=== PATIENT | female | born 1960 | race Caucasian/White ===

== ENCOUNTER → 2018-06-08 16:23 | Outpatient (CLI) | payer BC, SELFPAY ==
--- NOTE | 2018-06-08 16:29 | MM_ITS ---
MM Dig screening mamm BI w/CAD ORDERING PHYSICIAN : William Rosales MD PATIENT AGE: 57 years GENDER: Female COMPARISON: February 2016, March 2015, February 20142014 INDICATION: ITS.REASON: Routine Screening Mammogram. No hormones. No new complaints. Family history. Maternal great aunt with breast cancer TECHNIQUE: Standard CC and MLO images were obtained. R2 CAD reviewed. Additional axillary cc view both breast FINDINGS: Mildly dense breast tissue. . Moderate stable asymmetry similar to multiple previous studies. No new dominant mass nor suspicious calcifications RIGHT BREAST: Stable [place] of fibroglandular density at the superior right breast is unchanged since prior studies. LEFT BREAST: Stable fibroglandular density pattern upper-outer quadrant ----IMPRESSION: --- Stable bilateral mammogram. Follow-up in one year. BI-RADS Category: 2 Benign Finding(s) RECOMMENDED FOLLOW-UP: 1YR 1 YEAR FOLLOW-UP (A letter has been sent to the patient regarding results of the study.) .
== END ==
PROVIDERS: PCP Family Medicine; Visit Provider Nurse Practitioner Obstetrics & Gynecology
DX: Z12.31 Encounter for screening mammogram for malignant neoplasm of breast (principal)
CPT/HCPCS: 77067

== ENCOUNTER → 2019-10-04 14:09 | Outpatient (CLI) | payer BC, SELFPAY ==
--- NOTE | 2019-10-04 14:13 | CA_ITS ---
APPROVED REPORT Bilateral Lower Extremity Venous Study for DVT. Data Operations Director: HENRRY Indications Lower Extremity Pain: Vein Imaging CFV (L): compressive, spontaneous, phasic, augmentation SFJ (L): compressive, spontaneous, phasic, augmentation FEM (L): compressive, spontaneous, phasic, augmentation POP (L): compressive, spontaneous, phasic, augmentation PTV (L): Compressible GSV (L): Compressible Peroneals (L):Compressible Findings No evidence of DVT or superficial thrombophlebitis in the veins scanned of the left lower extremity. Conclusion No evidence of DVT or superficial thrombophlebitis in the veins scanned of the left lower extremity. Electronically signed by : Kody Nur MD 10/04/2019 17:39:59
[2019-10-04 15:36] LABS: Basophils % 0.8 % (0.1-2.0); Eosinophils # 0.1 K/mm3 (0.0-0.4); Eosinophils % 2.6 % (0.1-12.0); Hematocrit 37.6 % (37.0-47.0); Hemoglobin 12.8 g/dL (12.2-16.2); Mean Corpuscular HGB Conc 34.1 g/dL (31.8-35.4); Mean Corpuscular Hemoglobin 32.2 pg (27.0-31.2); Mean Corpuscular Volume 94.5 fl (81-99); Mean Platelet Volume 7.4 fl (7.4-10.4); Monocytes # 0.2 K/mm3 (0.1-1.0); Monocytes % 4.5 % (1.7-9.3); Neutrophils % 74.1 % (37.0-80.0); Platelet Count 303 K/mm3 (142-424); Red Blood Count 3.98 M/mm3 (4.20-5.40); Red Cell Distribution Width 12.9 % (11.5-17.5); White Blood Count 5.3 K/mm3 (4.8-10.8)
[2019-10-04 15:48] LABS: INR 0.96 (0.9-1.1)
[2019-10-04 17:26] LABS: C-Reactive Protein 1.2 mg/L (0-4)
[2019-10-04 17:51] LABS: Thyroid Stimulating Hormone 1.09 uIU/mL (0.465-4.68)
[2019-10-06 16:13] LABS: Vitamin B12 223 pg/mL (232-1245)
== END ==
PROVIDERS: PCP Nurse Practitioner Family; Visit Provider Nurse Practitioner Family
DX: M79.662 Pain in left lower leg (principal); R20.8 Other disturbances of skin sensation; M79.89 Other specified soft tissue disorders
CPT/HCPCS: 36415; 82607; 84443; 85025; 85610; 86140; 93971

== ENCOUNTER → 2020-01-26 13:28 | Outpatient (CLI) | payer BC, SELFPAY ==
--- NOTE | 2020-01-26 13:28 | MM_ITS ---
PROCEDURE: MM DIG SCREENING MAMM BI W/CAD Digital Breast Tomosynthesis Included CLINICAL INDICATION: screening xmg There is a history of breast cancer in the patient's maternal great aunt and paternal aunt. COMPARISON: [facility] DIG MAMM-SCREEN KAYCEE from 02/08/2016 [facility] DIG MAMM-SCREEN KAYCEE W/CAD from 02/17/2017 [facility] MM Dig screening mamm BI w/CAD from 06/08/2018 TECHNIQUE: Standard CC and MLO images and 3D Tomosynthesis was obtained. R2 CAD reviewed. FINDINGS: Moderate scattered fibroglandular densities are seen in the central portions of both breasts. Few benign-appearing microcalcifications in each breast. There is no suspicious lesion and no suspicious microcalcifications. IMPRESSION: Fibrofatty parenchyma with no suspicious lesions seen BI-RAD Category: 2 Benign Finding(s) FOLLOW-UP: 1YR 1 Year Follow-up (A letter has been sent to the patient regarding results of the study.) Dictated by: Dr. Javad Cuevas MD 01/28/2020 11:[address] Javad Cuevas MD in [place] 01/28/2020 11:51
== END ==
PROVIDERS: PCP Nurse Practitioner Family; Visit Provider Nurse Practitioner Obstetrics & Gynecology
DX: Z12.31 Encounter for screening mammogram for malignant neoplasm of breast (principal)
CPT/HCPCS: 77063; 77067

== ENCOUNTER → 2020-08-17 09:04 | Outpatient (CLI) | payer BC, SELFPAY ==
[2020-08-18 07:51] LABS: Covid-19 Nasal PCR Sendout P&C NEGATIVE
== END ==
PROVIDERS: PCP Family Medicine; Visit Provider Nurse Practitioner Family
DX: Z11.52 Encounter for screening for COVID-19 (principal)
CPT/HCPCS: U0004

== ENCOUNTER → 2020-08-28 15:22 | Outpatient (CLI) | payer BC, SELFPAY ==
[2020-08-30 11:41] LABS: Covid-19 Nasal PCR Sendout P&C Negative
== END ==
PROVIDERS: PCP Nurse Practitioner Family; Visit Provider Nurse Practitioner Family
DX: Z20.822 Contact with and (suspected) exposure to COVID-19 (principal)
CPT/HCPCS: U0004

== ENCOUNTER → 2020-12-25 15:26 | Outpatient (CLI) | payer BC, SELFPAY | PROVIDERS: PCP Family Medicine; Visit Provider Nurse Practitioner Family | DX: Z20.822 Contact with and (suspected) exposure to COVID-19 (principal) | CPT/HCPCS: U0003 ==

== ENCOUNTER → 2021-01-31 12:48 | Outpatient (CLI) | payer BC, SELFPAY ==
--- NOTE | 2021-01-31 12:48 | MM_ITS ---
PROCEDURE INFORMATION: Exam: MG Screening 3D Mammography Exam date and time: 01/31/2021 12:48 PM Age: 60 years old Clinical indication: Encounter for screening mammogram for malignant neoplasm of breast Positive family history of breast cancer: Aunts TECHNIQUE: Imaging protocol: Screening tomosynthesis and 2D mammography including computer-aided detection (CAD) when performed. COMPARISON: 1. MG MM DIG SCREENING MAMM BI W/CAD 01/26/2020 1:47 PM 2. MG [facility] MM Dig screening mamm BI w/CAD 06/08/2018 4:39 PM FINDINGS: MAMMOGRAPHY: Breast composition: The breast tissue is heterogeneously dense, which may obscure small masses. Mass: None. Architectural distortion: None. Calcifications: No suspicious calcifications. Asymmetric density: None. Skin thickening: None. Axillary adenopathy: None. IMPRESSION: No mammographic evidence of malignancy. Annual screening is recommended unless otherwise clinically indicated. ASSESSMENT: BI-RADS Category 1: Negative
== END ==
PROVIDERS: PCP Family Medicine; Visit Provider Nurse Practitioner Obstetrics & Gynecology
DX: Z12.31 Encounter for screening mammogram for malignant neoplasm of breast (principal)
CPT/HCPCS: 77063; 77067

== ENCOUNTER 2021-07-04 16:30 | Emergency (ER) | payer BC, SELFPAY ==
[2021-07-04 16:40] VITALS: BP 157/75; PULSE 85; RESP 18; TEMP 37.3; O2SAT 98; BMI 36.5
[2021-07-04 17:13] LABS: UTC Strep Screen (Rapid) Negative (Negative)
--- NOTE | 2021-07-04 17:19 | HMH.EDUTC ---
[facility] [place]ression: Bronchitis Sinusitis Qualifiers: Sinusitis location: unspecified location Chronicity: unspecified Qualified Code(s): J32.9 - Chronic sinusitis, unspecified Disposition: Home, Self-Care Condition on Discharge: Good Instructions: Sinusitis, Acute Bronchitis, DI for Sinusitis Additional Instructions: *Monitor Temp, Over the counter Motrin or Tylenol as directed/as needed Tylenol every 4 hours and Motrin every 6 hours (as long as your family doctor has told you that you can take it) for fever or pain. and straight to ER if unable to lower temp less than 101.0 after medication given *Warm salt water gargles may help to soothe the throat *Throat Lozenges *Warm fluids like tea with honey may help to soothe the throat *Sleep elevated *Humidifier/Vaporizer *Flonase 2 sprays in each nostril daily but be aware that it may take 2-3 days before you notice improvement Your throat swab was sent for culture. Those results are typically sent to your primary care. Be sure to follow up in 2-3 days with your family doctor/primary care physician if no improvement so they can review those result and treat if necessary. If you don?t have a primary care doctor, I recommend you get one but in the mean time, you will have to return to a walk in clinic Follow up IMMEDIATELY for new or worsening symptoms or no Noticeable improvement over the next 48-72 hours. 911 for difficulty breathing or swallowing You were tested for today for COVID19 your test result should be back in the next 24-48 hours, you may Check your results on the [facility] My health portal or in person at the [employer] information from [phone] if you have issues logging vice president of operations [phone] You was given a handout with instructions for Self Quarantine and Self isolation for while you wait on test results and what to do if they are positive If you are positive the Health Dept will be contacting you also Make sure to take your Vitamins Vit. C Vit D and Zinc if you can take them Prescriptions: Benzonatate [Benzonatate 100mg cap] 100 mg PO Q8HP PRN #30 cap PRN Reason: Cough Transmission Status: Received by [facility] Amoxicillin/Potassium Clav [Augmentin 875-125 Tablet] 1 tab PO Q12H 10 Days #20 tab Transmission Status: Received by [facility] Referrals: Umesh Prado MD [Primary Care Provider] - As needed Forms: Work/School Release Time of Disposition: 17:38 Medical Decision Making - Geremias Inquiry Pt receiving controlled substance: No Geremias was queried for this patient: No Vital Signs: 07/04/21 16:40 07/04/21 17:48 Temperature 99.1 F 99.1 F Temperature Source Oral Pulse Rate 85 Pulse Rate [Left Brachial] 85 Respiratory Rate 18 18 Blood Pressure 157/75 H Blood Pressure [Left Arm] 157/75 H Blood Pressure Mean [Left Arm] 102 Blood Pressure Source [Left Arm] Automatic Cuff Blood Pressure Position [Left Arm] Sitting 02 Sat by Pulse Oximetry 98 Oxygen Delivery Method Room Air - Lab Data Lab results reviewed: Yes: I reviewed the patient's lab results. Lab Results 07/04/21 17:12: Strep Scn Rapid Clinic Negative Orders (Tests/Meds): ORDERS Category Date Time Status Covid-19 Nasal PCR ([facility]) Routine Lab 07/04/21 17:30 Received Strep Screen Confirmation Stat Micro 07/04/21 17:12 Received [facility] UTC HPI - General Stated complaint: sore throat,cough,SOB,RILEY,Congestion runny nose Time Seen by Provider: 07/04/21 17:19 Mode of Arrival: Ambulatory Source of Information: Patient Limitations: No Limitations Description of Symptoms (Recalled from Triage Doc. by RN): PATIENT C/O HEADACHE, SORE THROAT, SINUS DRAINAGE, COUGH WITH GREEN MUCOUS, RUNNY NOSE, AND CONGESTION THAT STARTED FRIDAY NIGHT HEENT Symptoms (Recalled from RN notes): Yes Resp Symptoms (Recalled from RN notes): Yes Skin Symptoms (Recalled from RN notes): No MS Symptoms (Recalled from RN notes): No Functional Status (Recalled from RN note
[2021-07-04 17:48] VITALS: BP 157/75; PULSE 85; RESP 18; TEMP 37.3; O2SAT 98
[2021-07-04 17:56] LABS: UTC Influenza A Antigen Negative (Negative)
[2021-07-04 17:57] LABS: UTC Influenza B Antigen Negative (Negative)
== END 2021-07-04 17:53 | disposition home or self-care (01) ==
PROVIDERS: Emergency Provider Nurse Practitioner; PCP Family Medicine
DX: J20.9 Acute bronchitis, unspecified (principal); J32.9 Chronic sinusitis, unspecified; F33.1 Major depressive disorder, recurrent, moderate; K21.9 Gastro-esophageal reflux disease without esophagitis; M79.7 Fibromyalgia; I10 Essential (primary) hypertension; E78.5 Hyperlipidemia, unspecified; Z20.822 Contact with and (suspected) exposure to COVID-19; Z79.899 Other long term (current) drug therapy
CPT/HCPCS: 87804; 87880; 99203; C9803; G0463; U0003; U0005

== ENCOUNTER 2021-07-19 16:34 | Emergency (ER) | payer BC, SELFPAY ==
[2021-07-19 17:27] VITALS: BP 130/80; PULSE 74; RESP 16; TEMP 37; O2SAT 96; BMI 36.8
--- NOTE | 2021-07-19 17:56 | HMH.EDUTC ---
[facility] [place] Disposition Clinical Impression: Sinusitis Qualifiers: Sinusitis location: unspecified location Chronicity: unspecified Qualified Code(s): J32.9 - Chronic sinusitis, unspecified Disposition: Home, Self-Care Condition on Discharge: Good Instructions: Sinusitis, DI for Sinusitis Additional Instructions: *Monitor Temp, Over the counter Motrin or Tylenol as directed/as needed Tylenol every 4 hours and Motrin every 6 hours (as long as your family doctor has told you that you can take it) for fever or pain. and straight to ER if unable to lower temp less than 101.0 after medication given *Warm salt water gargles may help to soothe the throat *Throat Lozenges *Warm fluids like tea with honey may help to soothe the throat *Sleep elevated *Humidifier/Vaporizer Start Azithromycin Follow up IMMEDIATELY for new or worsening symptoms or no Noticeable improvement over the next 48-72 hours. 911 for difficulty breathing or swallowing Prescriptions: Azithromycin [Z-Praveen 250mg Tab] 250 mg PO DIRECTED #6 tab Transmission Status: Received by [facility] Referrals: Umesh Prado MD [Primary Care Provider] - Medical Decision Making - Geremias Inquiry Pt receiving controlled substance: No Geremias was queried for this patient: No Vital Signs: 07/19/21 17:27 Temperature 98.6 F Temperature Source Oral Pulse Rate [Right Radial] 74 Respiratory Rate 16 Blood Pressure [Right Arm] 130/80 Blood Pressure Mean [Right Arm] 96 Blood Pressure Source [Right Arm] Automatic Cuff Blood Pressure Position [Right Arm] Sitting 02 Sat by Pulse Oximetry 96 Oxygen Delivery Method Room Air Orders (Tests/Meds): ED MEDICATIONS Discontinued Medications Generic Name Dose Route Start Last Admin Trade Name Freq PRN Reason Stop Dose Admin Methylprednisolone Sodium Succinate 125 mg 07/19/21 18:09 07/19/21 18:21 Methylprednisolone Sod Succ 125mg Vial IM 07/19/21 18:10 125 mg ONCE ONE Administration Medical Decision Narrative: Patient state that she has taken azithromycin and solu medrol in the past without complications or reactions [facility] [place] HPI - General Stated complaint: SORE THROAT,COUGH Time Seen by Provider: 07/19/21 17:57 Mode of Arrival: Ambulatory Source of Information: Patient Limitations: No Limitations Description of Symptoms (Recalled from Triage Doc. by RN): Pt was put on augmentin on 07/04/2021 and does not feel any better from previous visit. She was diagnosed with bronchitis and a sinus infection. HEENT Symptoms (Recalled from RN notes): No Resp Symptoms (Recalled from RN notes): No Skin Symptoms (Recalled from RN notes): No MS Symptoms (Recalled from RN notes): No Functional Status (Recalled from RN notes): n/a - History of Present Illness Provider Complaint: Patient states that she was recently seen and treated for sinusitis States that she was feeling better then after she finished the medication and then the symptoms returned so she came back in to get something else to help - Related Data Home Medications Medication Instructions Recorded Confirmed Amitriptyline HCl [Elavil 50mg 50 mg PO DAILY 11/18/17 02/19/21 tablet] Aspirin [Aspir 81] 81 mg PO DAILY 11/18/17 02/19/21 Cetirizine HCl [Zyrtec] 10 mg PO DAILY 11/18/17 02/19/21 Esomeprazole Magnesium [Nexium] 20 mg PO DAILY 11/18/17 02/19/21 Gabapentin [Gabapentin 300mg Cap] 300 mg PO BID 11/18/17 02/19/21 Simvastatin [Zocor] 40 mg PO DAILY 11/18/17 02/19/21 Tizanidine HCl [Zanaflex 4mg 4 mg PO DAILY 11/18/17 02/19/21 tablet] Triamterene/Hydrochlorothiazid 25 mg PO DAILY 11/18/17 02/19/21 [Maxzide-25 tablet] atenoloL [Atenolol 50mg Tab] 50 mg PO DAILY 11/18/17 02/19/21 hydrOXYzine pamoate [Vistaril 25mg 25 mg PO DIRECTED 11/18/17 02/19/21 capsule] albuterol sulfate 90 mcg/actuation INHALATION 09/28/19 02/19/21 aerosol inhaler fluticasone propionate 50 INTRANASAL 09/28/19 02/19/21 mcg/actuation nasal spray,suspen
[2021-07-19 19:02] VITALS: BP 130/80; PULSE 74; RESP 16; TEMP 37; O2SAT 96
== END 2021-07-19 19:02 | disposition home or self-care (01) ==
PROVIDERS: Emergency Provider Nurse Practitioner; PCP Family Medicine
DX: J01.90 Acute sinusitis, unspecified (principal); J45.909 Unspecified asthma, uncomplicated; Z91.040 Latex allergy status; F33.1 Major depressive disorder, recurrent, moderate; I10 Essential (primary) hypertension; E78.5 Hyperlipidemia, unspecified; K21.9 Gastro-esophageal reflux disease without esophagitis; Z79.899 Other long term (current) drug therapy
CPT/HCPCS: 99202; G0463

== ENCOUNTER 2021-08-12 14:15 | Emergency (ER) | payer BC, SELFPAY ==
[2021-08-12 16:30] VITALS: BP 126/86; PULSE 76; RESP 21; TEMP 37.8; O2SAT 99; BMI 36.3
[2021-08-12 16:56] LABS: UTC Influenza A Antigen Negative (Negative)
[2021-08-12 16:57] LABS: UTC Influenza B Antigen Negative (Negative)
--- NOTE | 2021-08-12 17:05 | HMH.EDUTC ---
[facility] [place] Clinical Impression: Sinusitis Qualifiers: Sinusitis location: maxillary Chronicity: acute Recurrence: non-recurrent Qualified Code(s): J01.00 - Acute maxillary sinusitis, unspecified Disposition: Home, Self-Care Condition on Discharge: Good Instructions: DI for Sinusitis Additional Instructions: Start antibiotic patient to take as ordered for a full length of time even if you feel better. Sinus infections do not get better overnight. It may take 2-3 days to notice much improvement so be sure to use conservative measures as discussed for symptoms. Flonase 1 spray each nostril daily to help with nasal congestion, sinus and ear pressure/information Increase fluids Humidifier/vaporizer as needed Tylenol and ibuprofen as needed for fever or pain. If symptoms do not improve or get worse return or be seen in the ER Follow-up with primary care this week Prescriptions: cephALEXin [Cephalexin 500mg Tab] 500 mg PO BID 7 Days #14 tab Prescription Printed Fluticasone Propionate [Flonase 50mcg nasal spray 16gm] 1 spr NS DAILY 14 Days #9.9 ml Prescription Printed Referrals: Umesh Prado MD [Primary Care Provider] - Time of Disposition: 17:18 Medical Decision Making - Geremias Inquiry Pt receiving controlled substance: No Vital Signs: 08/12/21 16:30 Temperature 100.0 F H Temperature Source Oral Pulse Rate [Right Brachial] 76 Respiratory Rate 21 Blood Pressure [Right Arm] 126/86 Blood Pressure Mean [Right Arm] 99 Blood Pressure Source [Right Arm] Automatic Cuff Blood Pressure Position [Right Arm] Sitting 02 Sat by Pulse Oximetry 99 Oxygen Delivery Method Room Air - Lab Data Lab Results 08/12/21 16:42: Influenza Type A Ag Negative, Influenza Type B Ag Negative Orders (Tests/Meds): ORDERS Category Date Time Status Covid-19 Nasal PCR ([facility]) Routine Lab 08/12/21 16:33 Received [facility] [place]PI - General Chief complaint: [facility] Stated complaint: sore throat, cough, body aches, congestion, h/a Time Seen by Provider: 08/12/21 17:06 Mode of Arrival: Ambulatory Source of Information: Patient Limitations: No Limitations Description of Symptoms (Recalled from Triage Doc. by RN): PATIENT C/O FEVER, COUGH, HEADACHE, BODY ACHES, RUNNY NOSE, CONGESTION, AND WATERY EYES SINCE LAST NIGHT HEENT Symptoms (Recalled from RN notes): Yes Resp Symptoms (Recalled from RN notes): Yes Skin Symptoms (Recalled from RN notes): No MS Symptoms (Recalled from RN notes): No Functional Status (Recalled from RN notes): WNL - History of Present Illness Provider Complaint: 61 yr old female presnets for coughing up yellow/green sputum, yellow nasal congestion,body aches,and fever - Related Data Home Medications Medication Instructions Recorded Confirmed Amitriptyline HCl [Elavil 50mg 50 mg PO DAILY 11/18/17 02/19/21 tablet] Aspirin [Aspir 81] 81 mg PO DAILY 11/18/17 02/19/21 Cetirizine HCl [Zyrtec] 10 mg PO DAILY 11/18/17 02/19/21 Esomeprazole Magnesium [Nexium] 20 mg PO DAILY 11/18/17 02/19/21 Gabapentin [Gabapentin 300mg Cap] 300 mg PO BID 11/18/17 02/19/21 Simvastatin [Zocor] 40 mg PO DAILY 11/18/17 02/19/21 Tizanidine HCl [Zanaflex 4mg 4 mg PO DAILY 11/18/17 02/19/21 tablet] Triamterene/Hydrochlorothiazid 25 mg PO DAILY 11/18/17 02/19/21 [Maxzide-25 tablet] atenoloL [Atenolol 50mg Tab] 50 mg PO DAILY 11/18/17 02/19/21 hydrOXYzine pamoate [Vistaril 25mg 25 mg PO DIRECTED 11/18/17 02/19/21 capsule] albuterol sulfate 90 mcg/actuation INHALATION 09/28/19 02/19/21 aerosol inhaler fluticasone propionate 50 INTRANASAL 09/28/19 02/19/21 mcg/actuation nasal spray,suspension omalizumab 150 mg subcutaneous mg SQ 09/28/19 02/19/21 solution prednisone 5 mg tablet 5 mg PO Q OTHER DAY tab 09/28/19 02/19/21 alprazolam 0.25 mg tablet 0.25 mg PO DAILY 01/30/21 02/19/21 folic acid 1 mg tablet 1 mg PO tab 01/30/21 02/19/21 methotrexate sodium 2.5 mg tablet 2.5 mg PO tab 01/30
[2021-08-12 17:12] VITALS: BP 126/86; PULSE 76; RESP 21; TEMP 37.8; O2SAT 99
== END 2021-08-12 17:21 | disposition home or self-care (01) ==
PROVIDERS: Emergency Provider Nurse Practitioner Family; PCP Family Medicine
DX: U07.1 COVID-19 (principal); J01.00 Acute maxillary sinusitis, unspecified; F33.1 Major depressive disorder, recurrent, moderate; K21.9 Gastro-esophageal reflux disease without esophagitis; I10 Essential (primary) hypertension; E78.5 Hyperlipidemia, unspecified; M79.7 Fibromyalgia; Z91.040 Latex allergy status; Z79.899 Other long term (current) drug therapy
CPT/HCPCS: 87804; 99202; C9803; G0463; U0003; U0005

== ENCOUNTER 2021-10-02 16:35 | Emergency (ER) | payer BC, SELFPAY ==
[2021-10-02 17:02] VITALS: BP 176/78; PULSE 68; RESP 19; TEMP 37; O2SAT 98; BMI 36.7
--- NOTE | 2021-10-02 17:23 | HMH.EDUTC ---
[facility] [place] Disposition Clinical Impression: Sinusitis Qualifiers: Sinusitis location: unspecified location Chronicity: unspecified Qualified Code(s): J32.9 - Chronic sinusitis, unspecified Disposition: Home, Self-Care Condition on Discharge: Good Instructions: Sinusitis, DI for Sinusitis Additional Instructions: *Monitor Temp, Over the counter Motrin or Tylenol as directed/as needed Tylenol every 4 hours and Motrin every 6 hours (as long as your family doctor has told you that you can take it) for fever or pain. and straight to ER if unable to lower temp less than 101.0 after medication given *Warm salt water gargles may help to soothe the throat *Throat Lozenges *Warm fluids like tea with honey may help to soothe the throat *Sleep elevated *Humidifier/Vaporizer Take medication as prescribed Follow up IMMEDIATELY for new or worsening symptoms or no Noticeable improvement over the next 48-72 hours. 911 for difficulty breathing or swallowing Prescriptions: Doxycycline Monohydrate [Doxycycline Boyle 100mg Tab] 100 mg PO Q12 10 Days #20 tab Transmission Status: Pending to [facility] Referrals: Umesh Prado MD [Primary Care Provider] - As needed Time of Disposition: 17:38 Medical Decision Making - Geremias Inquiry Pt receiving controlled substance: No Geremias was queried for this patient: No Vital Signs: 10/02/21 17:02 Temperature 98.6 F Temperature Source Oral Pulse Rate [Right Brachial] 68 Respiratory Rate 19 Blood Pressure [Right Arm] 176/78 H Blood Pressure Mean [Right Arm] 110 Blood Pressure Source [Right Arm] Automatic Cuff Blood Pressure Position [Right Arm] Sitting 02 Sat by Pulse Oximetry 98 Medical Decision Narrative: Patient states that she has taken doxy and Solu Medrol in the past without complications or reactions [facility] [place] HPI - General Stated complaint: possible sinus infection Time Seen by Provider: 10/02/21 17:31 Description of Symptoms (Recalled from Triage Doc. by RN): Pt c/o sinus pressure, HEENT Symptoms (Recalled from RN notes): Yes Resp Symptoms (Recalled from RN notes): No Skin Symptoms (Recalled from RN notes): No MS Symptoms (Recalled from RN notes): No Functional Status (Recalled from RN notes): wnl - History of Present Illness Provider Complaint: Patient states that she has been having sinus pain and pressure along with headache and feeling pressure in her ears States that this is how she feels when she gets a bad sinus infection States that she has been trying to fight it off for the last couple of weeks but today it was worse so she came in - Related Data Home Medications Medication Instructions Recorded Confirmed Amitriptyline HCl [Elavil 50mg 50 mg PO DAILY 11/18/17 08/29/21 tablet] Aspirin [Aspir 81] 81 mg PO DAILY 11/18/17 08/29/21 Cetirizine HCl [Zyrtec] 10 mg PO DAILY 11/18/17 08/29/21 Esomeprazole Magnesium [Nexium] 20 mg PO DAILY 11/18/17 08/29/21 Gabapentin [Gabapentin 300mg Cap] 300 mg PO BID 11/18/17 08/29/21 Simvastatin [Zocor] 40 mg PO DAILY 11/18/17 08/29/21 Tizanidine HCl [Zanaflex 4mg 4 mg PO DAILY 11/18/17 08/29/21 tablet] Triamterene/Hydrochlorothiazid 25 mg PO DAILY 11/18/17 08/29/21 [Maxzide-25 tablet] atenoloL [Atenolol 50mg Tab] 50 mg PO DAILY 11/18/17 08/29/21 hydrOXYzine pamoate [Vistaril 25mg 25 mg PO DIRECTED 11/18/17 08/29/21 capsule] albuterol sulfate 90 mcg/actuation INHALATION 09/28/19 08/29/21 aerosol inhaler omalizumab 150 mg subcutaneous mg SQ 09/28/19 08/29/21 solution alprazolam 0.25 mg tablet 0.25 mg PO DAILY 01/30/21 08/29/21 folic acid 1 mg tablet 1 mg PO tab 01/30/21 08/29/21 methotrexate sodium 2.5 mg tablet 2.5 mg PO tab 01/30/21 08/29/21 paroxetine HCl 40 mg tablet 40 mg PO tab 01/30/21 08/29/21 Previous Rx's Medication Instructions Recorded estradiol 1 mg tablet 1 mg PO DAILY #90 tab 01/10/21 medroxyprogesterone 2.5 mg tablet 2.5 mg PO DAILY #90 tab 01/10/21 terconazole 0.8 % vaginal cre
[2021-10-02 18:00] VITALS: BP 164/70; PULSE 70; RESP 16; TEMP 36.6; O2SAT 98
== END 2021-10-02 18:02 | disposition home or self-care (01) ==
PROVIDERS: Emergency Provider Nurse Practitioner; PCP Family Medicine
DX: J32.9 Chronic sinusitis, unspecified (principal); K21.9 Gastro-esophageal reflux disease without esophagitis
CPT/HCPCS: 96372; 99212; G0463

== ENCOUNTER 2021-11-10 15:47 | Emergency (ER) | payer BC, SELFPAY ==
--- NOTE | 2021-11-10 16:21 | XR_ITS ---
PROCEDURE INFORMATION: Exam: XR Chest Exam date and time: 11/10/2021 4:19 PM Age: 61 years old Clinical indication: Cough; Additional info: Chest congestion and cough TECHNIQUE: Imaging protocol: XR of the chest. Views: 2 views. COMPARISON: CR CXR2V XR chest 2V 11/22/2017 8:38 PM FINDINGS: Lungs: Unremarkable. No consolidation. Pleural spaces: Unremarkable. No pleural effusion. No pneumothorax. Heart/Mediastinum: Unremarkable. No cardiomegaly. Bones/joints: Unremarkable. IMPRESSION: No acute findings.
[2021-11-10 16:32] VITALS: BP 172/74; PULSE 81; RESP 18; TEMP 36.9; O2SAT 96; BMI 50.8
--- NOTE | 2021-11-10 17:22 | HMH.EDUTC ---
[facility] Disposition Clinical Impression: Acute bronchitis Qualifiers: Bronchitis organism: unspecified organism Qualified Code(s): J20.9 - Acute bronchitis, unspecified Sinusitis Qualifiers: Sinusitis location: unspecified location Chronicity: acute Recurrence: non-recurrent Qualified Code(s): J01.90 - Acute sinusitis, unspecified Disposition: Home, Self-Care Condition on Discharge: Good Instructions: Acute Bronchitis, DI for Sinusitis, DI for Acute Bronchitis Additional Instructions: Drink plenty of fluids. Take tylenol or ibuprofen for pain or fever. Take the medications as directed. Follow up with your regular doctor. GO TO THE ER FOR ANY WORSENING SYMPTOMS Don't start the oral steroids until tomorrow, since you had the shot here today. Prescriptions: Benzonatate [Benzonatate 100mg cap] 100 mg PO TIDP PRN #30 cap PRN Reason: Cough Transmission Status: Received by [facility] methylPREDNISolone [Medrol] 4 mg PO DIRECTED 6 Days #21 packet Transmission Status: Received by [facility] guaiFENesin [Mucinex 600mg tablet] 1 - 2 tab PO BIDP PRN #30 tab PRN Reason: Congestion Transmission Status: Received by [facility] Azithromycin [Z-Praveen 250mg Tab*] 250 mg PO UD DOSE PK #6 tab Transmission Status: Received by [facility] Referrals: Sofia Suarez APRN [Primary Care Provider] - Time of Disposition: 17:58 Medical Decision Making - Medical Records Medical records reviewed: No: I reviewed the patient's medical records. - Geremias Inquiry Pt receiving controlled substance: No Vital Signs: 11/10/21 16:32 11/10/21 18:10 Temperature 98.5 F 98.5 F Temperature Source Oral Pulse Rate 81 Pulse Rate [Left] 81 Respiratory Rate 18 18 Blood Pressure 172/74 H Blood Pressure [Right Arm] 172/74 H Blood Pressure Mean [Right Arm] 106 02 Sat by Pulse Oximetry 96 Orders (Tests/Meds): ED MEDICATIONS Discontinued Medications Generic Name Dose Route Start Last Admin Trade Name Freq PRN Reason Stop Dose Admin Ceftriaxone Sodium 1 gm 11/10/21 17:33 11/10/21 17:50 Ceftriaxone 1gm Vial IM 11/10/21 17:34 1 gm ONCE ONE Administration Lidocaine HCl 0 ml 11/10/21 17:33 11/10/21 17:49 Lidocaine 1% 5ml Pf Vial IM 11/10/21 17:34 2 ml ONCE ONE Administration Methylprednisolone Sodium Succinate 125 mg 11/10/21 17:33 11/10/21 17:50 Methylprednisolone Sod Succ 125mg Vial IM 11/10/21 17:34 125 mg ONCE ONE Administration [facility] HPI - General Stated complaint: soa, flu last week Time Seen by Provider: 11/10/21 17:22 Mode of Arrival: Ambulatory Source of Information: Patient Limitations: No Limitations Description of Symptoms (Recalled from Triage Doc. by RN): pt tested positive for the flu last weekend. pt c/o SOA, cheset congestion and a cough that has continued to worsen. HEENT Symptoms (Recalled from RN notes): No Resp Symptoms (Recalled from RN notes): Yes Skin Symptoms (Recalled from RN notes): No MS Symptoms (Recalled from RN notes): No Functional Status (Recalled from RN notes): wnl - History of Present Illness Provider Complaint: She states that she had influenza last week. She got better from that, but now she is having a productive cough and chest congestion. - Related Data Home Medications Medication Instructions Recorded Confirmed Amitriptyline HCl [Elavil 50mg 50 mg PO DAILY 11/18/17 08/29/21 tablet] Aspirin [Aspir 81] 81 mg PO DAILY 11/18/17 08/29/21 Cetirizine HCl [Zyrtec] 10 mg PO DAILY 11/18/17 08/29/21 Esomeprazole Magnesium [Nexium] 20 mg PO DAILY 11/18/17 08/29/21 Gabapentin [Gabapentin 300mg Cap] 300 mg PO BID 11/18/17 08/29/21 Simvastatin [Zocor] 40 mg PO DAILY 11/18/17 08/29/21 Tizanidine HCl [Zanaflex 4mg 4 mg PO DAILY 11/18/17 08/29/21 tablet] Triamterene/Hydrochlorothiazid 25 mg PO DAILY 11/18/17 08/29/21 [Maxzide-25 tablet] atenoloL [Atenolol 50mg Tab] 50 mg PO DAILY 11/18/17 08/29/21
[2021-11-10 18:10] VITALS: BP 172/74; PULSE 81; RESP 18; TEMP 36.9
== END 2021-11-10 18:11 | disposition home or self-care (01) ==
PROVIDERS: Emergency Provider Nurse Practitioner Family; PCP Nurse Practitioner Family
DX: J20.9 Acute bronchitis, unspecified (principal); J01.90 Acute sinusitis, unspecified; I10 Essential (primary) hypertension; K21.9 Gastro-esophageal reflux disease without esophagitis; E78.5 Hyperlipidemia, unspecified; M35.00 Sjogren syndrome, unspecified; F32.A Depression, unspecified; Z91.040 Latex allergy status; Z79.51 Long term (current) use of inhaled steroids; Z79.52 Long term (current) use of systemic steroids; Z79.890 Hormone replacement therapy; Z79.899 Other long term (current) drug therapy; Z82.49 Family history of ischemic heart disease and other diseases of the circulatory system; Z83.438 Family history of other disorder of lipoprotein metabolism and other lipidemia; Z80.9 Family history of malignant neoplasm, unspecified; Z83.3 Family history of diabetes mellitus
CPT/HCPCS: 71046; 96372; 99213; G0463; J0696

== ENCOUNTER → 2022-02-19 09:52 | Outpatient (CLI) | payer BC, SELFPAY ==
--- NOTE | 2022-02-19 09:52 | MM_ITS ---
PROCEDURE INFORMATION: Exam: MG Bilateral Screening 3D Mammography Exam date and time: 02/19/2022 9:49 AM Age: 61 years old Clinical indication: Screening examination TECHNIQUE: Imaging protocol: Bilateral Screening tomosynthesis and 2D mammography including computer-aided detection (CAD) when performed. COMPARISON: 1. MG MM DIG SCREENING MAMM BI W/CAD 01/31/2021 12:58 PM 2. MG MM DIG SCREENING MAMM BI W/CAD 01/26/2020 1:47 PM FINDINGS: MAMMOGRAPHY: Breast composition: The breasts are heterogeneously dense, which may obscure small masses. Mass: None. Architectural distortion: None. Calcifications: No suspicious calcifications. Asymmetric density: None. Skin thickening: None. Axillary adenopathy: None. IMPRESSION: No mammographic evidence of malignancy. Annual screening is recommended unless otherwise clinically indicated. ASSESSMENT: BI-RADS Category 1: Negative
== END ==
PROVIDERS: PCP Nurse Practitioner Family; Visit Provider Nurse Practitioner Obstetrics & Gynecology
DX: Z12.31 Encounter for screening mammogram for malignant neoplasm of breast (principal)
CPT/HCPCS: 77063; 77067

== ENCOUNTER → 2023-02-13 12:25 | Outpatient (CLI) | payer BC, SELFPAY ==
--- NOTE | 2023-02-13 12:35 | ECG_ITS ---
APPROVED REPORT Exam: Resting ECG HR:76 bpm ECG Measurements Heart Rate 76 AXES UT 132 P 9 QRSd 105 QRS 10 QT 409 T 52 QTc 439 Conclusion SINUS RHYTHM LOW QRS VOLTAGE IN PRECORDIAL LEADS [QRS DEFLECTION < 1.0 mV IN CHEST LEADS] Late R wave progression BORDERLINE ECG UNCONFIRMED REPORT Electronically signed by : Umesh Walter MD 02/13/2023 21:33:52
--- NOTE | 2023-02-13 12:50 | XR_ITS ---
FINAL REPORT CLINICAL HISTORY: SOB X 5 DAYS, PRODUCTIVE COUGH COMPARISON: 11/10/2021 FINDINGS: Two views of the chest were obtained. The heart size and pulmonary vascularity are within normal limits. The mediastinum is normal. No acute pulmonary abnormality is identified. There is no pneumothorax. The bony thorax is intact. IMPRESSION: No active cardiopulmonary disease. Reviewed, Interpreted and Dictated by Anastacio Almazan III, MD Transcribed by Minal Alfonso Authenticated and . [facility]
[2023-02-13 12:51] LABS: Basophils # 0.1 K/mm3 (0-0.2); Basophils % 0.8 % (0.1-2.0); Eosinophils # 0.1 K/mm3 (0.0-0.4); Eosinophils % 1.1 % (0.1-12.0); Hematocrit 33.1 % (37.0-47.0); Lymphocytes # 3.7 K/mm3 (0.7-4.5); Lymphocytes % 57.8 % (10-50); Mean Corpuscular HGB Conc 33.1 g/dL (31.8-35.4); Mean Corpuscular Hemoglobin 29.8 pg (27.0-31.2); Mean Corpuscular Volume 90.1 fl (81-99); Mean Platelet Volume 10.3 fl (7.4-10.4); Monocytes # 0.3 K/mm3 (0.1-1.0); Monocytes % 4.4 % (1.7-9.3); Neutrophils # 2.3 K/mm3 (1.8-7.8); Neutrophils % 35.9 % (37.0-80.0); Platelet Count 192 K/mm3 (142-424); Red Blood Count 3.68 M/mm3 (4.20-5.40); Red Cell Distribution Width 14.3 % (11.5-17.5); White Blood Count 6.3 K/mm3 (4.8-10.8)
[2023-02-13 13:01] LABS: MANUAL DIFFERENTIAL MANUAL DIFFERENTIAL (MANUAL DIFF)
[2023-02-13 13:38] LABS: Chloride 94 mmol/L (98-107); Potassium 3.6 mmoL/L (3.5-5.1); Sodium 129 mmol/L (136-145)
[2023-02-13 13:48] LABS: Alanine Aminotransferase 44 U/L (12-78); Albumin Level 3.3 g/dl (3.5-5.0); Albumin/Globulin Ratio 1.3 (1.1-1.8); Alkaline Phosphatase 139 U/L (38-126); Anion Gap 9.6 mEq/L (5-15); Aspartate Amino Transferase 57 U/L (14-36); Bilirubin,Total 0.4 mg/dl (0.2-1.3); Blood Urea Nitrogen 9 mg/dl (7-17); Calcium 8.2 mg/dl (8.4-10.2); Carbon Dioxide 29 mmol/L (22.0-30.0); Chol/HDL Ratio 3.5 (1-3.5); Cholesterol 109 mg/dl (140-200); Estimated Glomerular Filt Rate 73 ml/min (>60); GFR (African American) 88 ML/MIN (>60); Globulin 2.5 g/dL (1.3-3.2); Glucose 120 mg/dl (74-100); HDL Cholesterol 31 mg/dl (40-60); Total Protein,Serum 5.8 g/dl (6.3-8.2); Triglycerides 290 mg/dl (30-150); VLDL Cholesterol 58 mg/dL (0-40)
[2023-02-13 13:53] LABS: Direct LDL Cholesterol 44.22 mg/dL (100-129)
[2023-02-13 13:54] LABS: Troponin I 0.02 ng/ml (0.00-0.034)
[2023-02-13 14:12] LABS: Thyroid Stimulating Hormone 2.28 uIU/mL (0.465-4.68)
[2023-02-13 14:19] LABS: Ferritin 173 ng/ml (11.1-264)
[2023-02-13 14:39] LABS: Vitamin B12 234 pg/mL (239-931)
[2023-02-13 14:50] LABS: Eosinophils % 1 % (0-3); Lymphocytes % 18 % (10-50); Monocytes % 6 % (2-9); Neutrophils % 75 % (42-76); Platelet Estimate Normal; RBC Morphology Normal; Total Cells Counted 100
[2023-02-14 16:08] LABS: EBV Ab VCA, IgM 57.6 U/mL (0.0-35.9); EBV Nuclear Antigen Ab, IgG >600.0 U/mL (0.0-17.9)
== END ==
LOC: LAB 12:26
PROVIDERS: PCP Nurse Practitioner Family; Visit Provider Nurse Practitioner Family
DX: R06.02 Shortness of breath (principal); D72.819 Decreased white blood cell count, unspecified; R53.1 Weakness
CPT/HCPCS: 36415; 71046; 80053; 80061; 82607; 82728; 84443; 84484; 85007; 85025; 86664; 86665; 93005

== ENCOUNTER → 2023-02-24 13:04 | Outpatient (CLI) | payer BC, SELFPAY ==
--- NOTE | 2023-02-24 13:04 | MM_ITS ---
PROCEDURE INFORMATION: Exam: MG Bilateral Screening 3D Mammography Exam date and time: 02/24/2023 12:53 PM Age: 62 years old Clinical indication: Screening. No family history of breast cancer. TECHNIQUE: Imaging protocol: Bilateral Screening tomosynthesis and 2D mammography including computer-aided detection (CAD) when performed. COMPARISON: 1. MG MM DIG SCREENING MAMM BI W/CAD 02/19/2022 9:49 AM 2. MG MM DIG SCREENING MAMM BI W/CAD 01/31/2021 12:58 PM 3. MG MM DIG SCREENING MAMM BI W/CAD 01/26/2020 1:47 PM 4. MG SCBI MM Dig screening mamm BI w/CAD 06/08/2018 4:39 PM FINDINGS: MAMMOGRAPHY: Breast composition: The breasts are heterogeneously dense, which may obscure small masses. Mass: Questionable 0.4 cm mass/asymmetry in the outer left breast posterior 3rd, CC view only, frame 24. Architectural distortion: None. Calcifications: No suspicious calcifications. Asymmetric density: None. Skin thickening: None. Axillary adenopathy: None. IMPRESSION: Patient will be recalled for left diagnostic spot compression in CC, full field lateral, and left sonography for further evaluation questionable left breast asymmetry. ASSESSMENT: BI-RADS Category 0: Incomplete- Need Additional Imaging Evaluation and/or Prior Mammograms for Comparison
== END ==
PROVIDERS: PCP Nurse Practitioner Family; Visit Provider Nurse Practitioner Obstetrics & Gynecology
DX: Z12.31 Encounter for screening mammogram for malignant neoplasm of breast (principal)
CPT/HCPCS: 77063; 77067

== ENCOUNTER → 2023-03-07 15:10 | Outpatient (CLI) | payer BC, SELFPAY ==
--- NOTE | 2023-03-07 15:12 | CA_ITS ---
APPROVED REPORT EXAM: Comprehensive 2D, Doppler, and color-flow Echocardiogram Flask Carrier: Tosin Hawkins, RCS, RVS Ht: 5 ft 4 in Wt: 206lbs BSA: 1.98 BP: 123/55 mmHg Indications: Cp, ABN EKG, htn, Sjogrens syndrome 2D Dimensions Aortic Root 2.93 cm F: 2.7 - 3.3 LA Volume 76.80 mL Left Atrium 3.76 cm F: 2.7 - 3.8 LA Volume Index 38.79 mL/m2 (M/F) 16-34 LVOT 2.06 cm (M/F) 1.5-2.5 M-Mode Dimensions RVDd 2.55 cm (0.9-2.6) LA Diam 4.57 cm (1.9-4.0) LVDd 4.90 cm (3.5-5.7) Ao Diam 3.20 cm (2.0-3.7) LVDs 3.46 cm (3.5-5.7) IVSd 0.87 cm (0.6-1.1) PWd 0.87 cm (0.6-1.1) EF (Teich) 56.10% EPSs 0.27 cm FS 29.40% EDV (Teich) 112.80 mL TAPSE 2.66 (<1.7) ESV (Teich) 49.50 mL LV Diastology E Decel Time 197.00 (160-240 msec) E/A Ratio 0.99 MED E' 8.30 (< 7 cm/sec) MED A' 10.60 cm/s E'/MED E' Ratio 8.17 (>14) LAT E' 11.50 (<10 cm/sec) LAT A' 13.50 cm/s E/LAT E' Ratio 5.90 (>14) Aortic Valve LVOT Max 99.00 (70-110 cm/s) LVOT VTI 23.59 cm AoV Peak Bernardino. 154.00 (50-130 cm/s) AO Peak GR. 9.50 mmHg AO Mean GR. 4.70 (<5 mmHg) AO VTI 34.87 (18-25 cm) LISANDRO (VTI) 2.25 (2.5-4.5 cm2) Mitral Valve MV A Velocity 68.00 (40-130 cm/s) E/A Ratio 0.99 MV Decel. Time 197.00 (160-240 ms) Pulmonary Valve PV Peak Velocity 164.00 (50-150 cm/s) Left Ventricle The left ventricle is normal size. The left ventricular systolic function is normal. The left ventricular ejection fraction is within the normal range. There is normal left ventricular wall thickness. The left ventricular diastolic function is normal. LVEF is 60%. Right Ventricle The right ventricle is normal size. The right ventricular systolic function is normal. Atria Left atrium is mildly dilated. The right atrium size is normal. There is no Doppler evidence of interatrial shunt. Aortic Valve The aortic valve opens well. There is no aortic valvular stenosis. No aortic regurgitation is present. Mitral Valve The mitral valve is normal in structure. No evidence of mitral valve stenosis. Trace mitral regurgitation. Tricuspid Valve The tricuspid valve leaflets are thin and pliable. Trace tricuspid regurgitation. RVSP is normal. Pulmonic Valve The pulmonary valve is normal in structure. Trace pulmonic regurgitation. Great Vessels The aortic root is normal in size. The ascending aorta is not well visualized. IVC is normal in size and collapses >50% with inspiration. Pericardium There is no pericardial effusion. Other Information Study Quality: Adequate Conclusion Normal biventricular systolic function. No significant valvular disease. Normal RVSP. Electronically signed by : Mirta Thompson, 03/09/2023 14:48:03
== END ==
LOC: RT 15:10
PROVIDERS: PCP Nurse Practitioner Family; Visit Provider Physician Assistant
DX: R07.9 Chest pain, unspecified (principal); R94.31 Abnormal electrocardiogram [ECG] [EKG]; Z82.49 Family history of ischemic heart disease and other diseases of the circulatory system
CPT/HCPCS: 93306

== ENCOUNTER → 2023-03-17 14:40 | Outpatient (CLI) | payer BC, SELFPAY ==
--- NOTE | 2023-03-17 14:41 | US_ITS ---
PROCEDURE INFORMATION: Exam: US Left Breast, Complete MG Left Diagnostic Breast Tomosynthesis Exam date and time: 03/17/2023 3:26 PM Age: 62 years old Clinical indication: Patient recalled on the basis of a screening mammogram for further evaluation; Left breast; mass TECHNIQUE: Imaging protocol: Complete ultrasound of all four quadrants of the left breast and the retroareolar regions, including ultrasound of the axilla when performed. Left Diagnostic tomosynthesis and 2D mammography including computer-aided detection (CAD) when performed. Unilateral or bilateral exam. COMPARISON: MG MM DIG MAMM DX UNILAT LT CAD 03/17/2023 2:33 PM FINDINGS: MAMMOGRAPHY: Digital diagnostic spot compression views of the left breast and 90 degree lateral view of the left breast demonstrate normal overlapping fibroglandular structures without persistent mass or asymmetry identified. ULTRASOUND: Sonographic images of the left breast including the retroareolar region, all 4 quadrants and the axilla do not demonstrate any solid masses. Cluster of cysts with a combined dimension of 0.8 cm is noted in the 1 o'clock axis 6 cm from the nipple. Additional cluster of cysts in the left 6 o'clock axis 1 cm from the nipple with a combined dimension of 0.8 cm. No architectural distortion or acoustical shadowing. No skin thickening or axillary adenopathy. IMPRESSION: No mammographic or sonographic evidence of malignancy. Annual bilateral mammographic screening is recommended unless otherwise clinically indicated. ASSESSMENT: BI-RADS Category 2: Benign
== END ==
PROVIDERS: PCP Nurse Practitioner Family; Visit Provider Nurse Practitioner Obstetrics & Gynecology
DX: R92.8 Other abnormal and inconclusive findings on diagnostic imaging of breast (principal)
CPT/HCPCS: 76641; 77061; 77065; G0279

== ENCOUNTER → 2023-04-29 23:19 | Outpatient (CLI) | payer BC, SELFPAY ==
[2023-04-29 17:14] LABS: Basophils # 0.1 K/mm3 (0-0.2); Basophils % 0.8 % (0.1-2.0); Eosinophils # 0.3 K/mm3 (0.0-0.4); Eosinophils % 5.2 % (0.1-12.0); Hematocrit 38.7 % (37.0-47.0); Hemoglobin 12.8 g/dL (12.2-16.2); Lymphocytes # 2.6 K/mm3 (0.7-4.5); Mean Corpuscular HGB Conc 33.1 g/dL (31.8-35.4); Mean Corpuscular Hemoglobin 30.5 pg (27.0-31.2); Mean Corpuscular Volume 91.9 fl (81-99); Mean Platelet Volume 7.1 fl (7.4-10.4); Monocytes # 0.5 K/mm3 (0.1-1.0); Monocytes % 8.3 % (1.7-9.3); Neutrophils # 2.3 K/mm3 (1.8-7.8); Neutrophils % 39.7 % (37.0-80.0); Platelet Count 409 K/mm3 (142-424); Red Blood Count 4.21 M/mm3 (4.20-5.40); Red Cell Distribution Width 13.5 % (11.5-17.5); White Blood Count 5.7 K/mm3 (4.8-10.8)
[2023-04-29 18:36] LABS: Alanine Aminotransferase 40 U/L (12-78); Albumin Level 4.5 g/dl (3.5-5.0); Albumin/Globulin Ratio 1.5 (1.1-1.8); Alkaline Phosphatase 136 U/L (38-126); Anion Gap 12.7 mEq/L (5-15); Aspartate Amino Transferase 44 U/L (14-36); Bilirubin,Total 0.4 mg/dl (0.2-1.3); Blood Urea Nitrogen 9 mg/dl (7-17); Calcium 9.3 mg/dl (8.4-10.2); Carbon Dioxide 25 mmol/L (22.0-30.0); Chloride 95 mmol/L (98-107); Estimated Glomerular Filt Rate 85 ml/min (>60); GFR (African American) 103 ML/MIN (>60); Globulin 3.1 g/dL (1.3-3.2); Glucose 71 mg/dl (74-100); Potassium 3.7 mmoL/L (3.5-5.1); Sodium 129 mmol/L (136-145); Total Protein,Serum 7.6 g/dl (6.3-8.2)
[2023-04-29 19:23] LABS: Vitamin B12 688 pg/mL (239-931)
[2023-04-29 20:45] LABS: Ferritin 30.6 ng/ml (11.1-264)
[2023-05-02 17:40] LABS: Intrinsic Factor Abs, Serum 1.1 AU/mL (0.0-1.1)
== END ==
PROVIDERS: PCP Nurse Practitioner Family; Visit Provider Nurse Practitioner Family
DX: D50.9 Iron deficiency anemia, unspecified (principal); E53.8 Deficiency of other specified B group vitamins; I10 Essential (primary) hypertension
CPT/HCPCS: 80053; 82607; 82728; 85025; 86340

== ENCOUNTER → 2023-07-21 14:57 | Outpatient (CLI) | payer BC, SELFPAY ==
--- NOTE | 2023-07-21 15:00 | XR_ITS ---
FINAL REPORT CLINICAL HISTORY: left shoulder injury , fall on jul 11, decreased ROM COMPARISON: None FINDINGS: LEFT SHOULDER 3 views of the left shoulder were obtained. There is no acute fracture or dislocation. Visualized joint spaces are normally aligned. Soft tissues are unremarkable. IMPRESSION: No acute bony abnormality. Reviewed, Interpreted and Dictated by Angus Daniel MD Transcribed by Minal Alfonso Authenticated and . [facility]
== END ==
LOC: RAD 14:58
PROVIDERS: PCP Nurse Practitioner Family; Visit Provider Nurse Practitioner Family
DX: M25.512 Pain in left shoulder (principal); M25.612 Stiffness of left shoulder, not elsewhere classified; S49.92XA Unspecified injury of left shoulder and upper arm, initial encounter
CPT/HCPCS: 73030

== ENCOUNTER → 2023-07-24 11:20 | Outpatient (CLI) | payer BC, SELFPAY ==
--- NOTE | 2023-07-24 11:21 | MR_ITS ---
FINAL REPORT CLINICAL HISTORY: left shoulder injury, decreased ROM. fall onto shoulder x's 2 weeks ago. COMPARISON: None FINDINGS: Multi planar MR imaging of the left shoulder was performed. There is complete disruption and proximal retraction of the supraspinatus tendon with retraction measuring 4 cm. There is superior subluxation of the humeral head relative to the bony glenoid. There is no abnormal fluid in the subacromial/subdeltoid bursa. The anterior and posterior glenoid claudine appear intact. There is medial subluxation of the biceps tendon. There is heterogeneous abnormal signal within the substance of the biceps tendon consistent with intrasubstance degeneration. There are moderate hypertrophic changes at the acromioclavicular joint. There is a moderate joint effusion. IMPRESSION: Complete disruption and proximal retraction supraspinatus tendon. Medial subluxation of the biceps tendon with intrasubstance degeneration. Reviewed, Interpreted and Dictated by Angus Daniel MD Transcribed by Minal Alfonso Authenticated and [facility]
== END ==
LOC: RAD 11:21
PROVIDERS: PCP Nurse Practitioner Family; Visit Provider Nurse Practitioner Family
DX: M25.512 Pain in left shoulder (principal); M25.612 Stiffness of left shoulder, not elsewhere classified; S49.92XA Unspecified injury of left shoulder and upper arm, initial encounter
CPT/HCPCS: 73221

== ENCOUNTER 2023-08-09 16:28 | Observation (INO) | payer BC, SELFPAY ==
[2023-08-09] VITALS (18 sets, daily range): BP systolic 130–168; BP diastolic 64–134; PULSE 71–87; RESP 18–21; TEMP 36.8–37.2; O2SAT 91–100; BMI 33.4; BMI 34.0; BMI 34.3
--- NOTE | 2023-08-09 17:58 | ED_ITS ---
Discharge Plan Disposition Patient Disposition: Still a Patient Prescriptions Prescriptions: No Action paroxetine HCl 40 mg tablet 40 mg PO DAILY Xolair 150 mg/mL syringe 150 mg SQ Q4W simvastatin 20 mg tablet 20 mg PO DAILY prednisone 5 mg tablet 2.5 mg PO DAILY methocarbamol 500 mg tablet 500 mg PO HS meclizine 12.5 mg tablet 12.5 mg PO TID PRN (Reason: .) epinephrine 0.3 mg/0.3 mL auto-injector 0.3 mg IM Q5-15M PRN (Reason: .) Rx Instructions: do not exceed 3 doses per episode hydroxychloroquine [Plaquenil] 200 mg tablet 200 mg PO BID lisinopril 20 mg tablet 20 mg PO BID fluticasone propionate 50 mcg/actuation spray,suspension 1 spray NS DAILY PRN (Reason: .) alprazolam 0.25 mg tablet 0.25 mg PO BID PRN (Reason: anxiety) Qty: 60 0RF albuterol sulfate 90 mcg/actuation HFA aerosol inhaler 2 puff inhalation Q4-6H PRN (Reason: shortness of breath or wheezing) 30 Days Qty: 8.5 1RF ibuprofen 800 mg tablet 800 mg PO Q8H Qty: 90 2RF tramadol 50 mg tablet 50 mg PO Q6H PRN (Reason: pain) Qty: 30 0RF estradiol 1 mg tablet 1 mg PO DAILY medroxyprogesterone 2.5 mg tablet 2.5 mg PO DAILY azithromycin [Zithromax Z-Praveen] 250 mg tablet See Rx Instructions PO .COMPLEX Qty: 6 0RF Rx Instructions: For 250 mg dose pack: take 500 mg today (day 1), then 250 mg for 4 days (days 2-5) PO fluconazole 150 mg tablet 150 mg PO DAILY PRN (Reason: .) carvedilol 12.5 mg tablet 12.5 mg PO BID Qty: 60 5RF promethazine-DM 6.25-15 mg/5 mL syrup 5 ml PO Q4-6H PRN (Reason: cough) Qty: 118 0RF aspirin 81 MG tablet,delayed release (DR/EC) 81 mg PO DAILY amitriptyline 50 MG tablet 50 mg PO DAILY esomeprazole magnesium 20 MG capsule,delayed release(DR/EC) 20 mg PO DAILY cetirizine 10 MG capsule 10 mg PO DAILY gabapentin 300 mg capsule 300 mg PO HS Patient Comments: hydroxyzine pamoate 25 mg capsule 25 mg PO DAILY triamterene-hydrochlorothiazid 37.5-25 mg tablet 1 tab PO DAILY Referrals Follow up/Referrals: Sofia Suarez APRN [Primary Care Provider] - See instructions Discharge ED Provider: Al Luis [facility] [place] HPI General Chief complaint: Chest Pain Stated complaint: cough, soa Mode of Arrival: Ambulatory Source of Information: Patient Limitations: No Limitations Time Seen by Provider: 08/09/23 17:59 Description of Symptoms (Recalled from Triage Doc. by RN): PATIENT C/O SOA AND COUGH X 1 WEEK HEENT Symptoms (Recalled from RN notes): No Resp Symptoms (Recalled from RN notes): Yes Skin Symptoms (Recalled from RN notes): No MS Symptoms (Recalled from RN notes): No Functional Status (Recalled from RN notes): WNL History of Present Illness Provider Complaint: Patient states that she has been having cough and SOA for about a week States that she seen her PCP and put on a Zpack States that she was doing ok until yesterday and her coughing and breathing got worse and she was coughing up some dark colored mucous States several times last night she had to go outside to breath the cold air to catch her breath States that she has been using her inhaler but hasnt helped much States that she came back in to get checked and after being placed in room she started feeling heavy in her chest like a weight was sitting on her and she had some bloody streaks in her mucous she was coughing up Related Data Home Medications Medication Instructions Recorded Confirmed amitriptyline 50 mg tablet 50 mg PO DAILY NECK INJURY 11/18/17 08/09/23 aspirin 81 mg tablet,delayed 81 mg PO DAILY Blood thinner 11/18/17 08/09/23 release cetirizine 10 mg capsule 10 mg PO DAILY ALLERGIES 11/18/17 08/09/23 esomeprazole magnesium 20 mg 20 mg PO DAILY GERD 11/18/17 08/09/23 capsule,delayed release gabapentin 300 mg capsule 300 mg PO HS Pain 02/19/22 08/09/23 epinephrine 0.3 mg/0.3 mL 0.3 mg IM Q5-15M PRN . 02/21/23 08/09/23 injection, auto-injector hydroxychloroquine 200 mg tablet 200 mg PO BID 02/21/23 08/09/23 (Plaquenil) hydroxyzine pamoate 25 mg capsule 25 mg PO DAILY ITCHING 02/21/23 08/09/23 lisinopril 20 mg tablet 20 mg PO BID 02/21/23 08/09/23 meclizine 12.5 mg tablet 12.5 mg PO TID PRN . 02/21/23 08/09/23 methocarbamol 500 mg tablet 500 mg PO HS 02/21/23 08/09/23 paroxetine HCl 40 mg tablet 40 mg PO DAILY 02/21/23 08/09/23 prednisone 5 mg tablet 2.5 mg PO DAILY 02/21/23 08/09/23 omalizumab 150 mg/mL subcutaneous 150 mg SQ Q4W 02/24/23 08/09/23 syringe (Xolair) simvastatin 20 mg tablet 20 mg PO DAILY 02/24/23 08/09/23 fluticasone propionate 50 1 spray intranasal DAILY PRN . 05/13/23 08/09/23 mcg/actuation nasal spray,suspension fluconazole 150 mg tablet 150 mg PO DAILY PRN . 06/30/23 08/09/23 triamterene 37.5 1 tab PO DAILY Fluid 06/30/23 08/09/23 mg-hydrochlorothiazide 25 mg tablet estradiol 1 mg tablet 1 mg PO DAILY 08/05/23 08/09/23 medroxyprogesterone 2.5 mg tablet 2.5 mg PO DAILY 08/05/23 08/09/23 Previous Rx's Medication Instructions Recorded carvedilol 12.5 mg tablet 12.5 mg PO BID #60 tabs 04/28/23 albuterol sulfate 90 mcg/actuation 2 puff inhalation Q4-6H PRN 05/13/23 aerosol inhaler shortness of breath or wheezing 30 days #8.5 grams alprazolam 0.25 mg tablet 0.25 mg PO BID PRN anxiety #60 tabs 05/13/23 ibuprofen 800 mg tablet 800 mg PO Q8H #90 tabs 07/21/23 tramadol 50 mg tablet 50 mg PO Q6H PRN pain #30 tabs 07/21/23 azithromycin 250 mg tablet See Rx Instructions PO .COMPLEX #6 08/05/23 (Zithromax Z-Praveen) tabs promethazine-DM 6.25 mg-15 mg/5 mL 5 ml PO Q4-6H PRN cough #118 mL 08/08/23 oral syrup Allergies Allergy/AdvReac Type Severity Reaction Status Date / Time latex Allergy rash/hives Verified 08/09/23 18:58 Worker's Comp Is this a Worker's Comp case?: No PFSH PFS Disclaimer: The information contained in this section may have been updated after the patient was seen, as this information can be updated by other users. Medical History Abnormal electrocardiogram [ECG] [EKG] Allergies delivery delivered Chest pain Family history of ischemic heart disease Fibromyalgia GERD (gastroesophageal reflux disease) Hormone replacement therapy (HRT) Left shoulder pain Sjogrens syndrome Surgical History History of delivery S/P ORIF (open reduction internal fixation) fracture Family History Mother Heart attack Social History Smoking Status: Never smoker alcohol intake: never substance use type: denies use current occupational status: retired Travel in the last 8 weeks: None household members: family housing: house ROS Obtained: Yes All systems reviewed & no additional complaints except as d ocumented and Yes Systems reviewed as appropriate & no additional complaints except as documented Constitutional Constitutional: Reports system reviewed and no additional complaints, except as documented and Reports as per HPI ENT Ears, Nose, Mouth, and Throat: Reports system reviewed and no additional complaints, except as documented and Reports as per HPI Cardiovascular Cardiovascular: Reports system reviewed and no additional complaints, except as documented and Reports as per HPI Respiratory Respiratory: Reports system reviewed and no additional complaints, except as documented, Reports as per HPI, Reports shortness of breath, Reports cough, Reports pain on inspiration, Reports pain with cough and Reports wheezing Comments: reports after arrival and in exam chair begin feeling like a weight was sitting on her chest and mucous had some streaks of blood in it Allergic/Immunologic Allergic/Immunologic: Reports wheezing Physical Exam General General appearance: alert and in no apparent distress Respiratory Respiratory exam: Present wheezes Cardiovascular Cardiovascular exam: Present regular rate, normal rhythm and normal heart sounds Neurological Exam Neurological exam: Present alert and oriented X3 Medical Decision Making Geremias Inquiry Pt receiving controlled substance: No Geremias was queried for this patient: No Vital Signs: 08/09/23 17:40 Temperature 99.0 F Temperature Source Oral Pulse Rate [Left Brachial] 79 Respiratory Rate 21 Blood Pressure [Left Arm] 138/76 Blood Pressure Mean [Left Arm] 96 Blood Pressure Source [Left Arm] Automatic Cuff Blood Pressure Position [Left Arm] Sitting 02 Sat by Pulse Oximetry 94 L Oxygen Delivery Method Room Air Lab Data 08/09/23 18:20 08/09/23 18:20 Medical Decision Narrative: Patient states that she has been on Zpack from her PCP for Bronchitis and she has been getting worse since yesterday during exam patient placed hands on her chest and states feels like a weight is sitting on chest and it just started after arrival and being placed in room patient states that she has been coughing up thick brownish colored mucous and had some blood in it after arrival discussed with patient and due to heaviness in chest and failed outpatient treatment recommended transfer to the ED for further work up and evaluation and she agreed Called ED and patient was moved to room 5
--- NOTE | 2023-08-09 18:10 | PC.NURSE ---
PATIENT SENT TO ER PER Carmelo PITT APRN FOR FURTHER EVALUATION. REPORT GIVEN TO DR. JANG BY Carmelo PITT APRN. PATIENT TRANSPORTED TO ER VIA WHEELCHAIR WITH [facility] STAFF ASSIST
--- NOTE | 2023-08-09 18:15 | ECG_ITS ---
APPROVED REPORT Exam: Resting ECG HR:74 bpm ECG Measurements Heart Rate 74 AXES FL 152 P 60 QRSd 102 QRS 18 QT 404 T 67 QTc 432 Conclusion SINUS RHYTHM INDETERMINATE AXIS LOW QRS VOLTAGE IN PRECORDIAL LEADS [QRS DEFLECTION < 1.0 mV IN CHEST LEADS] BORDERLINE ECG UNCONFIRMED REPORT Electronically signed by : Umesh Walter MD 08/10/2023 09:02:57
[2023-08-09] MEDS: IPRATROPIUM/ALBUTEROL 3 ML NEB IH ×3 (18:30→21:07)
--- NOTE | 2023-08-09 18:40 | XR_ITS ---
PROCEDURE INFORMATION: Exam: XR Chest Exam date and time: 08/09/2023 6:50 PM Age: 63 years old Clinical indication: Shortness of breath; Additional info: Productive cough, cp SOB TECHNIQUE: Imaging protocol: Radiologic exam of the chest. Views: 1 view. Total images: 1 COMPARISON: CR XR CHEST 2V 02/13/2023 12:51 PM FINDINGS: Lungs: Calcified right upper lobe granuloma. No acute infiltrate, airspace consolidation or vascular congestion. No interstitial edema. Pleural spaces: Unremarkable. No pleural effusion. No pneumothorax. Heart/Mediastinum: Unremarkable. No cardiomegaly. No mediastinal widening or hilar enlargement. Bones/joints: Unremarkable. Soft tissues: Breast attenuation artifact. IMPRESSION: No radiographically acute cardiopulmonary process.
--- NOTE | 2023-08-09 18:50 | PC.NURSE ---
pt aware of need for urine sample.
--- NOTE | 2023-08-09 18:50 | PC.NURSE ---
portable xray at bedside
[2023-08-09 18:51] LABS: Basophils # 0.1 K/mm3 (0-0.2); Basophils % 0.9 % (0.1-2.0); Eosinophils # 0.8 K/mm3 (0.0-0.4); Hemoglobin 13.2 g/dL (12.2-16.2); Lymphocytes # 2.1 K/mm3 (0.7-4.5); Lymphocytes % 35.8 % (10-50); Mean Corpuscular HGB Conc 35.6 g/dL (31.8-35.4); Mean Corpuscular Hemoglobin 32.6 pg (27.0-31.2); Mean Corpuscular Volume 91.7 fl (81-99); Mean Platelet Volume 8.7 fl (7.4-10.4); Monocytes # 0.5 K/mm3 (0.1-1.0); Monocytes % 8.3 % (1.7-9.3); Neutrophils # 2.4 K/mm3 (1.8-7.8); Neutrophils % 41.1 % (37.0-80.0); Platelet Count 284 K/mm3 (142-424); Red Blood Count 4.03 M/mm3 (4.20-5.40); Red Cell Distribution Width 13.3 % (11.5-17.5); White Blood Count 5.8 K/mm3 (4.8-10.8)
[2023-08-09 18:53] LABS: Chloride 92 mmol/L (98-107)
[2023-08-09 18:54] LABS: Coronavirus 19, PCR Not Detected (NotDetected); Influenza A, PCR Not Detected (NotDetected); Influenza B, PCR Not Detected (NotDetected)
[2023-08-09 18:54] LABS: Potassium 4.5 mmoL/L (3.5-5.1); Sodium 125 mmol/L (136-145)
[2023-08-09 18:56] LABS: Alanine Aminotransferase 44 U/L (12-78); Aspartate Amino Transferase 83 U/L (14-36); Blood Urea Nitrogen 7 mg/dl (7-17); Creatinine Clearance Estimated 82 mL/min (50-200); Estimated Glomerular Filt Rate 85 ml/min (>60); GFR (African American) 102 ML/MIN (>60)
[2023-08-09 18:57] LABS: Albumin Level 4.3 g/dl (3.5-5.0); Albumin/Globulin Ratio 1.5 (1.1-1.8); Alkaline Phosphatase 109 U/L (38-126); Anion Gap 12.5 mEq/L (5-15); Bilirubin,Total 1.1 mg/dl (0.2-1.3); Calcium 8.6 mg/dl (8.4-10.2); Carbon Dioxide 25 mmol/L (22.0-30.0); Globulin 2.9 g/dL (1.3-3.2); Glucose 93 mg/dl (74-100); Total Protein,Serum 7.2 g/dl (6.3-8.2)
[2023-08-09 19:09] LABS: Troponin I 0.02 ng/ml (0.00-0.034)
[2023-08-09 19:16] LABS: Microscopic, Urine URINE MICROSCOPIC (MICROSCOPIC)
[2023-08-09 19:37] LABS: Appearance,Urine CLEAR (Clear); Bilirubin,Urine Negative (Negative); Blood, Urine Negative (Negative); Color,Urine YELLOW (Yellow); Glucose,Urine (UA) Negative (Negative); Ketones,Urine Negative (Negative); Leukocyte Esterase,Urine Negative (Negative); Nitrate,Urine Negative (Negative); Protein,Urine Negative (Negative); Urobilinogen,Urine 0.2 EU/dl (0.2)
--- NOTE | 2023-08-09 19:46 | HMH.EDGENADL ---
Discharge Plan Disposition Patient Disposition: Still a Patient Clinical Impressions Clinical Impression: Acute dyspnea PNA (pneumonia) Qualifiers: Pneumonia type: due to unspecified organism Laterality: bilateral Lung location: unspecified part of lung Qualified Code(s): J18.9 - Pneumonia, unspecified organism Discharge ED Provider: Al Luis General Adult HPI General Chief complaint: Chest Pain Stated complaint: cough, soa Time Seen by Provider: 08/09/23 17:59 Mode of Arrival: Ambulatory Source of Information: Patient Limitations: No Limitations Description of Symptoms (Recalled from ER Triage Doc. by RN): pt states she has had a productive cough since last friday, saw her pcp on friday where she was dx with bronchitis, reports shortness of breath and substernal chest pain that started today, reports green sputum History of Present Illness HPI narrative: 63-year-old female with history of Sjogren syndrome on chronic steroids and hydroxychloroquine, hypertension presents with worsening cough shortness of breath and chest pain. She was recently seen by PCP and diagnosed with bronchitis and prescribed a Z-Praveen and cough medications. She reports symptoms have been worsening, cough is productive of green sputum, sometimes flecked with blood. She reports that she is wheezy which is not normal for her. Related Data Home Medications Medication Instructions Recorded Confirmed amitriptyline 50 mg tablet 50 mg PO DAILY NECK INJURY 11/18/17 08/09/23 aspirin 81 mg tablet,delayed 81 mg PO DAILY Blood thinner 11/18/17 08/09/23 release cetirizine 10 mg capsule 10 mg PO DAILY ALLERGIES 11/18/17 08/09/23 esomeprazole magnesium 20 mg 20 mg PO DAILY GERD 11/18/17 08/09/23 capsule,delayed release gabapentin 300 mg capsule 300 mg PO HS Pain 02/19/22 08/09/23 epinephrine 0.3 mg/0.3 mL 0.3 mg IM Q5-15M PRN . 02/21/23 08/09/23 injection, auto-injector hydroxychloroquine 200 mg tablet 200 mg PO BID 02/21/23 08/09/23 (Plaquenil) hydroxyzine pamoate 25 mg capsule 25 mg PO DAILY ITCHING 02/21/23 08/09/23 lisinopril 20 mg tablet 20 mg PO BID 02/21/23 08/09/23 meclizine 12.5 mg tablet 12.5 mg PO TID PRN . 02/21/23 08/09/23 methocarbamol 500 mg tablet 500 mg PO HS 02/21/23 08/09/23 paroxetine HCl 40 mg tablet 40 mg PO DAILY 02/21/23 08/09/23 prednisone 5 mg tablet 2.5 mg PO DAILY 02/21/23 08/09/23 omalizumab 150 mg/mL subcutaneous 150 mg SQ Q4W 02/24/23 08/09/23 syringe (Xolair) simvastatin 20 mg tablet 20 mg PO DAILY 02/24/23 08/09/23 fluticasone propionate 50 1 spray intranasal DAILY PRN . 05/13/23 08/09/23 mcg/actuation nasal spray,suspension fluconazole 150 mg tablet 150 mg PO DAILY PRN . 06/30/23 08/09/23 triamterene 37.5 1 tab PO DAILY Fluid 06/30/23 08/09/23 mg-hydrochlorothiazide 25 mg tablet estradiol 1 mg tablet 1 mg PO DAILY 08/05/23 08/09/23 medroxyprogesterone 2.5 mg tablet 2.5 mg PO DAILY 08/05/23 08/09/23 Previous Rx's Medication Instructions Recorded carvedilol 12.5 mg tablet 12.5 mg PO BID #60 tabs 04/28/23 albuterol sulfate 90 mcg/actuation 2 puff inhalation Q4-6H PRN 05/13/23 aerosol inhaler shortness of breath or wheezing 30 days #8.5 grams alprazolam 0.25 mg tablet 0.25 mg PO BID PRN anxiety #60 tabs 05/13/23 ibuprofen 800 mg tablet 800 mg PO Q8H #90 tabs 07/21/23 tramadol 50 mg tablet 50 mg PO Q6H PRN pain #30 tabs 07/21/23 azithromycin 250 mg tablet See Rx Instructions PO .COMPLEX #6 08/05/23 (Zithromax Z-Praveen) tabs promethazine-DM 6.25 mg-15 mg/5 mL 5 ml PO Q4-6H PRN cough #118 mL 08/08/23 oral syrup Allergies Allergy/AdvReac Type Severity Reaction Status Date / Time latex Allergy rash/hives [facility]23 [facility] The information contained in this section may have been updated after the patient was seen, as this information can be updated by other users. Medical History (Updated 08/10/23 @ 01:30 by Al Luis MD) Abnormal electrocardiogram [ECG] [EKG] Allergies delivery delivered Chest pain Family history of ischemic heart disease Fibromyalgia GERD (gastroesophageal reflux disease) Hormone replacement therapy (HRT) Left shoulder pain Sjogrens syndrome Surgical History History of delivery S/P ORIF (open reduction internal fixation) fracture Family History Mother Heart attack Social History (Updated 08/10/23 @ 00:12 by Gina Burch RN) Smoking Status: Never smoker alcohol intake: never substance use type: denies use current occupational status: retired Travel in the last 8 weeks: None household members: family housing: house ROS Obtained: Yes All systems reviewed & no additional complaints except as documented Physical Exam General General appearance: alert and in no apparent distress Head Head exam: atraumatic and normocephalic Eye Eye exam: Present normal appearance, PERRL and EOMI ENT ENT exam: Present normal oropharynx and normal external ear exam Neck Neck exam: Present normal inspection and full ROM Chest Chest inspection: Present normal inspection and symmetric chest wall rise; Absent tenderness Respiratory Respiratory exam: Present wheezes, accessory muscle use (Mild) and prolonged expiratory phase Cardiovascular Cardiovascular exam: Present regular rate and normal rhythm Abdominal Exam Abdominal exam: Present soft; Absent distention, tenderness or guarding Extremities Exam Extremities exam: Present normal inspection; Absent edema or joint swelling Back Exam Back exam: Present normal inspection; Absent tenderness Neurological Exam Neurological exam: Present alert and oriented X3; Absent motor sensory deficit Psychiatric Psychiatric exam: Present normal affect and normal mood Skin Skin exam: Present warm, dry and normal color Lymphatic Lymphatic Findings: no adenopathy Medical Decision Making Medical Records Medical records reviewed: Yes I reviewed the patient's medical records. Geremias Inquiry Pt receiving controlled substance: No Geremias was queried for this patient: No Vital Signs: 08/09/23 17:40 08/09/23 18:36 08/09/23 18:23 Temperature 99.0 F 98.4 F Temperature Source Oral Oral Pulse Rate 79 Pulse Rate [Left Brachial] 79 87 Respiratory Rate 21 20 Blood Pressure 167/83 H Blood Pressure [Left Arm] 138/76 167/83 H Blood Pressure Mean [Left Arm] 96 111 Blood Pressure Source Blood Pressure Source [Left Arm] Automatic Cuff Automatic Cuff Blood Pressure Position Blood Pressure Position [Left Arm] Sitting Sitting 02 Sat by Pulse Oximetry 94 L 96 93 L Oxygen Delivery Method Room Air Room Air Oxygen Flow Rate (LPM) 08/09/23 19:01 08/09/23 19:29 08/09/23 20:01 Temperature 98.3 F Temperature Source Oral Pulse Rate 72 71 73 Pulse Rate [Left Brachial] Respiratory Rate 18 18 Blood Pressure 154/67 H 135/88 130/68 Blood Pressure [Left Arm] Blood Pressure Mean [Left Arm] Blood Pressure Source Blood Pressure Source [Left Arm] Blood Pressure Position Blood Pressure Position [Left Arm] 02 Sat by Pulse Oximetry 95 95 94 L Oxygen Delivery Method Room Air Oxygen Flow Rate (LPM) 08/09/23 20:30 08/09/23 21:11 08/09/23 18:30 Temperature Temperature Source Pulse Rate 72 73 77 Pulse Rate [Left Brachial] Respiratory Rate 20 Blood Pressure 154/71 H Blood Pressure [Left Arm] Blood Pressure Mean [Left Arm] Blood Pressure Source Blood Pressure Source [Left Arm] Blood Pressure Position Blood Pressure Position [Left Arm] 02 Sat by Pulse Oximetry 95 Oxygen Delivery Method Room Air Oxygen Flow Rate (LPM) 08/09/23 18:50 08/09/23 21:00 08/09/23 21:30 Temperature Temperature Source Pulse Rate 77 74 77 Pulse Rate [Left Brachial] Respiratory Rate Blood Pressure 168/134 H 153/134 H Blood Pressure [Left Arm] Blood Pressure Mean [Left Arm] Blood Pressure Source Blood Pressure Source [Left Arm] Blood Pressure Position Blood Pressure Position [Left Arm] 02 Sat by Pulse Oximetry 99 95 Oxygen Delivery Method Room Air Room Air Oxygen Flow Rate (LPM) 08/09/23 22:00 08/09/23 22:31 08/09/23 22:45 Temperature Temperature Source Pulse Rate 75 78 72 Pulse Rate [Left Brachial] Respiratory Rate Blood Pressure 135/64 138/80 Blood Pressure [Left Arm] Blood Pressure Mean [Left Arm] Blood Pressure Source Blood Pressure Source [Left Arm] Blood Pressure Position Blood Pressure Position [Left Arm] 02 Sat by Pulse Oximetry 97 95 91 L Oxygen Delivery Method Room Air Oxygen Flow Rate (LPM) 08/09/23 23:04 08/09/23 23:00 Temperature 98.5 F Temperature Source Oral Pulse Rate 74 Pulse Rate [Left Brachial] Respiratory Rate 20 Blood Pressure 161/72 H Blood Pressure [Left Arm] Blood Pressure Mean [Left Arm] Blood Pressure Source Automatic Cuff Blood Pressure Source [Left Arm] Blood Pressure Position Sitting Blood Pressure Position [Left Arm] 02 Sat by Pulse Oximetry Oxygen Delivery Method Room Air Nasal Cannula Oxygen Flow Rate (LPM) 2 Lab Data Lab results reviewed: Yes I reviewed the patient's lab results. Lab Results 08/09/23 18:20: WBC 5.8, RBC 4.03 L, Hgb 13.2, Hct 37.0, MCV 91.7, MCH 32.6 H, MCHC 35.6 H, RDW 13.3, Plt Count 284, MPV 8.7, Neut % (Auto) 41.1, Lymph % (Auto) 35.8, Wright % (Auto) 8.3, Eos % (Auto) 14.0 H, Baso % (Auto) 0.9, Neut # (Auto) 2.4, Lymph # (Auto) 2.1, Wright # (Auto) 0.5, Eos # (Auto) 0.8 H, Baso # (Auto) 0.1, Sodium 125 L, Potassium 4.5, Chloride 92 L, Carbon Dioxide 25, Anion Gap 12.5, BUN 7, Creatinine 0.70, Estimated Creat Clear 82, Estimated GFR 85, Est GFR ( Amer) 102, Glucose 93, Calcium 8.6, Total Bilirubin 1.1, AST 83 H, ALT 44, Alkaline Phosphatase 109, Troponin I 0.02, Total Protein 7.2, Albumin 4.3, Globulin 2.9, Albumin/Globulin Ratio 1.5 08/09/23 18:47: SARS-CoV-2 (PCR) Not detected, Influenza A Untype (PCR) Not detected, Influenza Type B (PCR) Not detected 08/09/23 19:13: Urine Color Yellow, Urine Appearance Clear, Urine pH 7.0, Ur Specific [place] 1.020, Urine Protein Negative, Urine Glucose (UA) Negative, Urine Ketones Negative, Urine Blood Negative, Urine Nitrate Negative, Urine Bilirubin Negative, Urine Urobilinogen 0.2, Ur Leukocyte Esterase Negative, Urine RBC None, Urine WBC Occasional, Ur Squamous Epith Cells 3-5, Urine Bacteria Trace 08/09/23 21:42: Troponin I < 0.01 08/09/23 18:20 08/09/23 18:20 Orders (Tests/Meds): ED MEDICATIONS Generic Name Dose Route Start Last Admin Trade Name Freq PRN Reason Stop Dose Admin Acetaminophen 650 mg 08/09/23 22:37 Acetaminophen 325mg Tab PO 09/08/23 22:36 Q4HP PRN Fever or Mild Pain (1-3) Al Hydrox/Mg Hydrox/Simethicone 30 ml 08/09/23 22:37 Aluminum/Magnesium/Simethicone 30ml Udc PO 09/08/23 22:36 QIDP PRN Dyspepsia Enoxaparin Sodium 40 mg 08/10/23 09:00 Enoxaparin 40mg/0.4ml Syringe SQ 09/09/23 08:59 DAILY XIOMY Sodium Chloride 1,000 mls @ 50 mls/hr 08/09/23 22:45 08/09/23 23:39 Sod Chlor 0.9% 1000ml Bag IV 09/08/23 22:44 50 mls/hr .Q20H XIOMY Administration Levofloxacin/Dextrose 750 mg in 150 mls @ 100 mls/hr 08/09/23 22:45 08/09/23 23:39 Levofloxacin 750mg/150ml Premix IV 08/19/23 22:44 100 mls/hr Q24H XIOMY Administration Morphine Sulfate 2 mg 08/09/23 22:37 Morphine 2mg/Ml Syringe IV 09/08/23 22:36 Q2HP PRN Severe Pain (7-10) Nicotine 21 mg 08/09/23 22:37 Nicotine 21mg/24hr Patch TD 09/08/23 22:36 DAILYP PRN Nicotine Cravings Ondansetron HCl 4 mg 08/09/23 22:37 Ondansetron 4mg/2ml Vial IV 09/08/23 22:36 Q8HP PRN Nausea Pantoprazole Sodium 40 mg 08/10/23 09:00 Pantoprazole 40mg Tablet PO 09/09/23 08:59 DAILY XIOMY Sodium Chloride 3 ml 08/09/23 22:37 Sodium Chloride 3% 15ml Neb IH 09/08/23 22:36 ONCE PRN INDUCE SPUTUM COLLECTION Discontinued Medications Generic Name Dose Route Start Last Admin Trade Name Dl PRN Reason Stop Dose Admin Acetaminophen 1,000 mg 08/09/23 22:18 08/09/23 22:49 Acetaminophen 500mg Tab PO 08/09/23 22:19 1,000 mg ONCE ONE Administration Albuterol/Ipratropium 3 ml 08/09/23 18:40 08/09/23 18:44 Ipratropium/Albuterol 3 Ml [facility] 08/09/23 18:41 3 ml ONCE ONE Administration Albuterol/Ipratropium 3 ml 08/09/23 18:30 08/09/23 18:30 Ipratropium/Albuterol 3 Ml Critical access hospital 08/09/23 18:31 3 ml ONCE ONE Administration Albuterol/Ipratropium 3 ml 08/09/23 20:52 08/09/23 21:07 Ipratropium/Albuterol 3 Ml Critical [facility] hospital 08/09/23 20:53 3 ml ONCE ONE Administration Ceftriaxone Sodium 1 gm/ 50 mls @ 100 mls/hr 08/09/23 22:18 08/09/23 22:46 Sodium Chloride IV 08/09/23 22:47 100 mls/hr ONCE ONE Administration Azithromycin 500 mg/ Sodium 250 mls @ 250 mls/hr 08/09/23 22:22 08/09/23 23:02 Chloride IV 08/09/23 22:23 250 mls/hr ONCE ONE Administration Methylprednisolone Sodium Succinate 125 mg 08/09/23 22:18 08/09/23 22:45 Methylprednisolone Sod Succ 125mg Vial IV 08/09/23 22:19 125 mg ONCE ONE Administration ORDERS Category Date Time Status Cardiology Consult [Consult to Cardiology] [CONS] Cons 08/09/23 22:41 Active Routine CXR --portable [XR chest portable] Stat Exams 08/09/23 18:40 Completed CBC w/Auto Diff [Complete Blood Count Auto Diff] Stat Lab 08/09/23 18:20 Completed CMP [Comprehensive Metabolic Panel] Stat Lab 08/09/23 18:20 Completed Complete Blood Count Auto Diff AMLAB Lab 08/10/23 06:00 Ordered Comprehensive Metabolic Panel AMLAB Lab 08/10/23 06:00 Ordered Magnesium AMLAB Lab 08/10/23 06:00 Ordered Rapid PCR Covid and Flu A/B Stat Lab 08/09/23 18:47 Completed Troponin I Q3H Lab 08/09/23 18:20 Completed Troponin I Q3H Lab 08/09/23 21:42 Completed UA [Urinalysis and Microscopic] Stat Lab 08/09/23 19:13 Completed Blood Culture Stat Micro 08/09/23 18:47 Received Sputum Culture & Gram Stain Stat Micro 08/09/23 22:37 Ordered VBG [Venous Blood Gas] Stat RT 08/09/23 18:45 Ordered HEART Score History (anamnesis): Slightly suspicious ECG: Normal Age: 45-65 years Risk factors: 1-2 risk factors Troponin: </= normal limit HEART Score: 2 Medical Decision Narrative: 63-year-old female, history of Sjogren's syndrome with chronic hydroxychloroquine and steroid use presents with worsening productive cough and shortness of breath despite treatment with azithromycin from PCP for bronchitis, as well as acute chest pain. History was obtained via conversation with patient, chart review. On arrival, patient is afebrile, hemodynamically stable, satting low 90s on room air, profound wheezing noted bilaterally. Differential includes but is not limited to COVID, flu, pneumonia, ACS. Patient was given DuoNeb's x 2 for symptomatic management and correction of underlying abnormalities. Workup initiated including CBC CMP COVID flu swab blood cultures UA chest x-ray EKG troponin. 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 D-dimer was considered but deemed unnecessary due to presentation consistent with infectious process. On re-evaluation, patient reports worsening shortness of breath, on exam is now more wheezy again. Reports she is unable to lay down due to dyspnea given additional DuoNeb with improvement. Laboratory workup independently interpreted by me and significant for hyponatremia 125, this is down from prior at 129 127. Mild eosinophilia noted. Mildly elevated AST. Initial troponin negative. Repeat troponin negative. Imaging independently interpreted by me and significant for no focal opacity. See radiology read for full review of final results. EKG independently interpreted by me and significant for sinus rhythm, rate of 74, no concerning ST changes, no arrhythmia. Given patient history, exam and workup, patient's presentation most likely represents acute pneumonia in the setting of immunocompromise (on hydroxychloroquine and chronic steroids for Sjogren's). Patient is requiring frequent nebulizer treatments and does not have this capability at home. Patient was initiated on ceftriaxone and azithromycin IV for treatment of community acquired pneumonia and was given 125 of Solu-Medrol. Interact discussion was had with hospital on-call for admission. Procedures Risk/Benefits of Procedure(s) Were Explained: Yes Critical Care Critical Care Time Critical Care Time: No
[2023-08-09 20:27] LABS: Bacteria,Urine Trace /lpf; WBC,Urine Occasional #/hpf (0-3)
[2023-08-09 22:15] LABS: Troponin I < 0.01 ng/ml (0.00-0.034)
--- NOTE | 2023-08-09 22:15 | PC.NURSE ---
Dr. Luis in room
--- NOTE | 2023-08-09 22:35 | PC.NURSE ---
OBSERVATION ADMISSION TO 200 WITH DX OF PNA TO SERVICE OF THE HOSPITALIST.
--- NOTE | 2023-08-09 22:39 | EXP.HP ---
History of Present Illness *Admission Date: 08/09/23 *Reason for visit:: cough *History of present illness: This is a 63-year-old female with PMHx of Sjogren syndrome on chronic steroids and hydroxychloroquine, hypertension presents with worsening cough shortness of breath and chest heaviness. She was recently seen by PCP and diagnosed with bronchitis and prescribed a Z-Praveen and cough medications. She reported cough have become worse and constant and now is productive of green sputum, sometimes flecked with blood. She reports that she is wheezy which is not normal for her. Admitted for further treatment and management. [facility] Disclaimer: The information contained in this section may have been updated after the patient was seen, as this information can be updated by other users. Medical History (Updated 08/10/23 @ 05:54 by Rolo Cortes APRN) Abnormal electrocardiogram [ECG] [EKG] Allergies delivery delivered Chest pain Family history of ischemic heart disease Fibromyalgia GERD (gastroesophageal reflux disease) Hormone replacement therapy (HRT) Left shoulder pain Sjogrens syndrome Surgical History History of delivery S/P ORIF (open reduction internal fixation) fracture Family History Mother Heart attack Social History (Updated 08/10/23 @ 00:12 by Gina Burch RN) Smoking Status: Never smoker alcohol intake: never substance use type: denies use current occupational status: retired Travel in the last 8 weeks: None household members: family housing: house Review of Systems Review of Systems Review of systems:: pertinent systems reviewed and negative unless documented below Meds Home Medications and Allergies Home Medications Medication Instructions Recorded Confirmed Type amitriptyline 50 mg tablet 50 mg PO HS Pain 11/18/17 08/10/23 History aspirin 81 mg tablet,delayed 81 mg PO DAILY Heart Health 11/18/17 08/09/23 History release cetirizine 10 mg capsule 10 mg PO DAILY Allergy Symptoms 11/18/17 08/09/23 History esomeprazole magnesium 20 mg 20 mg PO DAILY Acid Reflux 11/18/17 08/09/23 History capsule,delayed release gabapentin 300 mg capsule 300 mg PO HS Pain 02/19/22 08/09/23 History epinephrine 0.3 mg/0.3 mL 0.3 mg IM Q5-15M PRN Allergic 02/21/23 08/09/23 History injection, auto-injector Reaction hydroxychloroquine 200 mg tablet 200 mg PO BID 02/21/23 08/09/23 History (Plaquenil) hydroxyzine pamoate 25 mg capsule 25 mg PO DAILY ITCHING 02/21/23 08/09/23 History lisinopril 20 mg tablet 20 mg PO BID 02/21/23 08/09/23 History methocarbamol 500 mg tablet 500 mg PO HS Pain 02/21/23 08/09/23 History paroxetine HCl 40 mg tablet 40 mg PO DAILY 02/21/23 08/09/23 History prednisone 5 mg tablet 2.5 mg PO DAILY 02/21/23 08/09/23 History omalizumab 150 mg/mL subcutaneous 150 mg SQ Q4W 02/24/23 08/09/23 History syringe (Xolair) simvastatin 20 mg tablet 20 mg PO HS Cholesterol 02/24/23 08/10/23 History carvedilol 12.5 mg tablet 12.5 mg PO BID #60 tabs 04/28/23 08/09/23 Rx albuterol sulfate 90 mcg/actuation 2 puff inhalation Q4-6H PRN 05/13/23 08/09/23 Rx aerosol inhaler shortness of breath or wheezing 30 days #8.5 grams alprazolam 0.25 mg tablet 0.25 mg PO BID PRN anxiety #60 tabs 05/13/23 08/09/23 Rx fluticasone propionate 50 1 spray intranasal DAILYP PRN 05/13/23 08/10/23 History mcg/actuation nasal Allergy Symptoms spray,suspension triamterene 37.5 1 tab PO DAILY Fluid 06/30/23 08/09/23 History mg-hydrochlorothiazide 25 mg tablet estradiol 1 mg tablet 1 mg PO DAILY 08/05/23 08/09/23 History medroxyprogesterone 2.5 mg tablet 2.5 mg PO DAILY 08/05/23 08/09/23 History ibuprofen 800 mg tablet 800 mg PO Q8HP PRN Mild Pain 08/10/23 08/10/23 History (Scale Score 1-4) promethazine-DM 6.25 mg-15 mg/5 mL 5 ml PO Q4HP PRN cough 08/10/23 08/10/23 History oral syrup tramadol 50 mg tablet 50 mg PO Q6HP PRN Moderate Pain 08/10/23 08/10/23 History (Scale Score 5-6) New Prescriptions to Start Prescriptions: Allergies Allergy/AdvReac Type Severity Reaction Status Date / Time latex Allergy rash/hives Verified 08/09/23 18:58 Exam Data for Last 24 hours Vital signs and Labs for Last 24 Hours: Temp Pulse Resp BP Pulse Ox O2 Del Method 98.3 F 75 20 135/64 97 Room Air 08/09/23 19:01 08/09/23 22:00 08/09/23 20:30 08/09/23 22:00 08/09/23 22:00 08/09/23 22:00 Laboratory Results - last 24 hr 08/09/23 18:20: WBC 5.8, RBC 4.03 L, Hgb 13.2, Hct 37.0, MCV 91.7, MCH 32.6 H, MCHC 35.6 H, RDW 13.3, Plt Count 284, MPV 8.7, Neut % (Auto) 41.1, Lymph % (Auto) 35.8, [place] % (Auto) 8.3, Eos % (Auto) 14.0 H, Baso % (Auto) 0.9, Neut # (Auto) 2.4, Lymph # (Auto) 2.1, [place] # (Auto) 0.5, Eos # (Auto) 0.8 H, Baso # (Auto) 0.1, Sodium 125 L, Potassium 4.5, Chloride 92 L, Carbon Dioxide 25, Anion Gap 12.5, BUN 7, Creatinine 0.70, Estimated Creat Clear 82, Estimated GFR 85, Est GFR ( Amer) 102, Glucose 93, Calcium 8.6, Total Bilirubin 1.1, AST 83 H, ALT 44, Alkaline Phosphatase 109, Troponin I 0.02, Total Protein 7.2, Albumin 4.3, Globulin 2.9, Albumin/Globulin Ratio 1.5 08/09/23 18:47: SARS-CoV-2 (PCR) Not detected, Influenza A Untype (PCR) Not detected, Influenza Type B (PCR) Not detected 08/09/23 19:13: Urine Color Yellow, Urine Appearance Clear, Urine pH 7.0, Ur Specific [place] 1.020, Urine Protein Negative, Urine Glucose (UA) Negative, Urine Ketones Negative, Urine Blood Negative, Urine Nitrate Negative, Urine Bilirubin Negative, Urine Urobilinogen 0.2, Ur Leukocyte Esterase Negative, Urine RBC None, Urine WBC Occasional, Ur Squamous Epith Cells 3-5, Urine Bacteria Trace 08/09/23 21:42: Troponin I < 0.01 I & O for Last 24 hours: Intake & Output 08/06/23 08/07/23 08/08/23 08/09/23 23:59 23:59 23:59 23:59 Weight 89.811 kg Constitutional Constitutional: moderate distress and cooperative *Routine HEENT Exam Head: Present normocephalic and atraumatic Eye: Present EOMI, PERRL and normal accommodation ENT: Present mucous membranes moist *Routine Neck Exam Neck: Present supple, full ROM and trachea midline *Routine Respiratory Exam Respiratory: Present wheezes, diminished air movement, normal respiratory effort, able to speak in complete sentences and symmetric chest movement; Absent respiratory distress *Routine Cardiovascular Exam Cardiovascular: Present RRR, Normal S1 and Normal S2 *Routine Abdominal Exam Abdominal: Present soft and normoactive bowel sounds; Absent organomegaly *Routine Rectal Exam Rectal:: deferred *Routine Genitalia Exam Genitalia:: deferred *Routine Extremities Exam Extremities: Present full ROM and pulses intact; Absent cyanosis, clubbing or edema *Routine Skin Exam Skin: Present intact, dry and warm *Routine Neurological Exam Neurological: Present alert, oriented X3, normal reflexes, moving all extremities and normal speech Routine Psychiatric Exam Psychiatric: Present normal thought process, cooperative, good judgment and anxious H&P: Result Imaging and Cardiology EKG: Status: image reviewed by me and Preliminary report Chest x-ray: Status: image reviewed by me, Preliminary report and final report Assessment and Plan *Assessment and plan (1) Acute dyspnea: Status: Acute Category: Medical Code(s): R06.00 - Dyspnea, unspecified (2) Bronchitis: Status: Acute Category: Medical Code(s): J40 - Bronchitis, not specified as acute or chronic (3) Hyponatremia: Status: Acute Category: Medical Code(s): E87.1 - Hypo-osmolality and hyponatremia (4) Anxiety: Status: Acute Category: Medical Code(s): F41.9 - Anxiety disorder, unspecified (5) HTN (hypertension): Status: Acute Qualifiers: Hypertension type: primary hypertension Qualified Code(s): I10 - Essential (primary) hypertension Category: Medical Code(s): I10 - Essential (primary) hypertension (6) Sjogrens syndrome: Status: Acute Qualifiers: Sjogren organ or system involvement: unspecified organ involvement Qualified Code(s): M35.00 - Sjogren syndrome, unspecified Category: Medical Code(s): M35.00 - Sjogren syndrome, unspecified Plan 63-year-old female with PMHx of Sjogren syndrome on chronic steroids and hydroxychloroquine, hypertension presents with worsening cough shortness of breath and chest heaviness. on arrival patient work up included CXR that ruled out any focal opacity. Lab work was grossly unremarkable. Only positive for hyponatremia, which is chronic on this patient and asymptomatic. Because of the high risk of decompensation and long-term immunosuppression state, after discussion with the ER, we would agree for admission. Plan as follow: -Acute dyspnea, likely secondary to subacute bronchitis: Admit patient for medical services. Dispo MedSurg Monitor for O2 saturation. Oxygen as needed. Currently on 2 L Continue DuoNeb every 6h Monitor the rest of the vitals. Increase home prednisone to 5 mg twice daily Tessalon Perles 200 3 times daily Guaifenesin for cough as needed Start on Levaquin IV empirically. Goal to switch p.o. Blood culture and sputum culture pending Troponin negative Respiratory panel negative -Chronic asymptomatic hyponatremia: Sodium 125 Continue monitor Repeat CBC/CMP Watch for electrolyte imbalance -Anxiety: On alprazolam Hypertension: Patient on long-term lisinopril, triamterene hydrochlorothiazide and statin. Low suspicion for KERRI inhibitor induced cough Resumed Sjgrens disease: Patient on chronic steroid regimen biological monthly stable Levonox for DVT ppx. on protonix for GERD and gi bleed ppx Full code Attending attestation Patient was seen and evaluated at the bedside myself, agree with [employer]UMINUM POOL INSTALLER note.
[2023-08-09] MEDS: METHYLPREDNISOLONE SOD SUCC 125MG VIAL 125 MG IV (22:45)
[2023-08-09] MEDS: CEFTRIAXONE 1 GM 1 GM in 0.9 % SODIUM CHLORIDE 50 ML IV (22:46)
[2023-08-09] MEDS: ACETAMINOPHEN 500MG TAB 1000 MG PO (22:49)
--- NOTE | 2023-08-09 22:56 | PC.NURSE ---
report called to fabiano Henson
[2023-08-09] MEDS: AZITHROMYCIN 500 MG in 0.9 % SODIUM CHLORIDE 250 ML 250 MG IV (23:02)
--- NOTE | 2023-08-09 23:10 | PC.NURSE ---
0365 RECIEVED PHONE REPORT FROM BLADIMIR RN/ED NURSE. 63 YO FEMALE PATIENT ARRIVED TO THE FLOOR AT 2310 VIA W/C. DIAGNOSIS PNEUMONIA.
--- NOTE | 2023-08-09 23:11 | PC.NURSE ---
Patient arrived to floor via wheelchair from ED at 23:10.
[2023-08-09] MEDS: LEVOFLOXACIN/D5W 750 MG/150 ML 750 MG/150 ML PIGGYBACK 100 MG IV (23:39)
[2023-08-09] MEDS: 0.9 % SODIUM CHLORIDE 1000ML 1,000 ML 50 ML IV (23:39)
[2023-08-10] VITALS: BP 154/79; PULSE 77; RESP 17; TEMP 36.9; O2SAT 96
--- NOTE | 2023-08-10 00:21 | PC.NURSE ---
Pt notified of need for sputum collection. Specimen cup left on bedside table. Pt instructed to call out when able to provide sample. Pt verbalizes understanding.
--- NOTE | 2023-08-10 01:39 | PC.NURSE ---
PATIENT HAS ASKED FOR MUCINEX AND COUGH SYRUP. HAVE CONTACTED AMOL Tillman NP TWICE RE PATIENT'S REQUEST. NO NEW ORDERS RECEIVED.
[2023-08-10] MEDS: GUAIFENESIN/DEXTROMETHORPHAN 200MG/20MG 10ML UDC 10 ML PO ×3 (02:38→20:14)
[2023-08-10] MEDS: ALPRAZolam 0.25MG TABLET 0.25 MG PO (02:38)
--- NOTE | 2023-08-10 02:59 | PC.NURSE ---
AT 0230 MEDICATED PATIENT FOR COUGH WITH ROBITUSSIN DM 10 ML PO AND XANAX 0.25 MG PO FOR NERVES. 02 AT 2LNC, 02 SATS 96%. DENIES CP. REPORTS SOA WITH EXERTION. A/O X 4. PLEASANT AND COOPERATIVE. COUGH IS DRY AND PERSISTANT.
[2023-08-10 04:00] VITALS: BP 166/80; PULSE 86; RESP 17; TEMP 36.6; O2SAT 92; BMI 34.3
[2023-08-10 08:00] VITALS: BP 158/78; PULSE 87; RESP 18; TEMP 36.7; O2SAT 94
[2023-08-10 08:12] LABS: Alanine Aminotransferase 48 U/L (12-78); Albumin Level 4.2 g/dl (3.5-5.0); Albumin/Globulin Ratio 1.4 (1.1-1.8); Alkaline Phosphatase 108 U/L (38-126); Aspartate Amino Transferase 59 U/L (14-36); Bilirubin,Total 0.3 mg/dl (0.2-1.3); Blood Urea Nitrogen 4 mg/dl (7-17); Calcium 8.6 mg/dl (8.4-10.2); Carbon Dioxide 28 mmol/L (22.0-30.0); Chloride 92 mmol/L (98-107); Creatinine Clearance Estimated 83 mL/min (50-200); Estimated Glomerular Filt Rate 101 ml/min (>60); GFR (African American) 122 ML/MIN (>60); Glucose 167 mg/dl (74-100); Magnesium 1.6 mg/dl (1.6-2.3); Sodium 126 mmol/L (136-145); Total Protein,Serum 7.2 g/dl (6.3-8.2)
[2023-08-10 08:14] LABS: Anion Gap 9.2 mEq/L (5-15)
[2023-08-10 08:15] LABS: Potassium 3.2 mmoL/L (3.5-5.1)
[2023-08-10 08:20] LABS: Basophils % 0.1 % (0.1-2.0); Eosinophils % 0.4 % (0.1-12.0); Hematocrit 35.1 % (37.0-47.0); Hemoglobin 12.8 g/dL (12.2-16.2); Lymphocytes # 0.9 K/mm3 (0.7-4.5); Lymphocytes % 33.5 % (10-50); Mean Corpuscular HGB Conc 36.5 g/dL (31.8-35.4); Mean Corpuscular Hemoglobin 33.3 pg (27.0-31.2); Mean Corpuscular Volume 91.4 fl (81-99); Mean Platelet Volume 7.4 fl (7.4-10.4); Monocytes # 0.1 K/mm3 (0.1-1.0); Monocytes % 2.4 % (1.7-9.3); Neutrophils # 1.6 K/mm3 (1.8-7.8); Neutrophils % 63.5 % (37.0-80.0); Platelet Count 316 K/mm3 (142-424); Red Blood Count 3.84 M/mm3 (4.20-5.40); Red Cell Distribution Width 13.4 % (11.5-17.5); White Blood Count 2.5 K/mm3 (4.8-10.8)
[2023-08-10] MEDS: predniSONE 5MG TAB 5 MG PO ×2 (08:58→20:16)
[2023-08-10] MEDS: HCTZ 25MG/TRIAMTERENE 37.5MG TABLET 1 EACH PO (08:58)
[2023-08-10] MEDS: LISINOPRIL 20MG TABLET 20 MG PO ×2 (08:58→20:15)
[2023-08-10] MEDS: BENZONATATE 100MG CAPSULE 200 MG PO ×2 (08:59→14:32)
[2023-08-10] MEDS: hydrOXYzine pamoate 25MG CAPSULE 25 MG PO (09:00)
[2023-08-10] MEDS: ASPIRIN EC 81MG TABLET 81 MG PO (09:00)
[2023-08-10] MEDS: HYDROXYCHLOROQUINE SULFATE 200MG TABLET 200 MG PO ×2 (09:00→20:16)
[2023-08-10] MEDS: PANTOPRAZOLE 40MG TABLET 40 MG PO (09:00)
[2023-08-10] MEDS: MEDROXYPROGESTERONE ACETATE 2.5MG TABLET 2.5 MG PO (09:00)
[2023-08-10] MEDS: CARVEDILOL 12.5MG TABLET 12.5 MG PO ×2 (09:00→20:16)
[2023-08-10] MEDS: PARoxetine 20MG TABLET 40 MG PO (09:00)
[2023-08-10] MEDS: ENOXAPARIN 40MG/0.4ML SYRINGE 40 MG SQ (09:01)
[2023-08-10] MEDS: FLUTICASONE PROP 50MCG NASAL SPRAY 16GM 1 SPRAY NS (09:02)
[2023-08-10] MEDS: LORATADINE 10MG TABLET 10 MG PO (09:03)
--- NOTE | 2023-08-10 11:24 | HMH.PHAINT1 ---
Pharmacy Intervention Comments: MEDICATION RECONCILIATION COMPLETED ON PATIENT USING EXTERNAL FILL HISTORY FROM PHARMACY AND LIST FROM PCP OFFICE. -KATHY MARIA, COLED
[2023-08-10 11:44] VITALS: BP 158/78; PULSE 87; RESP 18; TEMP 36.8; O2SAT 96
--- NOTE | 2023-08-10 13:48 | P.PN_ITS ---
Subjective *Date: 08/10/23 *Time: 13:48 Interval history: patient was seen and evaluated at the bedside. No reported acute events overnight, denies chest pain, shortness of breath, nausea, vomiting, abdominal pain. Exam Data for Last 24 hours Vital signs and Labs for Last 24 Hours: Temp Pulse Resp BP Pulse Ox O2 Del Method O2 Flow Rate 98.2 F 87 18 158/78 H 96 Nasal Cannula 2 08/10/23 11:44 08/10/23 11:44 08/10/23 11:44 08/10/23 11:44 08/10/23 11:44 08/10/23 11:44 08/10/23 11:44 Laboratory Results - last 24 hr 08/09/23 18:20: WBC 5.8, RBC 4.03 L, Hgb 13.2, Hct 37.0, MCV 91.7, MCH 32.6 H, MCHC 35.6 H, RDW 13.3, Plt Count 284, MPV 8.7, Neut % (Auto) 41.1, Lymph % (Auto) 35.8, [place] % (Auto) 8.3, Eos % (Auto) 14.0 H, Baso % (Auto) 0.9, Neut # (Auto) 2.4, Lymph # (Auto) 2.1, [place] # (Auto) 0.5, Eos # (Auto) 0.8 H, Baso # (Auto) 0.1, Sodium 125 L, Potassium 4.5, Chloride 92 L, Carbon Dioxide 25, Anion Gap 12.5, BUN 7, Creatinine 0.70, Estimated Creat Clear 82, Estimated GFR 85, Est GFR ( Amer) 102, Glucose 93, Calcium 8.6, Total Bilirubin 1.1, AST 83 H, ALT 44, Alkaline Phosphatase 109, Troponin I 0.02, Total Protein 7.2, Albumin 4.3, Globulin 2.9, Albumin/Globulin Ratio 1.5 08/09/23 18:47: SARS-CoV-2 (PCR) Not detected, Influenza A Untype (PCR) Not detected, Influenza Type B (PCR) Not detected 08/09/23 19:13: Urine Color Yellow, Urine Appearance Clear, Urine pH 7.0, Ur Specific [place] 1.020, Urine Protein Negative, Urine Glucose (UA) Negative, Urine Ketones Negative, Urine Blood Negative, Urine Nitrate Negative, Urine Bilirubin Negative, Urine Urobilinogen 0.2, Ur Leukocyte Esterase Negative, Urine RBC None, Urine WBC Occasional, Ur Squamous Epith Cells 3-5, Urine Bacteria Trace 08/09/23 21:42: Troponin I < 0.01 08/10/23 07:39: WBC 2.5 L D, RBC 3.84 L, Hgb 12.8, Hct 35.1 L, MCV 91.4, MCH 33.3 H, MCHC 36.5 H, RDW 13.4, Plt Count 316, MPV 7.4, Neut % (Auto) 63.5, Lymph % (Auto) 33.5, [place] % (Auto) 2.4, Eos % (Auto) 0.4, Baso % (Auto) 0.1, Neut # (Auto) 1.6 L, Lymph # (Auto) 0.9, [place] # (Auto) 0.1, Eos # (Auto) 0.0, Baso # (Auto) 0.0, Sodium 126 L, Potassium 3.2 L D, Chloride 92 L, Carbon Dioxide 28, Anion Gap 9.2, BUN 4 L D, Creatinine 0.60, Estimated Creat Clear 83, Estimated GFR 101, Est GFR ( Amer) 122, Glucose 167 H D, Calcium 8.6, Magnesium 1.6, Total Bilirubin 0.3, AST 59 H D, ALT 48, Alkaline Phosphatase 108, Total Protein 7.2, Albumin 4.2, Globulin 3.0, Albumin/Globulin Ratio 1.4 I & O for Last 24 hours: Intake & Output 08/07/23 08/08/23 08/09/23 08/10/23 23:59 23:59 23:59 23:59 Intake Total 1450 / 1450 Output Total 0 / 0 Balance 1450 / 1450 Weight 91.308 kg 91.307 kg Constitutional Constitutional: no acute distress *Routine HEENT Exam Head: Present normocephalic Eye: Present EOMI and PERRL ENT: Present mucous membranes moist *Routine Neck Exam Neck: Present supple; Absent lymphadenopathy *Routine Respiratory Exam Respiratory: Present CTA bilaterally *Routine Cardiovascular Exam Cardiovascular: Present RRR *Routine Abdominal Exam Abdominal: Present soft and normoactive bowel sounds; Absent tenderness *Routine Extremities Exam Extremities: Absent cyanosis, clubbing or edema *Routine Skin Exam Skin: Present warm; Absent rash *Routine Neurological Exam Neurological: Present alert and oriented X3 Assessment and Plan *Assessment and plan (1) Acute dyspnea: Status: Acute Category: Medical Code(s): R06.00 - Dyspnea, unspecified (2) Bronchitis: Status: Acute Category: Medical Code(s): J40 - Bronchitis, not specified as acute or chronic (3) Hyponatremia: Status: Acute Category: Medical Code(s): E87.1 - Hypo-osmolality and hyponatremia (4) Anxiety: Status: Acute Category: Medical Code(s): F41.9 - Anxiety disorder, unspecified (5) HTN (hypertension): Status: Acute Qualifiers: Hypertension type: primary hypertension Qualified Code(s): I10 - Essential (primary) hypertension Category: Medical Code(s): I10 - Essential (primary) hypertension (6) Sjogrens syndrome: Status: Acute Qualifiers: Sjogren organ or system involvement: unspecified organ involvement Qualified Code(s): M35.00 - Sjogren syndrome, unspecified Category: Medical Code(s): M35.00 - Sjogren syndrome, unspecified Plan 63-year-old female with PMHx of Sjogren syndrome on chronic steroids and hydroxychloroquine, hypertension presents with worsening cough shortness of breath and chest heaviness. on arrival patient work up included CXR that ruled out any focal opacity. Lab work was grossly unremarkable. Only positive for hyponatremia, which is chronic on this patient and asymptomatic. Because of the high risk of decompensation and long-term immunosuppression state, after discussion with the ER, we would agree for admission. Plan as follow: -Acute dyspnea, likely secondary to subacute bronchitis: Monitor for O2 saturation. Oxygen as needed. Currently on 2 L continue O2 Continue DuoNeb every 6h Monitor the rest of the vitals. Increase home prednisone to 5 mg twice daily Tessalon Perles 200 3 times daily Guaifenesin for cough as needed Start on Levaquin IV empirically. Goal to switch p.o. Blood culture and sputum culture pending Troponin negative Respiratory panel negative -Chronic asymptomatic hyponatremia: Sodium 125 Continue monitor Repeat CBC/CMP Watch for electrolyte imbalance -Anxiety: On alprazolam Hypertension: Patient on long-term lisinopril, triamterene hydrochlorothiazide and statin. Low suspicion for KERRI inhibitor induced cough Resumed Sjgrens disease: Patient on chronic steroid regimen biological monthly stable Levonox for DVT ppx. on protonix for GERD and gi bleed ppx Full code
[2023-08-10] MEDS: POTASSIUM CHLORIDE 20MEQ TAB 20 MEQ PO (14:27)
[2023-08-10] MEDS: ACETAMINOPHEN 325MG TAB 650 MG PO ×2 (14:32→20:14)
[2023-08-10] MEDS: ONDANSETRON 4MG/2ML VIAL 4 MG IV (14:36)
[2023-08-10 14:47] LABS: Troponin I < 0.01 ng/ml (0.00-0.034)
[2023-08-10 15:55] VITALS: BP 164/73; PULSE 84; RESP 20; TEMP 36.6; O2SAT 95
--- NOTE | 2023-08-10 17:37 | PC.NURSE ---
Patient a&ox4 and vss. Patient has had a few coughing spells this shift but prn robotussin and tessalon perles have helped. patient c/o pain in rib area when coughing. Patient tolerating diet but has a decreased appetite. Patient tolerating iv fluids and antibiotics.
[2023-08-10 20:00] VITALS: BP 164/77; PULSE 78; RESP 17; TEMP 37.1; O2SAT 96
[2023-08-10] MEDS: METHOCARBAMOL 500MG TABLET 500 MG PO (20:15)
[2023-08-10] MEDS: PRAVASTATIN 40MG TAB 40 MG PO (20:15)
[2023-08-10] MEDS: LEVOFLOXACIN/D5W 750 MG/150 ML 750 MG/150 ML PIGGYBACK 100 MG IV (20:15)
[2023-08-10] MEDS: AMITRIPTYLINE 50MG TABLET 50 MG PO (20:16)
[2023-08-10] MEDS: GABAPENTIN 300MG CAPSULE 300 MG PO (20:16)
--- NOTE | 2023-08-10 20:20 | PC.NURSE ---
Pt placed on room air at this time, O2 sat reading 96%.
[2023-08-10 20:35] LABS: Troponin I < 0.01 ng/ml (0.00-0.034)
[2023-08-11] VITALS: BP 141/77; PULSE 82; RESP 17; TEMP 36.9; O2SAT 97
[2023-08-11] MEDS: 0.9 % SODIUM CHLORIDE 1000ML 1,000 ML 100 ML IV (00:34)
[2023-08-11 04:00] VITALS: BP 140/75; PULSE 76; RESP 17; TEMP 36.9; O2SAT 92; BMI 34.3
--- NOTE | 2023-08-11 05:02 | PC.NURSE ---
Addendum entered by Janey Jefferson, SRNA 08/11/23 05:08: Pt remains on room air with O2 >90%. Pt has had no complaints of SOB. Original Note: Pt has rested very well through the night. Pt complained of pain one time, treated per oct. Treated cough per oct one time. Pt A&Ox4. No new complaints. Lung sounds clear. Bowel sounds active. Pt ambulates to the restroom with standby assist. Call light in reach.
[2023-08-11 07:14] LABS: Basophils % 0.3 % (0.1-2.0); Eosinophils # 0.1 K/mm3 (0.0-0.4); Eosinophils % 1.3 % (0.1-12.0); Hematocrit 33.5 % (37.0-47.0); Hemoglobin 11.8 g/dL (12.2-16.2); Lymphocytes # 1.6 K/mm3 (0.7-4.5); Lymphocytes % 29.1 % (10-50); Mean Corpuscular HGB Conc 35.1 g/dL (31.8-35.4); Mean Corpuscular Hemoglobin 32.8 pg (27.0-31.2); Mean Corpuscular Volume 93.3 fl (81-99); Monocytes # 0.4 K/mm3 (0.1-1.0); Monocytes % 7.3 % (1.7-9.3); Neutrophils # 3.4 K/mm3 (1.8-7.8); Platelet Count 291 K/mm3 (142-424); Red Cell Distribution Width 13.5 % (11.5-17.5); White Blood Count 5.5 K/mm3 (4.8-10.8)
[2023-08-11 07:20] LABS: Alanine Aminotransferase 38 U/L (12-78); Albumin Level 3.7 g/dl (3.5-5.0); Albumin/Globulin Ratio 1.4 (1.1-1.8); Alkaline Phosphatase 85 U/L (38-126); Anion Gap 7.2 mEq/L (5-15); Aspartate Amino Transferase 48 U/L (14-36); Bilirubin,Total 0.3 mg/dl (0.2-1.3); Blood Urea Nitrogen 7 mg/dl (7-17); Calcium 8.5 mg/dl (8.4-10.2); Carbon Dioxide 28 mmol/L (22.0-30.0); Chloride 93 mmol/L (98-107); Creatinine Clearance Estimated 83 mL/min (50-200); Estimated Glomerular Filt Rate 101 ml/min (>60); GFR (African American) 122 ML/MIN (>60); Globulin 2.7 g/dL (1.3-3.2); Glucose 122 mg/dl (74-100); Potassium 3.2 mmoL/L (3.5-5.1); Sodium 125 mmol/L (136-145); Total Protein,Serum 6.4 g/dl (6.3-8.2)
[2023-08-11 07:36] VITALS: BP 155/82; PULSE 78; RESP 16; TEMP 37; O2SAT 98
--- NOTE | 2023-08-11 08:45 | P.DS_ITS ---
General Admission date:: 08/09/23 Discharge date: 08/11/23 HPI HPI HPI: This is a 63-year-old female with PMHx of Sjogren syndrome on chronic steroids and hydroxychloroquine, hypertension presents with worsening cough shortness of breath and chest heaviness. She was recently seen by PCP and diagnosed with bronchitis and prescribed a Z-Praveen and cough medications. She reported cough have become worse and constant and now is productive of green sputum, sometimes flecked with blood. She reports that she is wheezy which is not normal for her. Admitted for further treatment and management. Hospital Course Hospital Course Hospital Course: Patient was seen and evaluated at the bedside on the day of discharge. Patient is stable for discharge. Patient wishes to be discharged. All patient questions were answered and patient was given time to ask questions. Patient was discharged in stable condition. Patient understands that she can return to ER in case of any sudden changes in health. Total time spent on DC - 38 mins 63-year-old female with PMHx of Sjogren syndrome on chronic steroids and hydroxychloroquine, hypertension presents with worsening cough shortness of breath and chest heaviness. on arrival patient work up included CXR that ruled out any focal opacity. Lab work was grossly unremarkable. Only positive for hyponatremia, which is chronic on this patient and asymptomatic. Because of the high risk of decompensation and long-term immunosuppression state, after discussion with the ER, we would agree for admission. Plan as follow: -Acute dyspnea, likely secondary to subacute bronchitis: - resolved dc on levofloxacin -Chronic asymptomatic hyponatremia: at baseline Exam Data for Last 24 hours Vital signs and Labs for Last 24 Hours: Temp Pulse Resp BP Pulse Ox O2 Del Method O2 Flow Rate 98.6 F 78 16 155/82 H 98 Room Air 1 08/11/23 07:36 08/11/23 07:36 08/11/23 07:36 08/11/23 07:36 08/11/23 07:36 08/11/23 07:36 08/10/23 20:00 Laboratory Results - last 24 hr 08/10/23 13:53: Troponin I < 0.01 08/10/23 19:45: Troponin I < 0.01 08/11/23 06:58: WBC 5.5 D, RBC 3.60 L, Hgb 11.8 L, Hct 33.5 L, MCV 93.3, MCH 32.8 H, MCHC 35.1, RDW 13.5, Plt Count 291, MPV 7.0 L, Neut % (Auto) 62.0, Lymph % (Auto) 29.1, [place] % (Auto) 7.3, Eos % (Auto) 1.3, Baso % (Auto) 0.3, Neut # (Auto) 3.4, Lymph # (Auto) 1.6, [place] # (Auto) 0.4, Eos # (Auto) 0.1, Baso # (Auto) 0.0, Sodium 125 L, Potassium 3.2 L, Chloride 93 L, Carbon Dioxide 28, Anion Gap 7.2, BUN 7 D, Creatinine 0.60, Estimated Creat Clear 83, Estimated GFR 101, Est GFR ( Amer) 122, Glucose 122 H D, Calcium 8.5, Total Bilirubin 0.3, AST 48 H, ALT 38, Alkaline Phosphatase 85, Total Protein 6.4, Albumin 3.7 D, Globulin 2.7, Albumin/Globulin Ratio 1.4 I & O for Last 24 hours: Intake & Output 08/08/23 08/09/23 08/10/23 08/11/23 23:59 23:59 23:59 23:59 Intake Total [id number] 466 / 466 Output Total 0 / 0 0 / 0 Balance 181 / 181 466 / 466 Weight 91.308 kg 91.307 kg 91.309 kg Constitutional Constitutional: no acute distress *Routine HEENT Exam Head: Present normocephalic Eye: Present EOMI and PERRL ENT: Present mucous membranes moist *Routine Neck Exam Neck: Present supple; Absent lymphadenopathy *Routine Respiratory Exam Respiratory: Present CTA bilaterally *Routine Cardiovascular Exam Cardiovascular: Present RRR *Routine Abdominal Exam Abdominal: Present soft and normoactive bowel sounds; Absent tenderness *Routine Extremities Exam Extremities: Absent cyanosis, clubbing or edema *Routine Skin Exam Skin: Present warm; Absent rash *Routine Neurological Exam Neurological: Present alert and oriented X3 Results Data Completed and Pending Labs on day of discharge: Labs from last 24 hours 08/11/23 08/10/23 08/10/23 06:58 19:45 13:53 WBC 5.5 D RBC 3.60 L Hgb 11.8 L Hct 33.5 L MCV 93.3 MCH 32.8 H MCHC 35.1 RDW 13.5 Plt Count 291 MPV 7.0 L Neut % (Auto) 62.0 Lymph % (Auto) 29.1 [place] % (Auto) 7.3 Eos % (Auto) 1.3 Baso % (Auto) 0.3 Neut # (Auto) 3.4 Lymph # (Auto) 1.6 [place] # (Auto) 0.4 Eos # (Auto) 0.1 Baso # (Auto) 0.0 Sodium 125 L Potassium 3.2 L Chloride 93 L Carbon Dioxide 28 Anion Gap 7.2 BUN 7 D Creatinine 0.60 Estimated Creat Clear 83 Estimated GFR 101 Est GFR ( Amer) 122 Glucose 122 H D Calcium 8.5 Total Bilirubin 0.3 AST 48 H ALT 38 Alkaline Phosphatase 85 Troponin I < 0.01 < 0.01 Total Protein 6.4 Albumin 3.7 D Globulin 2.7 Albumin/Globulin Ratio 1.4 DS: Diagnosis Discharge Diagnosis (1) Acute dyspnea: Status: Acute Code(s): R06.00 - Dyspnea, unspecified (2) Bronchitis: Status: Acute Code(s): J40 - Bronchitis, not specified as acute or chronic (3) Hyponatremia: Status: Acute Code(s): E87.1 - Hypo-osmolality and hyponatremia (4) Anxiety: Status: Acute Code(s): F41.9 - Anxiety disorder, unspecified (5) HTN (hypertension): Status: Acute Code(s): I10 - Essential (primary) hypertension Qualifiers: Hypertension type: primary hypertension Qualified Code(s): I10 - Essential (primary) hypertension (6) Sjogrens syndrome: Status: Acute Code(s): M35.00 - Sjogren syndrome, unspecified Qualifiers: Sjogren organ or system involvement: unspecified organ involvement Qualified Code(s): M35.00 - Sjogren syndrome, unspecified Meds Home Medications and Allergies Home Medications Medication Instructions Recorded Confirmed Type amitriptyline 50 mg tablet 50 mg PO HS Pain 11/18/17 08/10/23 History aspirin 81 mg tablet,delayed 81 mg PO DAILY Heart Health 11/18/17 08/09/23 History release cetirizine 10 mg capsule 10 mg PO DAILY Allergy Symptoms 11/18/17 08/09/23 History esomeprazole magnesium 20 mg 20 mg PO DAILY Acid Reflux 11/18/17 08/09/23 History capsule,delayed release gabapentin 300 mg capsule 300 mg PO HS Pain 02/19/22 08/09/23 History epinephrine 0.3 mg/0.3 mL 0.3 mg IM Q5-15M PRN Allergic 02/21/23 08/09/23 History injection, auto-injector Reaction hydroxychloroquine 200 mg tablet 200 mg PO BID 02/21/23 08/09/23 History (Plaquenil) hydroxyzine pamoate 25 mg capsule 25 mg PO DAILY ITCHING 02/21/23 08/09/23 History lisinopril 20 mg tablet 20 mg PO BID 02/21/23 08/09/23 History methocarbamol 500 mg tablet 500 mg PO HS Pain 02/21/23 08/09/23 History paroxetine HCl 40 mg tablet 40 mg PO DAILY 02/21/23 08/09/23 History prednisone 5 mg tablet 2.5 mg PO DAILY 02/21/23 08/09/23 History omalizumab 150 mg/mL subcutaneous 150 mg SQ Q4W 02/24/23 08/09/23 History syringe (Xolair) simvastatin 20 mg tablet 20 mg PO HS Cholesterol 02/24/23 08/10/23 History carvedilol 12.5 mg tablet 12.5 mg PO BID #60 tabs 04/28/23 08/09/23 Rx albuterol sulfate 90 mcg/actuation 2 puff inhalation Q4-6H PRN 05/13/23 08/09/23 Rx aerosol inhaler shortness of breath or wheezing 30 days #8.5 grams alprazolam 0.25 mg tablet 0.25 mg PO BID PRN anxiety #60 tabs 05/13/23 08/09/23 Rx fluticasone propionate 50 1 spray intranasal DAILYP PRN 05/13/23 08/10/23 History mcg/actuation nasal Allergy Symptoms spray,suspension triamterene 37.5 1 tab PO DAILY Fluid 06/30/23 08/09/23 History mg-hydrochlorothiazide 25 mg tablet estradiol 1 mg tablet 1 mg PO DAILY 08/05/23 08/09/23 History medroxyprogesterone 2.5 mg tablet 2.5 mg PO DAILY 08/05/23 08/09/23 History ibuprofen 800 mg tablet 800 mg PO Q8HP PRN Mild Pain 08/10/23 08/10/23 History (Scale Score 1-4) promethazine-DM 6.25 mg-15 mg/5 mL 5 ml PO Q4HP PRN cough 08/10/23 08/10/23 History oral syrup tramadol 50 mg tablet 50 mg PO Q6HP PRN Moderate Pain 08/10/23 08/10/23 History (Scale Score 5-6) levofloxacin 250 mg tablet 250 mg PO Q24H 3 days #3 tabs 08/11/23 Rx New Prescriptions to Start Prescriptions: levofloxacin Sima Mari Allergies Allergy/AdvReac Type Severity Reaction Status Date / Time latex Allergy rash/hives Verified 08/09/23 18:58 Discharge Plan Disposition Patient Disposition: Home, Self-Care Condition: Good Follow up Plan Follow up with: Sofia Suarez APRN [Primary Care Provider] - 08/18/23 10:00 am Prescriptions/Medication Reconciliation: New levofloxacin 250 mg tablet 250 mg PO Q24H 3 Days Qty: 3 0RF Continued paroxetine HCl 40 mg tablet 40 mg PO DAILY Xolair 150 mg/mL syringe 150 mg SQ Q4W simvastatin 20 mg tablet 20 mg PO HS prednisone 5 mg tablet 2.5 mg PO DAILY methocarbamol 500 mg tablet 500 mg PO HS epinephrine 0.3 mg/0.3 mL auto-injector 0.3 mg IM Q5-15M PRN (Reason: Allergic Reaction) Rx Instructions: do not exceed 3 doses per episode hydroxychloroquine [Plaquenil] 200 mg tablet 200 mg PO BID lisinopril 20 mg tablet 20 mg PO BID fluticasone propionate 50 mcg/actuation spray,suspension 1 spray NS DAILYP PRN (Reason: Allergy Symptoms) alprazolam 0.25 mg tablet 0.25 mg PO BID PRN (Reason: anxiety) Qty: 60 0RF albuterol sulfate 90 mcg/actuation HFA aerosol inhaler 2 puff inhalation Q4-6H PRN (Reason: shortness of breath or wheezing) 30 Days Qty: 8.5 1RF estradiol 1 mg tablet 1 mg PO DAILY medroxyprogesterone 2.5 mg tablet 2.5 mg PO DAILY carvedilol 12.5 mg tablet 12.5 mg PO BID Qty: 60 5RF aspirin 81 MG tablet,delayed release (DR/EC) 81 mg PO DAILY amitriptyline 50 MG tablet 50 mg PO HS esomeprazole magnesium 20 MG capsule,delayed release(DR/EC) 20 mg PO DAILY cetirizine 10 MG capsule 10 mg PO DAILY gabapentin 300 mg capsule 300 mg PO HS Patient Comments: hydroxyzine pamoate 25 mg capsule 25 mg PO DAILY triamterene-hydrochlorothiazid 37.5-25 mg tablet 1 tab PO DAILY promethazine-DM 6.25-15 mg/5 mL syrup 5 ml PO Q4HP PRN (Reason: cough) ibuprofen 800 mg tablet 800 mg PO Q8HP PRN (Reason: Mild Pain (Scale Score 1-4)) tramadol 50 mg tablet 50 mg PO Q6HP PRN (Reason: Moderate Pain (Scale Score 5-6)) Problem Reconciliation Problems Reviewed?: Yes Patient Discharge Instructions ACTIVITY: Ambulate as tolerated DIET: continue same diet Patient Instructions: DI for Pneumonia -- Adult, DI for Chest Pain Providers Primary Care Provider: Sofia Suarez Admit Provider: Rolo Cortes Attending Provider: Sima Mari
[2023-08-11] MEDS: ASPIRIN EC 81MG TABLET 81 MG PO (08:54)
[2023-08-11] MEDS: LISINOPRIL 20MG TABLET 20 MG PO (08:54)
[2023-08-11] MEDS: HYDROXYCHLOROQUINE SULFATE 200MG TABLET 200 MG PO (08:54)
[2023-08-11] MEDS: PANTOPRAZOLE 40MG TABLET 40 MG PO (08:54)
[2023-08-11] MEDS: hydrOXYzine pamoate 25MG CAPSULE 25 MG PO (08:55)
[2023-08-11] MEDS: PARoxetine 20MG TABLET 40 MG PO (08:55)
[2023-08-11] MEDS: ENOXAPARIN 40MG/0.4ML SYRINGE 40 MG SQ (08:56)
[2023-08-11] MEDS: predniSONE 5MG TAB 5 MG PO (08:56)
[2023-08-11] MEDS: CARVEDILOL 12.5MG TABLET 12.5 MG PO (08:56)
[2023-08-11] MEDS: LORATADINE 10MG TABLET 10 MG PO (08:56)
[2023-08-11] MEDS: HCTZ 25MG/TRIAMTERENE 37.5MG TABLET 1 EACH PO (08:56)
[2023-08-11] MEDS: MEDROXYPROGESTERONE ACETATE 2.5MG TABLET 2.5 MG PO (08:56)
[2023-08-11] MEDS: FLUTICASONE PROP 50MCG NASAL SPRAY 16GM 1 SPRAY NS (08:57)
[2023-08-11] MEDS: POTASSIUM CHLORIDE 20MEQ TAB 20 MEQ PO (09:54)
--- NOTE | 2023-08-12 15:26 | CARE MANAGER ---
Contacted patient related to hospital discharge and she states she is doing better and denies questions or concerns. She has her antibiotic and is aware of follow up appointment. STELLA Rome
== END 2023-08-11 10:10 | disposition home or self-care (01) ==
LOC: UTC 16:31 → ER 18:13 → 2ND 22:59
PROVIDERS: Admitting Provider Nurse Practitioner Family; Emergency Provider Emergency Medicine; PCP Nurse Practitioner Family; Visit Provider Internal Medicine
DX: J20.9 Acute bronchitis, unspecified (principal); I10 Essential (primary) hypertension; M35.00 Sjogren syndrome, unspecified; Z79.899 Other long term (current) drug therapy; Z82.49 Family history of ischemic heart disease and other diseases of the circulatory system; E87.1 Hypo-osmolality and hyponatremia; Z79.52 Long term (current) use of systemic steroids; D89.89 Other specified disorders involving the immune mechanism, not elsewhere classified
CPT/HCPCS: 36415; 71045; 80053; 81001; 83735; 84484; 85025; 87040; 87070; 87205; 87636; 93005; 99285; G0378; J0456; J0696; J1956; J2405

== ENCOUNTER 2023-08-19 15:56 | Outpatient (CLI) | payer BC, SELFPAY ==
--- NOTE | 2023-08-19 16:06 | ECG_ITS ---
APPROVED REPORT Exam: Resting ECG HR:72 bpm ECG Measurements Heart Rate 72 AXES LA 149 P 55 QRSd 98 QRS 48 QT 408 T 54 QTc 433 Conclusion SINUS RHYTHM Late R wave progression BORDERLINE ECG UNCONFIRMED REPORT Electronically signed by : Umesh Walter MD 08/20/2023 08:37:07
--- NOTE | 2023-08-19 16:18 | XR_ITS ---
FINAL REPORT TECHNIQUE: Chest PA & Lateral CLINICAL HISTORY: PRE-OP STUDY FOR SHOULDER SURGERY COMPARISON: August 09, 2023 FINDINGS: 2 views of the chest were performed. The heart size is normal. The mediastinum is within normal limits. There is no acute cardiopulmonary process. There are no pleural effusions. There is no pneumothorax. The bony thorax appears intact. IMPRESSION: No acute cardiopulmonary process. Reviewed, Interpreted and Dictated by Anastacio Almazan III, MD Transcribed by Mumtaz Portillo Authenticated and [facility]
[2023-08-19 17:24] LABS: Chloride 92 mmol/L (98-107); Potassium 3.6 mmoL/L (3.5-5.1); Sodium 126 mmol/L (136-145)
[2023-08-19 17:27] LABS: Basophils % 0.5 % (0.1-2.0); Blood Urea Nitrogen 8 mg/dl (7-17); Eosinophils # 0.6 K/mm3 (0.0-0.4); Eosinophils % 10.5 % (0.1-12.0); Estimated Glomerular Filt Rate 85 ml/min (>60); GFR (African American) 102 ML/MIN (>60); Hematocrit 36.5 % (37.0-47.0); Hemoglobin 12.3 g/dL (12.2-16.2); Lymphocytes # 1.8 K/mm3 (0.7-4.5); Lymphocytes % 30.7 % (10-50); Mean Corpuscular HGB Conc 33.7 g/dL (31.8-35.4); Mean Corpuscular Hemoglobin 32.4 pg (27.0-31.2); Mean Platelet Volume 8.1 fl (7.4-10.4); Monocytes # 0.4 K/mm3 (0.1-1.0); Neutrophils # 2.9 K/mm3 (1.8-7.8); Neutrophils % 51.3 % (37.0-80.0); Platelet Count 351 K/mm3 (142-424); Red Blood Count 3.81 M/mm3 (4.20-5.40); Red Cell Distribution Width 13.4 % (11.5-17.5); White Blood Count 5.7 K/mm3 (4.8-10.8)
[2023-08-19 17:28] LABS: Anion Gap 11.6 mEq/L (5-15); Calcium 8.6 mg/dl (8.4-10.2); Carbon Dioxide 26 mmol/L (22.0-30.0); Glucose 94 mg/dl (74-100)
[2023-08-19 19:38] LABS: Hemoglobin A1C 5.4 % (4.0-6.0)
== END 2023-08-19 23:59 ==
LOC: RT 15:57
PROVIDERS: PCP Nurse Practitioner Family; Visit Provider Orthopaedic Surgery Sports Medicine
DX: Z01.818 Encounter for other preprocedural examination (principal); R73.09 Other abnormal glucose; Z87.898 Personal history of other specified conditions
CPT/HCPCS: 36415; 71046; 80048; 83036; 85025; 93005

== ENCOUNTER 2023-08-22 07:44 | Outpatient (CLI) | payer BC, SELFPAY ==
--- NOTE | 2023-08-22 08:23 | PC.NURSE ---
Pt unable to complete PFT due coughing and recent diagnosis of bronchitis. Voicemail left with office.
== END 2023-08-22 23:59 ==
LOC: RT 07:44
PROVIDERS: PCP Nurse Practitioner Family; Visit Provider Nurse Practitioner Family
DX: R06.2 Wheezing (principal)

== ENCOUNTER 2023-12-19 14:00 | Outpatient (RCR) | payer BC, SELFPAY | END 2023-12-19 14:05 | disposition home or self-care (01) | LOC: OT 14:00 | PROVIDERS: PCP Nurse Practitioner Family; Visit Provider Orthopaedic Surgery Sports Medicine | DX: M25.512 Pain in left shoulder (principal); S46.012A Strain of muscle(s) and tendon(s) of the rotator cuff of left shoulder, initial encounter | CPT/HCPCS: 97010; 97014; 97016; 97035; 97110; 97140; 97164; 97165; 97530; G0283 ==

== ENCOUNTER 2024-01-27 18:00 | Outpatient (CLI) | payer BC, SELFPAY ==
[2024-01-27 18:46] LABS: Basophils # 0.1 K/mm3 (0-0.2); Basophils % 0.9 % (0.1-2.0); Eosinophils # 0.2 K/mm3 (0.0-0.4); Hemoglobin 11.7 g/dL (12.2-16.2); Lymphocytes # 1.6 K/mm3 (0.7-4.5); Lymphocytes % 30.5 % (10-50); Mean Corpuscular HGB Conc 34.5 g/dL (31.8-35.4); Mean Corpuscular Volume 92.9 fl (81-99); Mean Platelet Volume 8.4 fl (7.4-10.4); Monocytes # 0.3 K/mm3 (0.1-1.0); Monocytes % 5.6 % (1.7-9.3); Neutrophils # 3.2 K/mm3 (1.8-7.8); Platelet Count 448 K/mm3 (142-424); Red Blood Count 3.66 M/mm3 (4.20-5.40); Red Cell Distribution Width 13.8 % (11.5-17.5); White Blood Count 5.3 K/mm3 (4.8-10.8)
[2024-01-27 19:20] LABS: Alanine Aminotransferase 52 U/L (12-78); Albumin Level 4.2 g/dl (3.5-5.0); Albumin/Globulin Ratio 1.4 (1.1-1.8); Alkaline Phosphatase 162 U/L (38-126); Aspartate Amino Transferase 70 U/L (14-36); Bilirubin,Total 0.4 mg/dl (0.2-1.3); Blood Urea Nitrogen 13 mg/dl (7-17); Calcium 9.3 mg/dl (8.4-10.2); Carbon Dioxide 28 mmol/L (22.0-30.0); Chloride 94 mmol/L (98-107); Chol/HDL Ratio 3.5 (1-3.5); Cholesterol 215 mg/dl (140-200); Estimated Glomerular Filt Rate 85 ml/min (>60); GFR (African American) 102 ML/MIN (>60); Glucose 99 mg/dl (74-100); HDL Cholesterol 62 mg/dl (40-60); Sodium 133 mmol/L (136-145); Total Protein,Serum 7.2 g/dl (6.3-8.2); Triglycerides 141 mg/dl (30-150); VLDL Cholesterol 28 mg/dL (0-40)
[2024-01-27 19:31] LABS: Direct LDL Cholesterol 111.37 mg/dL (100-129)
[2024-01-27 20:13] LABS: Vitamin B12 > 1000 pg/mL (239-931)
[2024-01-27 21:21] LABS: Thyroid Stimulating Hormone 1.33 uIU/mL (0.465-4.68)
== END 2024-01-27 23:59 | disposition home or self-care (01) ==
LOC: LAB.DROPOF 01-28 08:29
PROVIDERS: PCP Nurse Practitioner Family; Visit Provider Nurse Practitioner Family
DX: I10 Essential (primary) hypertension (principal); F41.9 Anxiety disorder, unspecified; E53.8 Deficiency of other specified B group vitamins
CPT/HCPCS: 80050; 80053; 80061; 82607; 84443; 85025

== ENCOUNTER 2024-03-02 09:32 | Outpatient (CLI) | payer BC, SELFPAY ==
--- NOTE | 2024-03-02 09:32 | XR_ITS ---
FINAL REPORT TECHNIQUE: Bone densitometry calculations of the lumbar spine and left hip were obtained. CLINICAL HISTORY: Screening for osteoporosis COMPARISON: None FINDINGS: Using L1-4, the bone mineral density of the spine is 1.236 g/cm2, corresponding to T-score of 1.7. Using the left hip, the bone mineral density of the femoral neck is 1.028 g/cm2, corresponding to a T-score of 0.7. NOTE: T-score: Standard deviation compared with peak bone mass of young adult mean. *Following the recommendations of the International Society of Bone densitometry, classification of hip BMD is based on the lower of two T-scores; total hip or femoral neck. IMPRESSION: Normal bone mineral density of the lumbar spine and hip. Reviewed, Interpreted and Dictated by Angus Daniel MD Transcribed by Juliana Zhang Authenticated and . [facility]
== END 2024-03-02 23:59 | disposition home or self-care (01) ==
LOC: RAD 09:32
PROVIDERS: PCP Nurse Practitioner Family; Visit Provider Nurse Practitioner Family
DX: Z13.820 Encounter for screening for osteoporosis (principal)
CPT/HCPCS: 77080

== ENCOUNTER 2024-03-26 10:32 | Outpatient (CLI) | payer BC, SELFPAY ==
--- NOTE | 2024-03-26 10:33 | MM_ITS ---
PROCEDURE INFORMATION: Exam: MG Bilateral Screening 3D Mammography Exam date and time: 03/26/2024 10:27 AM Age: 63 years old Clinical indication: Screening examination; Additional info: Routine screening mammogram . Family history of breast carcinoma. TECHNIQUE: Imaging protocol: Bilateral Screening tomosynthesis and 2D mammography including computer-aided detection (CAD) when performed. COMPARISON: 1. MG MM DIG MAMM DX UNILAT LT CAD 03/17/2023 2:33 PM 2. MG MM DIG SCREENING MAMM BI W/CAD 02/24/2023 12:53 PM 3. MG MM DIG SCREENING MAMM BI W/CAD 02/19/2022 9:49 AM FINDINGS: MAMMOGRAPHY: Breast composition: The breasts are heterogeneously dense, which may obscure small masses. Mass: No suspicious masses. Architectural distortion: No suspicious distortion. Calcifications: No suspicious calcifications. Asymmetric density: None. Skin thickening: None. Axillary adenopathy: None. IMPRESSION: 1. No mammographic evidence of malignancy. Annual screening is recommended unless otherwise clinically indicated. 2. Given the reported risk factors for this patient, a breast cancer risk assessment may prove useful for further evaluation. ASSESSMENT: BI-RADS Category 1: Negative
== END 2024-03-26 23:59 | disposition home or self-care (01) ==
LOC: RAD 10:32
PROVIDERS: PCP Nurse Practitioner Family; Visit Provider Nurse Practitioner Obstetrics & Gynecology
DX: Z12.31 Encounter for screening mammogram for malignant neoplasm of breast (principal)
CPT/HCPCS: 77063; 77067

== ENCOUNTER 2024-05-07 14:27 | Emergency (ER) | payer BC, SELFPAY ==
[2024-05-07 14:47] VITALS: BP 127/67; PULSE 74; RESP 16; TEMP 36.7; O2SAT 97; BMI 35.2
--- NOTE | 2024-05-07 14:50 | EXP.UTC ---
Discharge Plan Disposition Patient Disposition: Home, Self-Care Condition: Good Prescriptions Prescriptions: New amoxicillin-pot clavulanate 875-125 mg Tablet 1 tab PO Q12H Qty: 20 0RF benzonatate 100 mg capsule 100 mg PO TID PRN (Reason: cough) Qty: 30 0RF No Action Xolair 150 mg/mL syringe 150 mg SQ Q4W prednisone 5 mg tablet 2.5 mg PO DAILY methocarbamol 500 mg tablet 500 mg PO HS epinephrine 0.3 mg/0.3 mL auto-injector 0.3 mg IM Q5-15M PRN (Reason: Allergic Reaction) Rx Instructions: do not exceed 3 doses per episode hydroxychloroquine [Plaquenil] 200 mg tablet 200 mg PO BID fluticasone propionate 50 mcg/actuation spray,suspension 1 spray NS DAILYP PRN (Reason: Allergy Symptoms) lisinopril 40 mg tablet 20 mg PO BID Patient Comments: TAKE 1/2 TABLET BY MOUTH TWICE DAILY triamterene-hydrochlorothiazid 37.5-25 mg tablet 1 tab PO DAILY 90 Days Qty: 90 3RF paroxetine HCl 40 mg tablet 40 mg PO DAILY Qty: 90 3RF amitriptyline 50 mg tablet See Rx Instructions .ROUTE .COMPLEX Qty: 90 3RF Dose Instruction: TAKE ONE TABLET BY MOUTH EVERY DAY AT BEDTIME Rx Instructions: TAKE ONE TABLET BY MOUTH EVERY DAY AT BEDTIME hydroxyzine HCl 25 mg tablet 25 mg PO BID Patient Comments: TAKE ONE TABLET BY MOUTH TWICE DAILY MAY CAUSE DROWSINESS progesterone micronized [Prometrium] 100 mg capsule 100 mg PO DAILY Qty: 90 3RF simvastatin 20 mg tablet 20 mg PO HS 90 Days Qty: 90 1RF Paxlovid 300 mg (150 mg x 2)-100 mg tablets,dose pack See Rx Instructions PO .COMPLEX Qty: 30 0RF Rx Instructions: take TWO 150 mg tablets of nirmatrelvir with ONE 100 mg tablet of ritonavir twice daily for 5 days PO albuterol sulfate 2.5 mg /3 mL (0.083 %) solution for nebulization 2.5 mg inhalation Q4-6H PRN (Reason: shortness of breath or wheezing) Qty: 90 0RF estradiol 1 mg tablet 1 mg PO DAILY Qty: 90 3RF carvedilol 12.5 mg tablet 12.5 mg PO BID Qty: 60 5RF alprazolam 0.25 mg tablet 0.25 mg PO BID PRN (Reason: anxiety) Qty: 60 0RF ibuprofen 800 mg tablet 800 mg PO Q8HP PRN (Reason: Mild Pain (Scale Score 1-4)) Qty: 90 0RF Airsupra 90-80 mcg/actuation HFA aerosol inhaler 2 inh inhalation 6XD PRN (Reason: shortness of breath) Qty: 10.7 1RF aspirin 81 MG tablet,delayed release (DR/EC) 81 mg PO DAILY esomeprazole magnesium 20 MG capsule,delayed release(DR/EC) 20 mg PO DAILY cetirizine 10 MG capsule 10 mg PO DAILY gabapentin 300 mg capsule 300 mg PO HS Patient Comments: Referrals Follow up/Referrals: Sofia Suarez APRN [Primary Care Provider] - See instructions Activity Restrictions/Add. Instructions Additional Instructions/Restrictions: *Monitor Temp, Over the counter Motrin or Tylenol as directed/as needed Tylenol every 4 hours and Motrin every 6 hours (as long as your family doctor has told you that you can take it) for fever or pain. and straight to ER if unable to lower temp less than 101.0 after medication given *Warm salt water gargles may help to soothe the throat *Throat Lozenges? *Warm fluids like tea with honey may help to soothe the throat? *Sleep elevated *Humidifier/Vaporizer Follow up IMMEDIATELY for new or worsening symptoms or no Noticeable improvement over the next 48-72 hours. 911 for difficulty breathing or swallowing Clinical Impressions Clinical Impression: Sinusitis Qualifiers: Sinusitis location: unspecified location Chronicity: unspecified Qualified Code(s): J32.9 - Chronic sinusitis, unspecified Instructions Patient Instructions: Sinusitis, DI for Sinusitis Print Language Print Language: Slovenian Discharge ED Provider: Emeli Morales [facility] General Stated complaint: headache, head congestion, sore throat Mode of Arrival: Ambulatory Source of Information: Patient Limitations: No Limitations Time Seen by Provider: 05/07/24 14:50 Description of Symptoms (Recalled from Triage Doc. by RN): Reports having COVID on 04/30/24 and states now she has sinus pressure, headache, drainage and sore throat. HEENT Symptoms (Recalled from RN notes): Yes Resp Symptoms (Recalled from RN notes): No Skin Symptoms (Recalled from RN notes): No MS Symptoms (Recalled from RN notes): No Functional Status (Recalled from RN notes): wnl History of Present Illness Provider Complaint: Patient states that she had COVID a week or two ago States she was doing better from the COVID but now having sinus pain and pressure and thick yellowish colored drainage from her nose States that she is having pressure behind her eyes and even her teeth are hurting so she came in to get checked for sinusitis Related Data Home Medications ?Medication ?Instructions ?Recorded ?Confirmed aspirin 81 mg tablet,delayed 81 mg PO DAILY Heart Health 11/18/17 04/30/24 release cetirizine 10 mg capsule 10 mg PO DAILY Allergy Symptoms 11/18/17 04/30/24 esomeprazole magnesium 20 mg 20 mg PO DAILY Acid Reflux 11/18/17 04/30/24 capsule,delayed release gabapentin 300 mg capsule 300 mg PO HS Pain 02/19/22 04/30/24 epinephrine 0.3 mg/0.3 mL 0.3 mg IM Q5-15M PRN Allergic 02/21/23 04/30/24 injection, auto-injector Reaction hydroxychloroquine 200 mg tablet 200 mg PO BID 02/21/23 04/30/24 (Plaquenil) methocarbamol 500 mg tablet 500 mg PO HS Pain 02/21/23 04/30/24 prednisone 5 mg tablet 2.5 mg PO DAILY 02/21/23 04/30/24 omalizumab 150 mg/mL subcutaneous 150 mg SQ Q4W 02/24/23 04/30/24 syringe (Xolair) fluticasone propionate 50 1 spray intranasal DAILYP PRN 05/13/23 04/30/24 mcg/actuation nasal Allergy Symptoms spray,suspension lisinopril 40 mg tablet 20 mg PO BID 01/02/24 04/30/24 hydroxyzine HCl 25 mg tablet 25 mg PO BID 03/26/24 04/30/24 Previous Rx's ?Medication ?Instructions ?Recorded albuterol sulfate 2.5 mg/3 mL 2.5 mg (3 mL) inhalation Q4-6H PRN 10/27/23 (0.083 %) solution for nebulization shortness of breath or wheezing #90 mL estradiol 1 mg tablet 1 mg PO DAILY #90 tabs 11/19/23 carvedilol 12.5 mg tablet 12.5 mg PO BID #60 tabs 11/20/23 simvastatin 20 mg tablet 20 mg PO HS Cholesterol 90 days 11/21/23 #90 tabs amitriptyline 50 mg tablet See Rx Instructions .Route 01/20/24 .COMPLEX #90 tabs paroxetine HCl 40 mg tablet 40 mg PO DAILY #90 tabs 01/20/24 triamterene 37.5 1 tab PO DAILY Fluid 90 days #90 01/20/24 mg-hydrochlorothiazide 25 mg tablet tabs alprazolam 0.25 mg tablet 0.25 mg PO BID PRN anxiety #60 tabs 02/17/24 ibuprofen 800 mg tablet 800 mg PO Q8HP PRN Mild Pain 03/22/24 (Scale Score 1-4) #90 tabs progesterone micronized 100 mg 100 mg PO DAILY #90 caps 03/26/24 capsule (Prometrium) nirmatrelvir 300 mg (150 mg See Rx Instructions PO .COMPLEX 04/30/24 x2)-ritonavir 100 mg tablet,dose #30 tabs pack (Paxlovid) albuterol 90 mcg-budesonide 80 2 inh inhalation 6XD PRN shortness 05/04/24 mcg/actuation HFA aerosol inhaler of breath #10.7 grams (Airsupra) amoxicillin 875 mg-potassium 1 tab PO Q12H #20 tabs 05/07/24 clavulanate 125 mg tablet benzonatate 100 mg capsule 100 mg PO TID PRN cough #30 caps 05/07/24 Allergies Allergy/AdvReac Type Severity Reaction Status Date / Time latex Allergy rash/hives Verified 03/30/24 10:54 oxycodone Allergy Verified 03/30/24 10:54 Worker's Comp Is this a Worker's Comp case?: No [facility] Disclaimer: The information contained in this section may have been updated after the patient was seen, as this information can be updated by other users. Medical History (Updated 05/07/24 @ 14:57 by Emeli Morales APRN) HTN (hypertension) Acute dyspnea PNA (pneumonia) Traumatic tear of left rotator cuff Decreased range of motion of left shoulder Injury of left shoulder Left shoulder pain Anxiety Iron deficiency anemia Vitamin B12 deficiency Abnormal electrocardiogram [ECG] [EKG] Hormone replacement therapy (HRT) Chest pain GERD (gastroesophageal reflux disease) Fibromyalgia Sjogrens syndrome Sinusitis Hyponatremia Surgical History H/O shoulder surgery Left, 01/21/24 History of delivery S/P ORIF (open reduction internal fixation) fracture left patella fx Family History Mother Heart attack Social History Smoking Status: Never smoker alcohol intake: never substance use type: denies use current occupational status: retired Travel in the last 8 weeks: None household members: family housing: house ROS Obtained: Yes All systems reviewed & no additional complaints except as documented and Yes Systems reviewed as appropriate & no additional complaints except as documented Constitutional Constitutional: Reports system reviewed and no additional complaints, except as documented and Reports as per HPI ENT Ears, Nose, Mouth, and Throat: Reports system reviewed and no additional complaints, except as documented, Reports as per HPI, Reports sinus pain and Reports sinus pressure Cardiovascular Cardiovascular: Reports system reviewed and no additional complaints, except as documented and Reports as per HPI Respiratory Respiratory: Reports system reviewed and no additional complaints, except as documented, Reports as per HPI and Reports cough Gastrointestinal Gastrointestingal: Reports system reviewed and no additional complaints, except as documented and as per HPI Physical Exam General General appearance: alert and in no apparent distress ENT ENT exam: Present mucous membranes moist Expanded ENT Exam Nose exam: Present sinus tenderness Throat exam: Present other (PND noted) Respiratory Respiratory exam: Present normal lung sounds bilaterally; Absent respiratory distress or wheezes Cardiovascular Cardiovascular exam: Present regular rate, normal rhythm and normal heart sounds Neurological Exam Neurological exam: Present alert, oriented X3 and normal gait Medical Decision Making Medical Records Screening: Per USPSTF and CDC recommendations, given the prevalence of disease in our region, it is our hospital?s policy to screen for HIV and viral Hepatitis for all patients aged 18 and over and those with ongoing risk factors. Geremisa Inquiry Pt receiving controlled substance: No Geremias was queried for this patient: No Vital Signs: 05/07/24 14:47 Temperature 98.0 F Temperature Source Oral Pulse Rate [Radial] 74 Respiratory Rate 16 Blood Pressure [Right Arm] 127/67 Blood Pressure Mean [Right Arm] 87 Blood Pressure Source [Right Arm] Automatic Cuff Blood Pressure Position [Right Arm] Sitting 02 Sat by Pulse Oximetry 97 Oxygen Delivery Method Room Air
[2024-05-07 15:09] VITALS: BP 127/67; PULSE 74; RESP 16; TEMP 36.7; O2SAT 97
== END 2024-05-07 15:11 | disposition home or self-care (01) ==
PROVIDERS: Emergency Provider Nurse Practitioner; PCP Nurse Practitioner Family
DX: J32.9 Chronic sinusitis, unspecified (principal)
CPT/HCPCS: 99212; G0381

== ENCOUNTER 2024-05-27 15:02 | Observation (INO) | payer BC, SELFPAY ==
[2024-05-27] VITALS (9 sets, daily range): BP systolic 97–137; BP diastolic 48–89; PULSE 72–84; RESP 13–18; TEMP 36.4–36.6; O2SAT 98–100; BMI 34.6; BMI 33.0
--- NOTE | 2024-05-27 15:03 | HMH.EDGENADL ---
Discharge Plan Disposition Patient Disposition: Admitted Discharge ED Provider: Jamil Hicks General Adult HPI General Chief complaint: Abdominal Pain Stated complaint: Rectal Bleeding/Nausea Time Seen by Provider: 05/27/24 15:03 History of Present Illness HPI narrative: The patient presents with a chief complaint of persistent diarrhea, abdominal cramping, nausea, and vomiting. She reports that her symptoms began suddenly and have been ongoing for about a week, causing her to become weak to the point of being unable to make it to the bathroom. The patient also mentions experiencing clamminess and sweating from head to toe. The patient reports that her diarrhea has not stopped and has recently been accompanied by bright red blood, estimating about half an ounce worth. She denies any black tarry stools. She states that she has been unable to get up during this time. The patient has a history of food poisoning last year with similar symptoms, except for the presence of blood. She denies any recent exposure to sick individuals or consumption of [id number] foods. Her surgical history includes three C-sections, but she still has her gallbladder and appendix. The patient describes her abdominal pain as being localized to the lower abdomen and associated with cramping during diarrhea. She denies any pain during bowel movements. She also reports experiencing pain in her chest that radiates to her back, but this pain was only present while she was lying on her side on the floor. The patient mentions that she initially thought she had food poisoning again. Her condition deteriorated to the point where she couldn't even crawl, prompting her to call her home. She confirms she is still experiencing nausea. Please note that above description of symptoms, in this electronic medical record under categorization of recalled from ER triage doctor by RN are reflective of an initial nursing assessment, however, is not reflective of my full history and physical exam that was personally taken and clarified. Consequentially, this preceding description of symptoms, which may include the patient's categorized chief complaint in the EMR, do not reflect my personal clinical impression, and the ultimate description of history of present illness and patient stated complaints should be deferred to this section of the note. Unless stated otherwise or congruent with this section of the note, additional signs, symptoms, or incongruence should be interpreted as inaccurate with my clinical impression. Related Data Home Medications ?Medication ?Instructions ?Recorded ?Confirmed aspirin 81 mg tablet,delayed 81 mg PO DAILY [facility] [place] 11/18/17 05/27/24 release cetirizine 10 mg capsule 10 mg PO DAILY Allergy Symptoms 11/18/17 05/27/24 esomeprazole magnesium 20 mg 20 mg PO DAILY Acid Reflux 11/18/17 05/27/24 capsule,delayed release gabapentin 300 mg capsule 300 mg PO HS Pain 02/19/22 05/27/24 epinephrine 0.3 mg/0.3 mL 0.3 mg IM Q5-15M PRN Allergic 02/21/23 05/27/24 injection, auto-injector Reaction hydroxychloroquine 200 mg tablet 200 mg PO BID 02/21/23 05/27/24 (Plaquenil) methocarbamol 500 mg tablet 500 mg PO HS Pain 02/21/23 05/27/24 prednisone 5 mg tablet 2.5 mg PO DAILY 02/21/23 05/27/24 omalizumab 150 mg/mL subcutaneous 150 mg SQ Q4W 02/24/23 05/27/24 syringe (Xolair) fluticasone propionate 50 1 spray intranasal DAILYP PRN 05/13/23 05/27/24 mcg/actuation nasal Allergy Symptoms spray,suspension lisinopril 40 mg tablet 20 mg PO BID 01/02/24 05/27/24 hydroxyzine HCl 25 mg tablet 25 mg PO BID 03/26/24 05/27/24 albuterol 90 mcg-budesonide 80 2 puff inhalation DIRECTED 05/27/24 05/27/24 mcg/actuation HFA aerosol inhaler (Airsupra) Previous Rx's ?Medication ?Instructions ?Recorded albuterol sulfate 2.5 mg/3 mL 2.5 mg (3 mL) inhalation Q4-6H PRN 10/27/23 (0.083 %) solution for nebulization shortness of breath or wheezing #90 mL estradiol 1 mg tablet 1 mg PO DAILY #90 tabs 11/19/23 amitriptyline 50 mg tablet See Rx Instructions .Route 01/20/24 .COMPLEX #90 tabs paroxetine HCl 40 mg tablet 40 mg PO DAILY #90 tabs 01/20/24 triamterene 37.5 1 tab PO DAILY Fluid 90 days #90 01/20/24 mg-hydrochlorothiazide 25 mg tablet tabs ibuprofen 800 mg tablet 800 mg PO Q8HP PRN Mild Pain 03/22/24 (Scale Score 1-4) #90 tabs progesterone micronized 100 mg 100 mg PO DAILY #90 caps 03/26/24 capsule (Prometrium) albuterol 90 mcg-budesonide 80 2 inh inhalation 6XD PRN shortness 05/04/24 mcg/actuation HFA aerosol inhaler of breath #10.7 grams (Airsupra) carvedilol 12.5 mg tablet 12.5 mg PO BID #60 tabs 05/10/24 alprazolam 0.25 mg tablet 0.25 mg PO BID PRN anxiety #60 tabs 05/11/24 simvastatin 20 mg tablet See Rx Instructions .Route 05/11/24 .COMPLEX #90 tabs Allergies Allergy/AdvReac Type Severity Reaction Status Date / Time latex Allergy rash/hives Verified 05/27/24 18:50 oxycodone Allergy Rash Verified 05/27/24 18:50 PFSH PFS Disclaimer: The information contained in this section may have been updated after the patient was seen, as this information can be updated by other users. Medical History (Updated 05/27/24 @ 18:47 by Garcia Yu MD) Sjogrens syndrome HTN (hypertension) Acute dyspnea PNA (pneumonia) Traumatic tear of left rotator cuff Decreased range of motion of left shoulder Injury of left shoulder Left shoulder pain Anxiety Iron deficiency anemia Vitamin B12 deficiency Abnormal electrocardiogram [ECG] [EKG] Hormone replacement therapy (HRT) Chest pain GERD (gastroesophageal reflux disease) Fibromyalgia Sinusitis Hyponatremia Surgical History H/O shoulder surgery History of delivery S/P ORIF (open reduction internal fixation) fracture Family History Mother Heart attack Social History Smoking Status: Never smoker alcohol intake: never substance use type: denies use current occupational status: retired Travel in the last 8 weeks: None household members: family housing: house Other Medical History Have you received the Flu Vaccine for this season: No Have you received the Pneumonia Vaccine: No ROS Obtained: Yes other As per HPI Physical Exam General General appearance: alert and in no apparent distress Head Head exam: atraumatic and normocephalic Eye Eye exam: Present normal appearance Neck Neck exam: Present normal inspection Chest Chest inspection: Present normal inspection and symmetric chest wall rise Respiratory Respiratory exam: Present normal lung sounds bilaterally; Absent respiratory distress Cardiovascular Cardiovascular exam: Present regular rate and normal rhythm Abdominal Exam Abdominal exam: Present soft Neurological Exam Neurological exam: Present alert and oriented X3 Psychiatric Psychiatric exam: Present normal affect and normal mood Skin Skin exam: Present warm and dry Medical Decision Making Medical Records Medical records reviewed: Yes I reviewed the patient's medical records. Screening: Per USPSTF and CDC recommendations, given the prevalence of disease in our region, it is our hospital?s policy to screen for HIV and viral Hepatitis for all patients aged 18 and over and those with ongoing risk factors. Geremias Inquiry Pt receiving controlled substance: No Vital Signs: 05/27/24 15:02 05/27/24 15:30 05/27/24 15:45 Temperature 97.5 F L Temperature Source Oral Pulse Rate 74 72 Pulse Rate [Apical] 78 Respiratory Rate 18 13 16 Blood Pressure 97/48 L 97/48 L Blood Pressure [Left Arm] 112/49 L Blood Pressure Mean Blood Pressure Mean [Left Arm] 70 Blood Pressure Source [Left Arm] Automatic Cuff Blood Pressure Position [Left Arm] Sitting 02 Sat by Pulse Oximetry 98 99 99 Oxygen Delivery Method Room Air Room Air 05/27/24 16:31 05/27/24 17:01 05/27/24 17:31 Temperature Temperature Source Pulse Rate 75 83 81 Pulse Rate [Apical] Respiratory Rate 14 15 18 Blood Pressure 123/59 L 120/70 102/52 L Blood Pressure [Left Arm] Blood Pressure Mean 68 86 74 Blood Pressure Mean [Left Arm] Blood Pressure Source [Left Arm] Blood Pressure Position [Left Arm] 02 Sat by Pulse Oximetry 98 98 99 Oxygen Delivery Method Room Air Room Air Room Air Lab Data Lab Results 05/27/24 15:06: WBC 15.9 H, RBC 4.95, Hgb 15.6, Hct 45.0, MCV 91.0, MCH 31.6 H, MCHC 34.7, RDW 14.4, Plt Count 453 H, MPV 7.3 L, Neut % (Auto) 77.9, Lymph % (Auto) 14.5, [place] % (Auto) 5.6, Eos % (Auto) 1.5, Baso % (Auto) 0.6, Neut # (Auto) 12.4 H, Lymph # (Auto) 2.3, [place] # (Auto) 0.9, Eos # (Auto) 0.2, Baso # (Auto) 0.1, Total Counted 100, Neutrophils % (Manual) 71, Lymphocytes % (Manual) 21, Monocytes % (Manual) 8, Platelet Estimate Normal, RBC Morphology Normal, PT 10.1, INR 0.89 L, Sodium 132 L, Potassium 3.9, Chloride 100, Carbon Dioxide 24, Anion Gap 11.9, BUN 16, Creatinine 1.40 H, Estimated GFR 38 L, Est GFR ( Amer) 46 L, Glucose 138 H, Calcium 9.4, Magnesium 2.3, Total Bilirubin 0.7, AST 54 H, ALT 36, Alkaline Phosphatase 136 H, Total Protein 7.6, Albumin 4.2, Globulin 3.4 H, Albumin/Globulin Ratio 1.2, Lipase 257, HIV 1&2 Antibody Rapid Nonreactive 05/27/24 15:30: Blood Type A Positive, Antibody Screen Negative 05/27/24 15:54: Stl Aeromonas (PCR) Not detected, Stl C. cayetanensis PCR Not detected, Stool Rotavirus (PCR) Not detected, Stl Adenov F 40/41 PCR Not detected, Stool Astrovirus (PCR) Not detected, Stool Campylobacter PCR Not detected, Stl C.difficile Tox PCR Not detected, Stool Cryptosporidium PCR Not detected, Stl E.coli Shiga Tox PCR Not detected, Stool E coli O157 PCR Not detected, Stl Enterotoxigenic E PCR Not detected, Stool EPEC (PCR) Not detected, Stool EAEC (PCR) Not detected, Stl E. histolytica PCR Not detected, Stool Giardia Lamblia PCR Not detected, Stool Salmonella PCR Not detected, Stool Sapovirus (PCR) Not detected, Stl P. shigelloides PCR Not detected, Stl Shigella/EIEC PCR Not detected, St Y.enterocolitica PCR Not detected, Stool Vibrio (PCR) Not detected, Stl Vibrio cholerae PCR Not detected, Stl Norovirus GI/GII PCR Not detected 05/27/24 15:06 05/27/24 15:06 Orders (Tests/Meds): ED MEDICATIONS Generic Name Dose Route Start Last Admin Trade Name Freq PRN Reason Stop Dose Admin Albuterol Sulfate 2.5 mg 05/27/24 18:43 Albuterol 0.083% 2.5 Mg/3 Ml Neb IH 06/26/24 18:42 Q6HP PRN shortness of breath or wheezing Alprazolam 0.25 mg 05/27/24 18:43 Alprazolam 0.25mg Tablet PO 06/26/24 18:42 BID PRN anxiety Amitriptyline HCl 50 mg 05/27/24 21:00 05/27/24 21:17 Amitriptyline 50mg Tablet PO 06/26/24 20:59 50 mg HS XIOMY Administration Famotidine 20 mg 05/27/24 23:15 Famotidine 20mg/2ml Vial IV 06/26/24 23:14 BID XIOMY Gabapentin 300 mg 05/27/24 21:00 05/27/24 20:27 Gabapentin 300mg Capsule PO 06/26/24 20:59 300 mg HS XIOMY Administration Lactated Ringer's 1,000 mls @ 125 mls/hr 05/27/24 19:00 05/27/24 18:53 Lactated Ringer's 1000 Ml Bag IV 06/26/24 18:59 125 mls/hr .Q8H XIOMY Administration Ceftriaxone Sodium 1 gm/ 50 mls @ 100 mls/hr 05/27/24 22:45 05/27/24 23:09 Sodium Chloride IV 06/06/24 22:44 100 mls/hr Q24H XIOMY Administration Non-Formulary Medication 25 mg 05/27/24 21:00 05/27/24 20:28 Hydroxyzine Hcl PO 06/26/24 20:59 Not Given BID XIOMY Non-Formulary Medication 40 mg 05/28/24 09:00 Paroxetine Hcl PO 06/27/24 08:59 DAILY XIOMY Ondansetron HCl 4 mg 05/27/24 18:48 Ondansetron 4mg/2ml Vial IV 06/26/24 18:47 Q6HP PRN Nausea Prednisone 5 mg 05/28/24 09:00 Prednisone 5mg Tab PO 06/27/24 08:59 DAILY XIOMY Sodium Chloride 10 ml 05/27/24 15:16 Sodium Chloride 0.9% 10ml Flush Syringe IV 06/26/24 15:15 NEEDED PRN Maintain IV Site Sodium Chloride 10 ml 05/27/24 18:46 Sodium Chloride 0.9% 10ml Flush Syringe IV 06/26/24 18:45 NEEDED PRN Maintain IV Site Sodium Chloride 8 ml 05/27/24 23:05 Sodium Chloride 0.9% 10ml Vial IV 06/26/24 23:04 NEEDED PRN dilute famotidine Vancomycin HCl 125 mg 05/27/24 21:00 05/27/24 20:27 Vancomycin Hcl 50mg/Ml 150ml Kit PO 06/06/24 17:01 125 mg QID XIOMY Administration Discontinued Medications Generic Name Dose Route Start Last Admin Trade Name Dl PRN Reason Stop Dose Admin Iopamidol 80 ml 05/27/24 16:02 05/27/24 16:03 Iopamidol-370 (76%);100ml Bottle IV 05/27/24 16:03 80 ml ONCE ONE Administration Ondansetron HCl 4 mg 05/27/24 15:24 05/27/24 15:42 Ondansetron 4mg/2ml Vial IV 05/27/24 15:25 4 mg ONCE ONE Administration Sodium Chloride 50 ml 05/27/24 16:02 05/27/24 16:03 0.9 % Sodium Chloride 50 Ml Vial IV 05/27/24 16:03 50 ml ONCE ONE Administration Sodium Chloride 10 ml 05/27/24 16:02 05/27/24 16:03 Sodium Chloride 0.9% 10ml Syr (Rad Only) IV 05/27/24 16:03 10 ml ONCE ONE Administration ORDERS Category Date Time Status Type and Screen Stat BBK 05/27/24 15:[address] angio abdomen pelvis Stat Cat Scan 05/27/24 15:19 Completed POCUS Point of Care (ER Only) Stat Exams 05/27/24 15:11 Completed CMP [Comprehensive Metabolic Panel] Stat Lab 05/27/24 15:06 Completed CRP [C-Reactive Protein] AMLAB Lab 05/28/24 06:00 Ordered Complete Blood Count Auto Diff AMLAB Lab 05/28/24 06:00 Ordered Complete Blood Count Auto Diff Stat Lab 05/27/24 15:06 Completed Comprehensive Metabolic Panel AMLAB Lab 05/28/24 06:00 Ordered Diarrhea 23 Panel, PCR Stat Lab 05/27/24 15:54 Completed Erythrocyte Sedimentation Rate AMLAB Lab 05/28/24 06:00 Ordered HIV (1&2) Antibody Rapid Stat Lab 05/27/24 15:06 Completed Hep C Ab with Reflex to RNA Stat Lab 05/27/24 15:06 Received Lipase Stat Lab 05/27/24 15:06 Completed MAG [Magnesium] Stat Lab 05/27/24 15:06 Completed Magnesium AMLAB Lab 05/28/24 06:00 Ordered PT INR [Prothrombin Time INR] Stat Lab 05/27/24 15:06 Completed Urinalysis and Microscopic Stat Lab 05/27/24 19:40 Completed Urine Culture Stat Micro 05/27/24 19:40 Received Medical Decision Narrative: Patient with history and exam per above presenting for evaluation of hematochezia, diarrhea Diagnoses considered include lower GI bleed, anal fissure, acute kidney injury, infectious diarrhea, among others ED workup and treatment included: ED MEDICATIONS Generic Name Dose Route Start Last Admin Trade Name Freq PRN Reason Stop Dose Admin Albuterol Sulfate 2.5 mg 05/27/24 18:43 Albuterol 0.083% 2.5 Mg/3 Ml Neb IH 06/26/24 18:42 Q6HP PRN shortness of breath or wheezing Alprazolam 0.25 mg 05/27/24 18:43 Alprazolam 0.25mg Tablet PO 06/26/24 18:42 BID PRN anxiety Amitriptyline HCl 50 mg 05/27/24 21:00 05/27/24 21:17 Amitriptyline 50mg Tablet PO 06/26/24 20:59 50 mg HS XIOMY Administration Gabapentin 300 mg 05/27/24 21:00 05/27/24 20:27 Gabapentin 300mg Capsule PO 06/26/24 20:59 300 mg HS XIOMY Administration Lactated Ringer's 1,000 mls @ 125 mls/hr 05/27/24 19:00 05/27/24 18:53 Lactated Ringer's 1000 Ml Bag IV 06/26/24 18:59 125 mls/hr .Q8H XIOMY Administration Non-Formulary Medication 25 mg 05/27/24 21:00 05/27/24 20:28 Hydroxyzine Hcl PO 06/26/24 20:59 Not Given BID XIOMY Non-Formulary Medication 40 mg 05/28/24 09:00 Paroxetine Hcl PO 06/27/24 08:59 DAILY XIOMY Ondansetron HCl 4 mg 05/27/24 18:48 Ondansetron 4mg/2ml Vial IV 06/26/24 18:47 Q6HP PRN Nausea Prednisone 5 mg 10/25/24 09:00 Prednisone 5mg Tab PO 06/27/24 08:59 DAILY XIOMY Sodium Chloride 10 ml 05/27/24 15:16 Sodium Chloride 0.9% 10ml Flush Syringe IV 06/26/24 15:15 NEEDED PRN Maintain IV Site Sodium Chloride 10 ml 05/27/24 18:46 Sodium Chloride 0.9% 10ml Flush Syringe IV 06/26/24 18:45 NEEDED PRN Maintain IV Site Vancomycin HCl 125 mg 05/27/24 21:00 05/27/24 20:27 Vancomycin Hcl 50mg/Ml 150ml Kit PO 06/06/24 17:01 125 mg QID XIOMY Administration Discontinued Medications Generic Name Dose Route Start Last Admin Trade Name Freq PRN Reason Stop Dose Admin Iopamidol 80 ml 05/27/24 16:02 05/27/24 16:03 Iopamidol-370 (76%);100ml Bottle IV 05/27/24 16:03 80 ml ONCE ONE Administration Ondansetron HCl 4 mg 05/27/24 15:24 05/27/24 15:42 Ondansetron 4mg/2ml Vial IV 05/27/24 15:25 4 mg ONCE ONE Administration Sodium Chloride 50 ml 05/27/24 16:02 05/27/24 16:03 0.9 % Sodium Chloride 50 Ml Vial IV 05/27/24 16:03 50 ml ONCE ONE Administration Sodium Chloride 10 ml 05/27/24 16:02 05/27/24 16:03 Sodium Chloride 0.9% 10ml Syr (Rad Only) IV 05/27/24 16:03 10 ml ONCE ONE Administration ORDERS Category Date Time Status Type and Screen Stat BBK 05/27/24 15:[address] angio abdomen pelvis Stat Cat Scan 05/27/24 15:19 Completed POCUS Point of Care (ER Only) Stat Exams 05/27/24 15:11 Completed CMP [Comprehensive Metabolic Panel] Stat Lab 05/27/24 15:06 Completed CRP [C-Reactive Protein] AMLAB Lab 05/28/24 06:00 Ordered Complete Blood Count Auto Diff AMLAB Lab 05/28/24 06:00 Ordered Complete Blood Count Auto Diff Stat Lab 05/27/24 15:06 Completed Comprehensive Metabolic Panel AMLAB Lab 05/28/24 06:00 Ordered Diarrhea 23 Panel, PCR Stat Lab 05/27/24 15:54 Completed Erythrocyte Sedimentation Rate AMLAB Lab 05/28/24 06:00 Ordered HIV (1&2) Antibody Rapid Stat Lab 05/27/24 15:06 Completed Hep C Ab with Reflex to RNA Stat Lab 05/27/24 15:06 Received Lipase Stat Lab 05/27/24 15:06 Completed MAG [Magnesium] Stat Lab 05/27/24 15:06 Completed Magnesium AMLAB Lab 05/28/24 06:00 Ordered PT INR [Prothrombin Time INR] Stat Lab 05/27/24 15:06 Completed Urinalysis and Microscopic Stat Lab 05/27/24 19:40 Completed Urine Culture Stat Micro 05/27/24 19:40 Received Labs were independently interpreted by me, significant for acute kidney injury, hemoglobin within normal limits Imaging was independently visualized and interpreted by me, significant for no acute surgical pathology Please refer to radiology report for full details. Patient will benefit for admission for further management of acute kidney injury in the setting of diarrheal illness. He was accepted for admission by hospitalist. Critical Care Critical Care Time Critical Care Time: No
--- NOTE | 2024-05-27 15:12 | PC.NURSE ---
DR CALVO AT BEDSIDE
--- NOTE | 2024-05-27 15:19 | CT_ITS ---
PROCEDURE INFORMATION: Exam: CTA Abdomen and Pelvis With Contrast Exam date and time: 05/27/2024 4:03 PM Age: 63 years old Clinical indication: Other: Diarrhea; Additional info: Concern for lgib, diarrhea TECHNIQUE: Imaging protocol: Computed tomographic angiography of the abdomen and pelvis with contrast. Exam focused on the arteries. 3D rendering (Not supervised by radiologist): MIP and/or 3D reconstructed images were created by the technologist. Radiation optimization: All CT scans at this facility use at least one of these dose optimization techniques: automated exposure control; mA and/or kV adjustment per patient size (includes targeted exams where dose is matched to clinical indication); or iterative reconstruction. Contrast material: [id number]; Contrast volume: 80 ml; Contrast route: INTRAVENOUS (IV); COMPARISON: CT ANGIO ABDOMEN PELVIS 05/27/2024 4:03 PM FINDINGS: Aorta: No aortic aneurysm. No aortic dissection. Celiac trunk and mesenteric arteries: No occlusion or significant stenosis. Renal arteries: No occlusion or significant stenosis. Right iliac arteries: No occlusion or significant stenosis. Left iliac arteries: No occlusion or significant stenosis. Liver: No mass. Gallbladder and biliary ducts: Unremarkable. No calcified stones. No ductal dilation. Pancreas: Unremarkable. No mass. No ductal dilation. Spleen: Unremarkable. No splenomegaly. Adrenal glands: Unremarkable. No mass. Kidneys and ureters: Unremarkable. No solid mass. No hydronephrosis. Stomach and bowel: Pancolitis. Appendix: No evidence of appendicitis. Intraperitoneal space: Unremarkable. No free air. No significant fluid collection. Lymph nodes: Unremarkable. No enlarged lymph nodes. Urinary bladder: Unremarkable. No mass. Reproductive: Unremarkable as visualized. Bones/joints: No acute fracture. Soft tissues: Unremarkable. IMPRESSION: Pancolitis.
[2024-05-27 15:20] LABS: Basophils # 0.1 K/mm3 (0-0.2); Basophils % 0.6 % (0.1-2.0); Eosinophils # 0.2 K/mm3 (0.0-0.4); Eosinophils % 1.5 % (0.1-12.0); Hemoglobin 15.6 g/dL (12.2-16.2); Lymphocytes # 2.3 K/mm3 (0.7-4.5); Lymphocytes % 14.5 % (10-50); Mean Corpuscular HGB Conc 34.7 g/dL (31.8-35.4); Mean Corpuscular Hemoglobin 31.6 pg (27.0-31.2); Mean Platelet Volume 7.3 fl (7.4-10.4); Monocytes # 0.9 K/mm3 (0.1-1.0); Monocytes % 5.6 % (1.7-9.3); Neutrophils # 12.4 K/mm3 (1.8-7.8); Neutrophils % 77.9 % (37.0-80.0); Platelet Count 453 K/mm3 (142-424); Red Blood Count 4.95 M/mm3 (4.20-5.40); Red Cell Distribution Width 14.4 % (11.5-17.5); White Blood Count 15.9 K/mm3 (4.8-10.8)
[2024-05-27 15:21] LABS: Albumin Level 4.2 g/dl (3.5-5.0); Chloride 100 mmol/L (98-107); MANUAL DIFFERENTIAL MANUAL DIFFERENTIAL (MANUAL DIFF); Potassium 3.9 mmoL/L (3.5-5.1); Sodium 132 mmol/L (136-145)
[2024-05-27 15:24] LABS: Alanine Aminotransferase 36 U/L (12-78); Albumin/Globulin Ratio 1.2 (1.1-1.8); Alkaline Phosphatase 136 U/L (38-126); Anion Gap 11.9 mEq/L (5-15); Aspartate Amino Transferase 54 U/L (14-36); Bilirubin,Total 0.7 mg/dl (0.2-1.3); Blood Urea Nitrogen 16 mg/dl (7-17); Calcium 9.4 mg/dl (8.4-10.2); Carbon Dioxide 24 mmol/L (22.0-30.0); Estimated Glomerular Filt Rate 38 ml/min (>60); GFR (African American) 46 ML/MIN (>60); Globulin 3.4 g/dL (1.3-3.2); Glucose 138 mg/dl (74-100); Total Protein,Serum 7.6 g/dl (6.3-8.2)
--- NOTE | 2024-05-27 15:24 | ECG_ITS ---
APPROVED REPORT Exam: Resting ECG HR:72 bpm ECG Measurements Heart Rate 72 AXES IN 160 P 24 QRSd 102 QRS 42 QT 410 T 62 QTc 435 Conclusion SINUS RHYTHM ABNORMAL ECG Electronically signed by : RAVINDRA CALVO, 05/27/2024 22:57:32
[2024-05-27 15:32] LABS: Lipase 257 U/L (23-300)
[2024-05-27 15:33] LABS: Magnesium 2.3 mg/dl (1.6-2.3)
[2024-05-27 15:38] LABS: INR 0.89 (0.9-1.1); Prothrombin Time 10.1 seconds (10.1-12.5)
[2024-05-27] MEDS: ONDANSETRON 4MG/2ML VIAL 4 MG IV (15:42)
[2024-05-27 15:55] LABS: Lymphocytes % 21 % (10-50); Monocytes % 8 % (2-9); Neutrophils % 71 % (42-76); Total Cells Counted 100
[2024-05-27 15:56] LABS: Platelet Estimate Normal; RBC Morphology Normal
--- NOTE | 2024-05-27 15:57 | PC.NURSE ---
PT is out of room at this time, PT is gone to CT.
[2024-05-27 15:59] LABS: Adenovirus F 40/41, stool Not Detected (NotDetected); Astrovirus Not Detected (NotDetected); Campylobacter Not Detected (NotDetected); Clostridium Difficile A/B, PCR Not Detected (NotDetected); Cryptosporidium Not Detected (NotDetected); Cyclospora Cayetanesis Not Detected (NotDetected); Entamoeba histolytica Not Detected (NotDetected); Enteroaggregative E coli Not Detected (NotDetected); Enteropathogenic E coli Not Detected (NotDetected); Enterotoxigenic E coli Not Detected (NotDetected); Giardia lamblia Not Detected (NotDetected); Norovirus Not Detected (NotDetected); Plesimonas Shigalloides, PCR Not Detected (NotDetected); Rotavirus A Not Detected (NotDetected); Salmonella, PCR Not Detected (NotDetected); Sapovirus Not Detected (NotDetected); Shiga-like toxin E coli Not Detected (NotDetected); Shigella Enterovasive E coli Not Detected (NotDetected); Vibrio Cholerae Not Detected (NotDetected); Vibrio, PCR Not Detected (NotDetected); Yersinia Entercolitica, PCR Not Detected (NotDetected)
[2024-05-27] MEDS: IOPAMIDOL-370 (76%);100ML BOTTLE 80 ML IV (16:03)
[2024-05-27] MEDS: 0.9 % SODIUM CHLORIDE 50 ML VIAL IV (16:03)
[2024-05-27] MEDS: SODIUM CHLORIDE 0.9% 10ML SYR (RAD ONLY) 10 ML IV (16:03)
[2024-05-27 16:43] LABS: HIV (1&2) Antibody Rapid NONREACTIVE (NONREACTIVE)
--- NOTE | 2024-05-27 16:59 | PC.NURSE ---
Rounded on patient. Patient voiced that she did not need anything at this time. Call light is in reach of the patient.
--- NOTE | 2024-05-27 17:11 | PC.NURSE ---
attempted to obtain urine sample. noted to be bloody stool contaminating urine sample
--- NOTE | 2024-05-27 17:44 | PC.NURSE ---
dr craig speaking with hospitalist
--- NOTE | 2024-05-27 17:45 | PC.NURSE ---
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
--- NOTE | 2024-05-27 17:46 | P.HP_ITS ---
History of Present Illness *Admission Date: 05/27/24 *Reason for visit:: Nausea vomiting diarrhea *History of present illness: Mrs. Eagle is a 63 yo F with history of Sjogren's, anxiety, on immunosuppressive therapy daily. She presented to the ER with complaint of persistent nausea, vomiting, diarrhea. Having some cramping that was intense and began today. Had symptoms shortly thereafter. Symptoms began suddenly. She has become more weak as the days gone on. Has felt clammy and sweaty today. Scant amount of blood in her stool per her report. Denies fever. Did feel very weak however. Family notes that she was pale in her hands and feet with concern for possible cyanosis. Brought to the ER because of intensity of symptoms. History of similar symptoms a year ago, thought to be food poisoning at that time. Workup in the ER concerning for leukocytosis, kidney injury with elevated creatinine, and CT with pancolitis. Diarrhea panel obtained and still pending. Responded to liter bolus with some improvement and weakness. Family reports her color is improved. Medicine consulted for admission and further management. On evaluation, she describes her abdominal pain as being localized to the lower abdomen and associated with cramping during diarrhea. She denies any pain during bowel movements. She also reports experiencing pain in her chest that radiates to her back, but this pain was only present after vomiting and retching. Of note, takes hydroxychloroquine, steroids, Xolair regularly for immune suppression given her history of Sjogren's. [facility] Disclaimer: The information contained in this section may have been updated after the patient was seen, as this information can be updated by other users. Medical History (Updated 05/27/24 @ 18:47 by Garcia Yu MD) Sjogrens syndrome HTN (hypertension) Acute dyspnea PNA (pneumonia) Traumatic tear of left rotator cuff Decreased range of motion of left shoulder Injury of left shoulder Left shoulder pain Anxiety Iron deficiency anemia Vitamin B12 deficiency Abnormal electrocardiogram [ECG] [EKG] Hormone replacement therapy (HRT) Chest pain GERD (gastroesophageal reflux disease) Fibromyalgia Sinusitis Hyponatremia Surgical History H/O shoulder surgery History of delivery S/P ORIF (open reduction internal fixation) fracture Family History Mother Heart attack Social History Smoking Status: Never smoker alcohol intake: never substance use type: denies use current occupational status: retired Travel in the last 8 weeks: None household members: family housing: house Other Medical History Have you received the Flu Vaccine for this season: No Have you received the Pneumonia Vaccine: No Review of Systems Review of Systems Review of systems (narrative): 14 point review of systems performed, pertinent positives and negatives as per [facility] Meds Home Medications and Allergies Home Medications ?Medication ?Instructions ?Recorded ?Confirmed ?Type aspirin 81 mg tablet,delayed 81 mg PO DAILY Heart Health 11/18/17 05/27/24 History release cetirizine 10 mg capsule 10 mg PO DAILY Allergy Symptoms 11/18/17 05/27/24 History esomeprazole magnesium 20 mg 20 mg PO DAILY Acid Reflux 11/18/17 05/27/24 History capsule,delayed release gabapentin 300 mg capsule 300 mg PO HS Pain 02/19/22 05/27/24 History epinephrine 0.3 mg/0.3 mL 0.3 mg IM Q5-15M PRN Allergic 02/21/23 05/27/24 History injection, auto-injector Reaction hydroxychloroquine 200 mg tablet 200 mg PO BID 02/21/23 05/27/24 History (Plaquenil) methocarbamol 500 mg tablet 500 mg PO HS Pain 02/21/23 05/27/24 History prednisone 5 mg tablet 2.5 mg PO DAILY 02/21/23 05/27/24 History omalizumab 150 mg/mL subcutaneous 150 mg SQ Q4W 02/24/23 05/27/24 History syringe (Xolair) fluticasone propionate 50 1 spray intranasal DAILYP PRN 05/13/23 05/27/24 History mcg/actuation nasal Allergy Symptoms spray,suspension albuterol sulfate 2.5 mg/3 mL 2.5 mg (3 mL) inhalation Q4-6H PRN 10/27/23 05/27/24 Rx (0.083 %) solution for nebulization shortness of breath or wheezing #90 mL estradiol 1 mg tablet 1 mg PO DAILY #90 tabs 11/19/23 05/27/24 Rx lisinopril 40 mg tablet 20 mg PO BID 01/02/24 05/27/24 History amitriptyline 50 mg tablet See Rx Instructions .Route 01/20/24 05/27/24 Rx .COMPLEX #90 tabs paroxetine HCl 40 mg tablet 40 mg PO DAILY #90 tabs 01/20/24 05/27/24 Rx triamterene 37.5 1 tab PO DAILY Fluid 90 days #90 01/20/24 05/27/24 Rx mg-hydrochlorothiazide 25 mg tablet tabs ibuprofen 800 mg tablet 800 mg PO Q8HP PRN Mild Pain 03/22/24 05/27/24 Rx (Scale Score 1-4) #90 tabs hydroxyzine HCl 25 mg tablet 25 mg PO BID 03/26/24 05/27/24 History progesterone micronized 100 mg 100 mg PO DAILY #90 caps 03/26/24 05/27/24 Rx capsule (Prometrium) albuterol 90 mcg-budesonide 80 2 inh inhalation 6XD PRN shortness 05/04/24 05/27/24 Rx mcg/actuation HFA aerosol inhaler of breath #10.7 grams (Airsupra) carvedilol 12.5 mg tablet 12.5 mg PO BID #60 tabs 05/10/24 05/27/24 Rx alprazolam 0.25 mg tablet 0.25 mg PO BID PRN anxiety #60 tabs 05/11/24 05/27/24 Rx simvastatin 20 mg tablet See Rx Instructions .Route 05/11/24 05/27/24 Rx .COMPLEX #90 tabs albuterol 90 mcg-budesonide 80 2 puff inhalation DIRECTED 05/27/24 05/27/24 History mcg/actuation HFA aerosol inhaler (Airsupra) New Prescriptions to Start Prescriptions: Allergies Allergy/AdvReac Type Severity Reaction Status Date / Time latex Allergy rash/hives Verified 05/27/24 18:50 oxycodone Allergy Rash Verified 05/27/24 18:50 Exam Data for Last 24 hours Vital signs and Labs for Last 24 Hours: Temp Pulse Resp BP Pulse Ox O2 Del Method 97.5 F L 81 18 102/52 L 99 Room Air 05/27/24 15:02 05/27/24 17:31 05/27/24 17:31 05/27/24 17:31 05/27/24 17:31 05/27/24 17:31 Laboratory Results - last 24 hr 05/27/24 15:06: WBC 15.9 H, RBC 4.95, Hgb 15.6, Hct 45.0, MCV 91.0, MCH 31.6 H, MCHC 34.7, RDW 14.4, Plt Count 453 H, MPV 7.3 L, Neut % (Auto) 77.9, Lymph % (Auto) 14.5, Bay % (Auto) 5.6, Eos % (Auto) 1.5, Baso % (Auto) 0.6, Neut # (Auto) 12.4 H, Lymph # (Auto) 2.3, Bay # (Auto) 0.9, Eos # (Auto) 0.2, Baso # (Auto) 0.1, Total Counted 100, Neutrophils % (Manual) 71, Lymphocytes % (Manual) 21, Monocytes % (Manual) 8, Platelet Estimate Normal, RBC Morphology Normal, PT 10.1, INR 0.89 L, Sodium 132 L, Potassium 3.9, Chloride 100, Carbon Dioxide 24, Anion Gap 11.9, BUN 16, Creatinine 1.40 H, Estimated GFR 38 L, Est GFR ( Amer) 46 L, Glucose 138 H, Calcium 9.4, Magnesium 2.3, Total Bilirubin 0.7, AST 54 H, ALT 36, Alkaline Phosphatase 136 H, Total Protein 7.6, Albumin 4.2, Globulin 3.4 H, Albumin/Globulin Ratio 1.2, Lipase 257, HIV 1&2 Antibody Rapid Nonreactive 05/27/24 15:30: Blood Type A Positive, Antibody Screen Negative I & O for Last 24 hours: Intake & Output 05/24/24 05/25/24 05/26/24 05/27/24 23:59 23:59 23:59 23:59 Weight 92.986 kg Constitutional Constitutional: mild distress, obese and cooperative *Routine HEENT Exam Head: Present normocephalic Eye: Present EOMI and PERRL ENT: Present mucous membranes moist *Routine Neck Exam Neck: Present supple; Absent lymphadenopathy *Routine Respiratory Exam Respiratory: Present CTA bilaterally; Absent rhonchi, wheezes or crackles *Routine Cardiovascular Exam Cardiovascular: Present RRR *Routine Abdominal Exam Abdominal: Present soft and tenderness (Minimal, lower abdomen.); Absent normoactive bowel sounds (Hypoactive sounds), distended or rebound *Routine Rectal Exam Rectal:: deferred *Routine Genitalia Exam Genitalia:: deferred *Routine Extremities Exam Extremities: Absent cyanosis, clubbing or edema *Routine Skin Exam Skin: Present pallor and warm; Absent rash *Routine Neurological Exam Neurological: Present alert, oriented X3 and moving all extremities; Absent altered mental status Assessment and Plan *Assessment and plan (1) Pancolitis: Status: Acute Category: Medical Code(s): K51.00 - Ulcerative (chronic) pancolitis without complications (2) MAC (acute kidney injury): Status: Acute Category: Medical Code(s): N17.9 - Acute kidney failure, unspecified (3) Immunocompromised: Status: Acute Category: Medical Code(s): D84.9 - Immunodeficiency, unspecified (4) Sjogrens syndrome: Status: Chronic Qualifiers: Sjogren organ or system involvement: unspecified organ involvement Qualified Code(s): M35.00 - Sjogren syndrome, unspecified Category: Medical Code(s): M35.00 - Sjogren syndrome, unspecified (5) HTN (hypertension): Status: Acute Qualifiers: Hypertension type: primary hypertension Qualified Code(s): I10 - Essential (primary) hypertension Category: Medical Code(s): I10 - Essential (primary) hypertension (6) Anxiety: Status: Acute Category: Medical Code(s): F41.9 - Anxiety disorder, unspecified Plan 63-year-old female on immunosuppressive therapy for Sjogren's who presents with acute onset of nausea vomiting diarrhea. Workup in the ER concerning for colitis with MAC. Discussed case with ER physician, request admission for treatment with IV fluids and consideration for antibiotics given severity of condition when patient came into the hospital. I agreed to admit for further management. Responding to fluids at this time. Received a liter in the ER. Awaiting stool panel. Given immunocompromise state, recent antibiotic exposure, use of PPI, will initiate empiric therapy for C. difficile with oral vancomycin while awaiting results. Urine also pending. Problems addressed as follows: Pancolitis Nausea vomiting and bloody diarrhea -Stool panel pending. Initiate empiric vancomycin as above. ATLAS score of 2. Holding p.o. antibiotics pending GI panel. -Urinalysis pending. Will consider antibiotics pending results. -White count elevated to 15, concern for demarginalization for sign of infection. Hemoglobin 15.6. Repeat CBC, CMP, magnesium ordered for the morning. -Potassium 3.9, magnesium 2.3. Finally had urine output after arriving to the hospital and getting fluids. Liver function stable and normal with bili of 0.7, AST ALT 54 and 36 respectively. Alk phos 136. -Advance diet as tolerated. Continue maintenance IV fluids at 125 cc an hour overnight -Complaining of heartburn after vomiting. Will initiate famotidine 20 mg IV twice daily. Hold on PPI in the setting of concern for C. difficile. -Per my review of CT of abdomen, paucity of gas in her colon. Diffuse inflammation of colon. No obstruction or air-fluid levels and small intestines MAC:Baseline creatinine 0.6-0.7. Creatinine elevated to 1.4 on presentation. Repeat CMP ordered for the morning to monitor for improvement with IV fluids Anxiety: Continue alprazolam 0.25 mg twice daily as needed, amitriptyline 50 mg nightly, hydroxyzine 25 mg twice daily as needed, and Paxil 40 mg daily Obesity complicates all aspects of her care Holding her hormone therapy during admission along with her blood pressure meds given her soft blood pressure and MAC Sjogren's: Continue prednisone, increase to 5 mg daily during her stress state. Will hold hydroxychloroquine and Xolair. Full code Regular diet holding anticoagulation in setting of BRBPR
--- NOTE | 2024-05-27 18:30 | PC.NURSE ---
REPORT CALLED TO STELLA RASHEED
[2024-05-27] MEDS: LACTATED RINGERS 1000ML 1,000 ML 125 ML IV (18:53)
--- NOTE | 2024-05-27 18:56 | PC.NURSE ---
Patient arrived to floor via wheelchair from ED at 18:46.
[2024-05-27 19:48] LABS: Appearance,Urine CLEAR (Clear); Blood, Urine 1+ (Negative); Color,Urine YELLOW (Yellow); Glucose,Urine (UA) Negative (Negative); Ketones,Urine Negative (Negative); Leukocyte Esterase,Urine Negative (Negative); Nitrate,Urine Negative (Negative); PH,Urine 5.5 (5.0-8.5); Protein,Urine 1+ (Negative); Specific Gravity, Urine 1.015 (1.005-1.030)
[2024-05-27 19:49] LABS: Microscopic, Urine URINE MICROSCOPIC (MICROSCOPIC)
[2024-05-27 19:53] LABS: Bilirubin,Urine Negative (Negative)
[2024-05-27 20:09] LABS: WBC,Urine TNTC #/hpf (0-3)
[2024-05-27 20:10] LABS: Bacteria,Urine 4+ /lpf
[2024-05-27] MEDS: VANCOMYCIN HCL 50MG/ML 150ML KIT 125 MG PO (20:27)
[2024-05-27] MEDS: GABAPENTIN 300MG CAPSULE 300 MG PO (20:27)
[2024-05-27] MEDS: AMITRIPTYLINE 50MG TABLET 50 MG PO (21:17)
[2024-05-27] MEDS: CEFTRIAXONE SODIUM 1 GM in 0.9 % SODIUM CHLORIDE 50 ML IV (23:09)
[2024-05-27] MEDS: FAMOTIDINE 20MG/2ML VIAL 20 MG IV (23:40)
[2024-05-27] MEDS: SODIUM CHLORIDE 0.9% 10ML VIAL 8 ML IV (23:40)
[2024-05-28 04:00] VITALS: BP 123/61; PULSE 77; RESP 16; TEMP 36.9; O2SAT 97; BMI 34.6
[2024-05-28] MEDS: LACTATED RINGERS 1000ML 1,000 ML 125 ML IV (04:58)
[2024-05-28 05:56] LABS: HCV Ab Non Reactive (Non Reactive)
[2024-05-28 06:52] LABS: Albumin Level 3.1 g/dl (3.5-5.0); Chloride 97 mmol/L (98-107)
[2024-05-28 06:53] LABS: Potassium 3.5 mmoL/L (3.5-5.1); Sodium 127 mmol/L (136-145)
[2024-05-28 06:55] LABS: Alanine Aminotransferase 25 U/L (12-78); Alkaline Phosphatase 86 U/L (38-126); Anion Gap 7.5 mEq/L (5-15); Aspartate Amino Transferase 37 U/L (14-36); Bilirubin,Total 0.3 mg/dl (0.2-1.3); Blood Urea Nitrogen 17 mg/dl (7-17); Carbon Dioxide 26 mmol/L (22.0-30.0); Creatinine Clearance Estimated 65 mL/min (50-200); Estimated Glomerular Filt Rate 41 ml/min (>60); GFR (African American) 50 ML/MIN (>60)
[2024-05-28 06:56] LABS: Albumin/Globulin Ratio 1.2 (1.1-1.8); Calcium 8.2 mg/dl (8.4-10.2); Globulin 2.6 g/dL (1.3-3.2); Glucose 126 mg/dl (74-100); Magnesium 1.7 mg/dl (1.6-2.3); Total Protein,Serum 5.7 g/dl (6.3-8.2)
[2024-05-28 07:03] LABS: C-Reactive Protein 27.6 mg/L (0-4)
[2024-05-28 07:24] LABS: Basophils % 0.4 % (0.1-2.0); Eosinophils # 0.2 K/mm3 (0.0-0.4); Eosinophils % 2.5 % (0.1-12.0); Hematocrit 33.5 % (37.0-47.0); Lymphocytes # 2.7 K/mm3 (0.7-4.5); Lymphocytes % 42.6 % (10-50); Mean Corpuscular HGB Conc 34.4 g/dL (31.8-35.4); Mean Corpuscular Hemoglobin 30.9 pg (27.0-31.2); Mean Platelet Volume 7.3 fl (7.4-10.4); Monocytes # 0.5 K/mm3 (0.1-1.0); Monocytes % 8.1 % (1.7-9.3); Neutrophils # 2.9 K/mm3 (1.8-7.8); Neutrophils % 46.4 % (37.0-80.0); Platelet Count 316 K/mm3 (142-424); Red Blood Count 3.72 M/mm3 (4.20-5.40); Red Cell Distribution Width 14.5 % (11.5-17.5); White Blood Count 6.2 K/mm3 (4.8-10.8)
--- NOTE | 2024-05-28 07:32 | HMH.PHAINT1 ---
Pharmacy Intervention Comments: Home medication list verified using LIST FROM OUTPATIENT PHARMACY
[2024-05-28 08:00] VITALS: BP 152/75; PULSE 72; RESP 18; TEMP 37.4; O2SAT 95
[2024-05-28 08:34] LABS: Erythrocyte Sedimentation Rate 23 mm/hr (0-30)
[2024-05-28] MEDS: hydrOXYzine pamoate 25MG CAPSULE 25 MG PO ×2 (08:42→20:16)
[2024-05-28] MEDS: FAMOTIDINE 20MG/2ML VIAL 20 MG IV ×2 (08:42→20:16)
[2024-05-28] MEDS: predniSONE 5MG TAB 5 MG PO (08:42)
[2024-05-28] MEDS: PARoxetine 20MG TABLET 40 MG PO (08:42)
[2024-05-28 08:54] LABS: Hemoglobin 11.5 g/dL (12.2-16.2)
[2024-05-28] MEDS: ALPRAZolam 0.25MG TABLET 0.25 MG PO (08:58)
--- NOTE | 2024-05-28 09:54 | HMH.OTEV ---
OT Inpatient Evaluation Rehab OT IP Evaluation Start: 05/28/24 08:05 Freq: ONCE Status: Active Protocol: Document 05/28/24 09:45 [facility] (Rec: 05/28/24 09:53 [facility] [id number]) Rehab OT IP Assessment Subjective History Pt oriented x3 on arrival. Pt agreeable to engage in evaluation. Pt admitted to [facility] on 05/27/24 due to nausea, vomiting, and diarrhea. Pt history and physical report : Mrs. Eagle is a 63 yo F with history of Sjogren's, anxiety, on immunosuppressive therapy daily. She presented to the ER with complaint of persistent nausea, vomiting, diarrhea. Having some cramping that was intense and began today. Had symptoms shortly thereafter. Symptoms began suddenly. She has become more weak as the days gone on. Has felt clammy and sweaty today. Scant amount of blood in her stool per her report. Denies fever. Did feel very weak however. Family notes that she was pale in her hands and feet with concern for possible cyanosis. Brought to the ER because of intensity of symptoms. History of similar symptoms a year ago, thought to be food poisoning at that time. Workup in the ER concerning for leukocytosis, kidney injury with elevated creatinine, and CT with pancolitis. Diarrhea panel obtained and still pending. Responded to liter bolus with some improvement and weakness. Family reports her color is improved. Medicine consulted for admission and further management. On evaluation, she describes her abdominal pain as being localized to the lower abdomen and associated with cramping during diarrhea. She denies any pain during bowel movements. She also reports experiencing pain in her chest that radiates to her back, but this pain was only present after vomiting and retching. Of note, takes hydroxychloroquine, steroids, Xolair regularly for immune suppression given her history of Sjogren's. Subjective I feel much better than I did . Prior to being in the hospital , pt lived at home with her . Pt is normally independent with all ADLs and IADLs. Pt does not require any type of AE during functional transfers or ADLs. Pt also still drives. Objective Patient Orientation Person,Place,Birthday Right Upper Extremity Gross ROM WFL Left Upper Extremity Gross ROM WFL Bed Mobility bed mobility-scooting,bed mobility - supine/sit Assist Level Supervision/Stand by Transfer Training Sit/Stand Transfer Assist Level Supervision/Stand by Chair Transfer Assistive Devices None Lower Body Dressing Ability Standby Assistance Performing Toilet Hygiene Ability Standby Assistance Overall Commode/Toilet Transfer Ability Standby Assistance Commode/Toilet Transfer Technique Sit to/from Ambulatory Rehab OT IP prob,goals,plan Problems Date of Evaluation: 05/28/24 Rehab Potential Rehab Potential Innapropriate for Skilled Therapy Discharge Plan OT Discharge Plan Pt appears to be at baseline with functional transfers and ADL independence. Pt can discharge home with her once she is medically stable per physician. Eval Complexity Eval Charge Codes 75992 - Low Complexity PHYSICIAN CERTIFICATION: I certify the specified therapy services for Caron Eagle are required, authorized, and reviewed every 30 days.
--- NOTE | 2024-05-28 10:09 | HMH.PTEV ---
Physical Therapy Evaluation Rehab PT IP Evaluation Start: 05/28/24 08:05 Freq: ONCE Status: Active Protocol: Document 05/28/24 09:42 [facility] (Rec: 05/28/24 10:09 [facility] [id number]) Subjective/History History History Mrs. Eagle is a 63 yo F with history of Sjogren's, anxiety, on immunosuppressive therapy daily. Chief c/o among admission include of persistent nausea, vomiting, diarrhea. Having some cramping that was intense and began yesterday. Pt lives at home w/ . Patient is independent in all ADL activities and does not use an assistive device. Subjective Subjective Pt states she is feeling much better today. Pt states she was able to get up last night but had mild dizziness transitioning from supine to sit. Pt denies any reports of dizziness or pain at this date . Rehab PT IP Eval Objective Appearance Patient Behavior Appropriate,Cooperative Patient Orientation Person,Place,Birthday Difficulty following instructions none Speech Pattern Clear,Appropriate,Coherent Ambulation Patient Able to Ambulate Yes Ambulation Observation IP General Gait Pattern Observation No Deviations/Normal Ambulation Distance (feet) 100 Ambulation Assistive Device None Ambulation Ability Contact Guard/Hand Hold Balance Ability to Arise Able, uses arms to help Sitting Balance Steady, safe Dynamic Sitting Balance Ability Normal Dynamic Standing Balance Ability Normal Transfers Bed Transfer Ability Independent Sit to Stand Bed Transfer Ability Contact Guard/Hand Hold Rehab PT IP prob,goals,plan Problems Date of Evaluation: 05/28/24 Discharge Plan PT Discharge Plan Pt is currently safe to return home. Eval Complexity Eval Charge Codes 75919 - High Complexity PHYSICIAN CERTIFICATION: I certify the specified therapy services for Caron Eagle are required, authorized, and reviewed every 30 days.
--- NOTE | 2024-05-28 12:55 | EXP.ACUTE.PN ---
Subjective *Date: 05/28/24 *Time: 12:55 Interval history: Patient states she is feeling better this morning. Color is improved on exam. Had another bowel movement with minimal blood at the end of her bowel movement. Improved appetite. No further vomiting or nausea. Family at bedside states patient looks a lot better today. Tolerating p.o. intake Medical Exam Vital signs and Labs for Last 24 Hours: Vital Signs Temp Pulse Pulse Resp BP BP Pulse Ox 05/28/24 11:00 05/28/24 09:00 05/28/24 08:00 05/28/24 08:00 99.4 F 72 18 152/75 H 95 05/28/24 06:54 05/28/24 05:00 05/28/24 04:00 98.5 F 77 16 123/61 97 05/28/24 03:00 05/28/24 01:00 05/27/24 23:00 05/27/24 21:00 05/27/24 20:00 05/27/24 20:00 97.6 F 83 16 105/89 L 99 05/27/24 19:03 97.6 F 80 17 137/68 99 05/27/24 19:00 05/27/24 18:30 97.9 F 84 18 126/69 05/27/24 17:31 81 18 102/52 L 99 05/27/24 17:01 83 15 120/70 98 05/27/24 16:31 75 14 123/59 L 98 05/27/24 15:45 72 16 97/48 L 99 05/27/24 15:30 74 13 97/48 L 99 05/27/24 15:02 97.5 F L 78 18 112/49 L 98 O2 Del Method 05/28/24 11:00 Room Air 05/28/24 09:00 Room Air 05/28/24 08:00 Room Air 05/28/24 08:00 Room Air 05/28/24 06:54 Room Air 05/28/24 05:00 Room Air 05/28/24 04:00 Room Air 05/28/24 03:00 Room Air 05/28/24 01:00 Room Air 05/27/24 23:00 Room Air 05/27/24 21:00 Room Air 05/27/24 20:00 Room Air 05/27/24 20:00 Room Air 05/27/24 19:03 Room Air 05/27/24 19:00 Room Air 05/27/24 18:30 Room Air 05/27/24 17:31 Room Air 05/27/24 17:01 Room Air 05/27/24 16:31 Room Air 05/27/24 15:45 Room Air 05/27/24 15:30 05/27/24 15:02 Room Air Intake and Output 05/27/24 05/28/24 05/28/24 23:59 07:59 15:59 Intake Total 1155 / 1425 270 / 1425 Output Total 0 / 0 0 / 0 Balance 0 / 1155 1155 / 1425 270 / 1425 Intake: Intake, Oral Amount 480 / 750 270 / 750 Intake, Total IV Amount 675 / 675 Ceftriaxone Sodium 1 gm In 0.9 50 / 50 % Sodium Chloride 50 ml @ 100 mls/hr IV Q24H [facility] Rx#: [id number] Lactated Ringers 1000ML 1,000 625 / 625 ml @ 125 mls/hr IV .Q8H XIOMY Rx# :[id number] Output: Output, Urine Amount 0 / 0 0 / 0 Other: Number of Unmeasured Voids 1 1 Weight 88.706 kg 93.213 kg Patient Weight 05/28/24 23:59 Weight 93.213 kg Laboratory Results - last 24 hr 05/27/24 15:06: WBC 15.9 H, RBC 4.95, Hgb 15.6, Hct 45.0, MCV 91.0, MCH 31.6 H, MCHC 34.7, RDW 14.4, Plt Count 453 H, MPV 7.3 L, Neut % (Auto) 77.9, Lymph % (Auto) 14.5, [place] % (Auto) 5.6, Eos % (Auto) 1.5, Baso % (Auto) 0.6, Neut # (Auto) 12.4 H, Lymph # (Auto) 2.3, [place] # (Auto) 0.9, Eos # (Auto) 0.2, Baso # (Auto) 0.1, Total Counted 100, Neutrophils % (Manual) 71, Lymphocytes % (Manual) 21, Monocytes % (Manual) 8, Platelet Estimate Normal, RBC Morphology Normal, PT 10.1, INR 0.89 L, Sodium 132 L, Potassium 3.9, Chloride 100, Carbon Dioxide 24, Anion Gap 11.9, BUN 16, Creatinine 1.40 H, Estimated GFR 38 L, Est GFR ( Amer) 46 L, Glucose 138 H, Calcium 9.4, Magnesium 2.3, Total Bilirubin 0.7, AST 54 H, ALT 36, Alkaline Phosphatase 136 H, Total Protein 7.6, Albumin 4.2, Globulin 3.4 H, Albumin/Globulin Ratio 1.2, Lipase 257, Hepatitis C Antibody Non reactive, HIV 1&2 Antibody Rapid Nonreactive 05/27/24 15:30: Blood Type A Positive, Antibody Screen Negative 05/27/24 15:54: Stl Aeromonas (PCR) Not detected, Stl C. cayetanensis PCR Not detected, Stool Rotavirus (PCR) Not detected, Stl Adenov F 40/41 PCR Not detected, Stool Astrovirus (PCR) Not detected, Stool Campylobacter PCR Not detected, Stl C.difficile Tox PCR Not detected, Stool Cryptosporidium PCR Not detected, Stl E.coli Shiga Tox PCR Not detected, Stool E coli O157 PCR Not detected, Stl Enterotoxigenic E PCR Not detected, Stool EPEC (PCR) Not detected, Stool EAEC (PCR) Not detected, Stl E. histolytica PCR Not detected, Stool Giardia [place]lia PCR Not detected, Stool Salmonella PCR Not detected, Stool Sapovirus (PCR) Not detected, Stl P. shigelloides PCR Not detected, Stl Shigella/EIEC PCR Not detected, St Y.enterocolitica PCR Not detected, Stool Vibrio (PCR) Not detected, Stl Vibrio cholerae PCR Not detected, Stl Norovirus GI/GII PCR Not detected 05/27/24 19:40: Urine Color Yellow, Urine Appearance Clear, Urine pH 5.5, Ur Specific [place] 1.015, Urine Protein 1+ A, Urine Glucose (UA) Negative, Urine Ketones Negative, Urine Blood 1+ A, Urine Nitrate Negative, Urine Bilirubin Negative, Urine Urobilinogen 1.0, Ur Leukocyte Esterase Negative, Urine RBC 5-10, Urine WBC Tntc, Ur Squamous Epith Cells 10-20, Urine Bacteria 4+, Fatty Casts 10-20 05/28/24 06:06: WBC 6.2 D, RBC 3.72 L, Hgb 11.5 L D, Hct 33.5 L, MCV 90.0, MCH 30.9, MCHC 34.4, RDW 14.5, Plt Count 316 D, MPV 7.3 L, Neut % (Auto) 46.4, Lymph % (Auto) 42.6, [place] % (Auto) 8.1, Eos % (Auto) 2.5, Baso % (Auto) 0.4, Neut # (Auto) 2.9, Lymph # (Auto) 2.7, [place] # (Auto) 0.5, Eos # (Auto) 0.2, Baso # (Auto) 0.0, ESR 23, Sodium 127 L, Potassium 3.5, Chloride 97 L, Carbon Dioxide 26, Anion Gap 7.5, BUN 17, Creatinine 1.30 H, Estimated Creat Clear 65, Estimated GFR 41 L, Est GFR ( Amer) 50 L, Glucose 126 H, Calcium 8.2 L, Magnesium 1.7 D, Total Bilirubin 0.3, AST 37 H D, ALT 25 D, Alkaline Phosphatase 86, C-Reactive Protein 27.6 H, Total Protein 5.7 L, Albumin 3.1 L D, Globulin 2.6, Albumin/Globulin Ratio 1.2 I & O for Labs for Last 24 Hours: Intake & Output 05/25/24 05/26/24 05/27/24 05/28/24 23:59 23:59 23:59 23:59 Intake Total 1425 / 1425 Output Total 0 / 0 0 / 0 Balance 0 / 1155 1425 / 1425 Weight 88.706 kg 93.213 kg Constitutional: Present no acute distress, obese and cooperative Head: Present atraumatic and normocephalic ENT: Present normal exam Respiratory: Present normal respiratory effort; Absent rhonchi, wheezes or crackles Cardiac: Present Reg Rate and Rhythm GI: Present soft and normal bowel sounds; Absent distention or tenderness Extremities: Present normal inspection and full ROM Skin: Present intact; Absent erythema Comment:: Capillary refill 2 to 3-second Neuro: Present Grossly Intact, alert, awake, oriented x 3 and moves all extremities Assessment and Plan *Assessment and plan (1) UTI (urinary tract infection): Status: Acute Category: Medical Code(s): N39.0 - Urinary tract infection, site not specified (2) MAC (acute kidney injury): Status: Acute Category: Medical Code(s): N17.9 - Acute kidney failure, unspecified (3) Pancolitis: Status: Acute Category: Medical Code(s): K51.00 - Ulcerative (chronic) pancolitis without complications (4) Immunocompromised: Status: Acute Category: Medical Code(s): D84.9 - Immunodeficiency, unspecified (5) Sjogrens syndrome: Status: Chronic Qualifiers: Sjogren organ or system involvement: unspecified organ involvement Qualified Code(s): M35.00 - Sjogren syndrome, unspecified Category: Medical Code(s): M35.00 - Sjogren syndrome, unspecified (6) HTN (hypertension): Status: Acute Qualifiers: Hypertension type: primary hypertension Qualified Code(s): I10 - Essential (primary) hypertension Category: Medical Code(s): I10 - Essential (primary) hypertension (7) Anxiety: Status: Acute Category: Medical Code(s): F41.9 - Anxiety disorder, unspecified Plan 63-year-old female on immunosuppressive therapy for Sjogren's who presents with acute onset of nausea vomiting diarrhea. Workup in the ER concerning for colitis with MAC. Discussed case with ER physician, request admission for treatment with IV fluids and consideration for antibiotics given severity of condition when patient came into the hospital. I agreed to admit for further management. Responding to fluids at this time. Received a liter in the ER. Awaiting stool panel. Given immunocompromise state, recent antibiotic exposure, use of PPI, initiated on empiric therapy for C. difficile. Stool panel came back negative however. Urine grossly abnormal. Treating for UTI. Will discontinue IV fluids and monitor for stability over the next 24 hours. Anticipate discharge tomorrow if continues to do well. Awaiting urine culture. Problems addressed as follows: Uti Pancolitis Nausea vomiting and bloody diarrhea MAC -Stool panel returned negative urinalysis however grossly abnormal. Culture pending. Urinalysis with too numerous to count white cells and 4+ bacteria. White count improved today to 6.2. CRP elevated at 27. ESR normal at 23. -Discontinue p.o. vancomycin. Continue ceftriaxone 1 g daily - Repeat CBC, CMP, magnesium ordered for the morning. -Potassium 3.5, magnesium 1.7. Kidney function with slight improvement of BUN 17, creatinine 1.3. -Discontinue IV fluid - famotidine 20 mg IV twice daily. Hold on PPI in the setting of concern for C. difficile. Anxiety: Continue alprazolam 0.25 mg twice daily as needed, amitriptyline 50 mg nightly, hydroxyzine 25 mg twice daily as needed, and Paxil 40 mg daily Obesity complicates all aspects of her care Holding her hormone therapy during admission along with her blood pressure meds given her soft blood pressure and MAC Sjogren's: Continue prednisone, 5 mg daily during her stress state. Will hold hydroxychloroquine and Xolair. Full code Regular diet holding anticoagulation in setting of BRBPR
[2024-05-28 16:00] VITALS: BP 108/72; PULSE 85; RESP 18; TEMP 36.7; O2SAT 95
--- NOTE | 2024-05-28 16:19 | PC.NURSE ---
PT IS RESTING IN BED. ALERT AND ORIENTED X4. EATING AND DRINKING WELL. AMBULATES TO THE BATHROOM. TOLERATED TAKING A SHOWER THIS SHIFT. LUNG SOUNDS CLEAR. ABDOMEN SOFT/NON TENDER WITH ACTIVE BOWEL SOUNDS. VSS. NO SWELLING NOTED TO BLE. WILL CONTINUE TO MONITOR.
[2024-05-28 19:24] VITALS: BP 136/78; PULSE 81; RESP 16; TEMP 37.1; O2SAT 98
[2024-05-28] MEDS: GABAPENTIN 300MG CAPSULE 300 MG PO (20:16)
[2024-05-28] MEDS: AMITRIPTYLINE 50MG TABLET 50 MG PO (20:16)
[2024-05-28] MEDS: IBUPROFEN 800 MG TABLET PO (21:01)
[2024-05-28] MEDS: CEFTRIAXONE SODIUM 1 GM in 0.9 % SODIUM CHLORIDE 50 ML IV (22:30)
[2024-05-29 03:46] VITALS: BP 164/82; PULSE 70; RESP 16; TEMP 36.3; O2SAT 98
[2024-05-29 04:00] VITALS: BMI 34.1
--- NOTE | 2024-05-29 06:15 | PC.NURSE ---
No acute changes overnight. Patient has ambulated to/from restroom independently this shift. No needs or complaints expressed this shift. Call light within reach.
[2024-05-29 06:52] LABS: Basophils % 0.8 % (0.1-2.0); Eosinophils # 0.2 K/mm3 (0.0-0.4); Eosinophils % 4.3 % (0.1-12.0); Hematocrit 32.3 % (37.0-47.0); Hemoglobin 11.2 g/dL (12.2-16.2); Lymphocytes # 2.1 K/mm3 (0.7-4.5); Lymphocytes % 48.6 % (10-50); Mean Corpuscular HGB Conc 34.6 g/dL (31.8-35.4); Mean Corpuscular Hemoglobin 30.9 pg (27.0-31.2); Mean Corpuscular Volume 89.3 fl (81-99); Mean Platelet Volume 7.1 fl (7.4-10.4); Monocytes # 0.3 K/mm3 (0.1-1.0); Monocytes % 6.9 % (1.7-9.3); Neutrophils # 1.7 K/mm3 (1.8-7.8); Neutrophils % 39.4 % (37.0-80.0); Platelet Count 278 K/mm3 (142-424); Red Blood Count 3.61 M/mm3 (4.20-5.40); Red Cell Distribution Width 14.3 % (11.5-17.5); White Blood Count 4.4 K/mm3 (4.8-10.8)
[2024-05-29 06:57] LABS: Albumin Level 3.5 g/dl (3.5-5.0); Chloride 98 mmol/L (98-107); Potassium 3.4 mmoL/L (3.5-5.1); Sodium 131 mmol/L (136-145)
[2024-05-29 07:00] LABS: Alanine Aminotransferase 25 U/L (12-78); Albumin/Globulin Ratio 1.4 (1.1-1.8); Alkaline Phosphatase 100 U/L (38-126); Anion Gap 6.4 mEq/L (5-15); Aspartate Amino Transferase 38 U/L (14-36); Bilirubin,Total 0.4 mg/dl (0.2-1.3); Blood Urea Nitrogen 7 mg/dl (7-17); Carbon Dioxide 30 mmol/L (22.0-30.0); Creatinine Clearance Estimated 83 mL/min (50-200); Estimated Glomerular Filt Rate 85 ml/min (>60); GFR (African American) 102 ML/MIN (>60); Globulin 2.5 g/dL (1.3-3.2)
[2024-05-29 07:01] LABS: Calcium 8.5 mg/dl (8.4-10.2); Glucose 100 mg/dl (74-100); Magnesium 1.7 mg/dl (1.6-2.3)
--- NOTE | 2024-05-29 07:01 | EXP.DC.SUM ---
General Admission date:: 05/27/24 Discharge date: 05/29/24 HPI HPI HPI: Mrs. Eagle is a 63 yo F with history of Sjogren's, anxiety, on immunosuppressive therapy daily. She presented to the ER with complaint of persistent nausea, vomiting, diarrhea. Having some cramping that was intense and began today. Had symptoms shortly thereafter. Symptoms began suddenly. She has become more weak as the days gone on. Has felt clammy and sweaty today. Scant amount of blood in her stool per her report. Denies fever. Did feel very weak however. Family notes that she was pale in her hands and feet with concern for possible cyanosis. Brought to the ER because of intensity of symptoms. History of similar symptoms a year ago, thought to be food poisoning at that time. Workup in the ER concerning for leukocytosis, kidney injury with elevated creatinine, and CT with pancolitis. Diarrhea panel obtained and still pending. Responded to liter bolus with some improvement and weakness. Family reports her color is improved. Medicine consulted for admission and further management. On evaluation, she describes her abdominal pain as being localized to the lower abdomen and associated with cramping during diarrhea. She denies any pain during bowel movements. She also reports experiencing pain in her chest that radiates to her back, but this pain was only present after vomiting and retching. Of note, takes hydroxychloroquine, steroids, Xolair regularly for immune suppression given her history of Sjogren's. Hospital Course Hospital Course Hospital Course: 63-year-old female on immunosuppressive therapy for Sjogren's who presents with acute onset of nausea vomiting diarrhea. Workup in the ER concerning for colitis with MAC. Discussed case with ER physician, request admission for treatment with IV fluids and consideration for antibiotics given severity of condition when patient came into the hospital. I agreed to admit for further management. Responding to fluids at this time. Received a liter in the ER. Stool panel returned negative. Initiated on empiric antibiotics. Urine concerning for UTI. Will complete empiric course. Symptoms resolved and back to baseline tolerating p.o. intake with no nausea or vomiting or any further diarrhea. Given clinical improvement, stable discharge home. Recommend follow-up with PCP for reevaluation in the next week. Uti Pancolitis Nausea vomiting and bloody diarrhea MAC -Presented with nausea, vomiting, diarrhea. Concern for possible C. difficile. Stool panel obtained ended up negative. Urinalysis was obtained with too numerous to count white cells and 4+ bacteria. White count improved today to 6.2. CRP elevated at 27. ESR normal at 23. Inflammatory markers showing improvement by day of discharge with CRP down to 8.9. Will transition from empiric ceftriaxone as initiated on admission for UTI to cefdinir to complete 7-day course of antibiotics for UTI in her immunocompromise state. Electrolytes replaced during admission. Diet gradually advanced. Tolerating p.o. fluids and nutrition for 24 hours prior to discharge from no further diarrhea. Afebrile and hemodynamically stable. Anxiety: Continue alprazolam 0.25 mg twice daily as needed, amitriptyline 50 mg nightly, hydroxyzine 25 mg twice daily as needed, and Paxil 40 mg daily Holding her hormone therapy during admission along with her blood pressure meds given her soft blood pressure and MAC. Blood pressure normalized. Okay to resume home regimen at discharge. Sjogren's: Continue prednisone, 5 mg daily during her stress state. Resume 2.5 mg daily at discharge. Resume home hydroxychloroquine and Xolair given improvement in clinical state and resolution of symptoms Exam Data for Last 24 hours Vital signs and Labs for Last 24 Hours: Temp Pulse Resp BP Pulse Ox O2 Del Method 97.4 F L 70 16 164/82 H 98 Room Air 05/29/24 03:46 05/29/24 03:46 05/29/24 03:46 05/29/24 03:46 05/29/24 03:46 05/29/24 06:54 Laboratory Results - last 24 hr 05/28/24 06:06: WBC 6.2 D, RBC 3.72 L, Hgb 11.5 L D, Hct 33.5 L, MCV 90.0, MCH 30.9, MCHC 34.4, RDW 14.5, Plt Count 316 D, MPV 7.3 L, Neut % (Auto) 46.4, Lymph % (Auto) 42.6, [place] % (Auto) 8.1, Eos % (Auto) 2.5, Baso % (Auto) 0.4, Neut # (Auto) 2.9, Lymph # (Auto) 2.7, [place] # (Auto) 0.5, Eos # (Auto) 0.2, Baso # (Auto) 0.0, ESR 23, Sodium 127 L, Potassium 3.5, Chloride 97 L, Carbon Dioxide 26, Anion Gap 7.5, BUN 17, Creatinine 1.30 H, Estimated Creat Clear 65, Estimated GFR 41 L, Est GFR ( Amer) 50 L, Glucose 126 H, Calcium 8.2 L, Magnesium 1.7 D, Total Bilirubin 0.3, AST 37 H D, ALT 25 D, Alkaline Phosphatase 86, C-Reactive Protein 27.6 H, Total Protein 5.7 L, Albumin 3.1 L D, Globulin 2.6, Albumin/Globulin Ratio 1.2 05/29/24 06:03: WBC 4.4 L D, RBC 3.61 L, Hgb 11.2 L, Hct 32.3 L, MCV 89.3, MCH 30.9, MCHC 34.6, RDW 14.3, Plt Count 278, MPV 7.1 L, Neut % (Auto) 39.4, Lymph % (Auto) 48.6, [place] % (Auto) 6.9, Eos % (Auto) 4.3, Baso % (Auto) 0.8, Neut # (Auto) 1.7 L, Lymph # (Auto) 2.1, [place] # (Auto) 0.3, Eos # (Auto) 0.2, Baso # (Auto) 0.0 I & O for Last 24 hours: Intake & Output 05/26/24 05/27/24 05/28/24 05/29/24 23:59 23:59 23:59 23:59 Intake Total 2029 Output Total 0 / 0 0 / 0 Balance 0 / 1155 2029 Weight 88.706 kg 93.213 kg 91.852 kg Constitutional Constitutional: no acute distress, obese and cooperative *Routine HEENT Exam Head: Present normocephalic Eye: Present EOMI and PERRL ENT: Present mucous membranes moist *Routine Neck Exam Neck: Present supple; Absent lymphadenopathy *Routine Respiratory Exam Respiratory: Present CTA bilaterally; Absent rhonchi, wheezes or crackles *Routine Cardiovascular Exam Cardiovascular: Present RRR *Routine Abdominal Exam Abdominal: Present soft and normoactive bowel sounds; Absent tenderness *Routine Rectal Exam Patient deferred: visual exam *Routine Exam Patient deferred: external exam *Routine Extremities Exam Extremities: Absent cyanosis, clubbing or edema *Routine Skin Exam Skin: Present warm; Absent rash *Routine Neurological Exam Neurological: Present alert, oriented X3 and moving all extremities; Absent altered mental status Results Data Completed and Pending Labs on day of discharge: Labs from last 24 hours 05/29/24 05/28/24 06:03 06:06 WBC 4.4 L D 6.2 D RBC 3.61 L 3.72 L Hgb 11.2 L 11.5 L D Hct 32.3 L 33.5 L MCV 89.3 90.0 MCH 30.9 30.9 MCHC 34.6 34.4 RDW 14.3 14.5 Plt Count 278 316 D MPV 7.1 L 7.3 L Neut % (Auto) 39.4 46.4 Lymph % (Auto) 48.6 42.6 [place] % (Auto) 6.9 8.1 Eos % (Auto) 4.3 2.5 Baso % (Auto) 0.8 0.4 Neut # (Auto) 1.7 L 2.9 Lymph # (Auto) 2.1 2.7 [place] # (Auto) 0.3 0.5 Eos # (Auto) 0.2 0.2 Baso # (Auto) 0.0 0.0 ESR 23 Sodium 127 L Potassium 3.5 Chloride 97 L Carbon Dioxide 26 Anion Gap 7.5 BUN 17 Creatinine 1.30 H Estimated Creat Clear 65 Estimated GFR 41 L Est GFR ( Amer) 50 L Glucose 126 H Calcium 8.2 L Magnesium 1.7 D Total Bilirubin 0.3 AST 37 H D ALT 25 D Alkaline Phosphatase 86 C-Reactive Protein 27.6 H Total Protein 5.7 L Albumin 3.1 L D Globulin 2.6 Albumin/Globulin Ratio 1.2 DS: Diagnosis Discharge Diagnosis (1) UTI (urinary tract infection): Status: Acute Code(s): N39.0 - Urinary tract infection, site not specified (2) MAC (acute kidney injury): Status: Acute Code(s): N17.9 - Acute kidney failure, unspecified (3) Pancolitis: Status: Acute Code(s): K51.00 - Ulcerative (chronic) pancolitis without complications (4) Immunocompromised: Status: Acute Code(s): D84.9 - Immunodeficiency, unspecified (5) Sjogrens syndrome: Status: Chronic Code(s): M35.00 - Sjogren syndrome, unspecified Qualifiers: Sjogren organ or system involvement: unspecified organ involvement Qualified Code(s): M35.00 - Sjogren syndrome, unspecified (6) HTN (hypertension): Status: Acute Code(s): I10 - Essential (primary) hypertension Qualifiers: Hypertension type: primary hypertension Qualified Code(s): I10 - Essential (primary) hypertension (7) Anxiety: Status: Acute Code(s): F41.9 - Anxiety disorder, unspecified Meds Home Medications and Allergies Home Medications ?Medication ?Instructions ?Recorded ?Confirmed ?Type aspirin 81 mg tablet,delayed 81 mg PO DAILY 11/18/17 05/27/24 History release cetirizine 10 mg capsule 10 mg PO DAILY 11/18/17 05/27/24 History esomeprazole magnesium 20 mg 20 mg PO DAILY 11/18/17 05/27/24 History capsule,delayed release gabapentin 300 mg capsule 300 mg PO HS 02/19/22 05/27/24 History epinephrine 0.3 mg/0.3 mL 0.3 mg IM Q5-15M PRN Allergic 02/21/23 05/27/24 History injection, auto-injector Reaction hydroxychloroquine 200 mg tablet 200 mg PO BID 02/21/23 05/27/24 History (Plaquenil) methocarbamol 500 mg tablet 500 mg PO BIDP PRN Muscle Pain 02/21/23 05/28/24 History prednisone 5 mg tablet 2.5 mg PO DAILY 02/21/23 05/27/24 History omalizumab 150 mg/mL subcutaneous 300 mg SQ MONTHLY 02/24/23 05/28/24 History syringe (Xolair) fluticasone propionate 50 1 spray intranasal DAILYP PRN 05/13/23 05/27/24 History mcg/actuation nasal Allergy Symptoms spray,suspension estradiol 1 mg tablet 1 mg PO DAILY #90 tabs 11/19/23 05/27/24 Rx lisinopril 40 mg tablet 20 mg PO BID 01/02/24 05/27/24 History paroxetine HCl 40 mg tablet 40 mg PO DAILY #90 tabs 01/20/24 05/27/24 Rx triamterene 37.5 1 tab PO DAILY Fluid 90 days #90 01/20/24 05/27/24 Rx mg-hydrochlorothiazide 25 mg tablet tabs hydroxyzine HCl 25 mg tablet 25 mg PO BID 03/26/24 05/27/24 History progesterone micronized 100 mg 100 mg PO DAILY #90 caps 03/26/24 05/27/24 Rx capsule (Prometrium) carvedilol 12.5 mg tablet 12.5 mg PO BID #60 tabs 05/10/24 05/27/24 Rx alprazolam 0.25 mg tablet 0.25 mg PO BID PRN anxiety #60 tabs 05/11/24 05/27/24 Rx amitriptyline 50 mg tablet 50 mg PO HS 05/28/24 05/28/24 History simvastatin 20 mg tablet 20 mg PO HS 05/28/24 05/28/24 History cefdinir 300 mg capsule 300 mg PO BID 5 days #10 caps 05/29/24 Rx New Prescriptions to Start Prescriptions: Garcia Fernández Allergies Allergy/AdvReac Type Severity Reaction Status Date / Time latex Allergy rash/hives Verified 05/27/24 18:50 oxycodone Allergy Rash Verified 05/27/24 18:50 Discharge Plan Disposition Patient Disposition: Home, Self-Care Condition: Fair Discharge Order Discharge Orders: Discharge Order (Routine); Ordered 05/29/24 Ordered By: Garcia Yu Follow up Plan Follow up with: Sofia Suarez APRN [Primary Care Provider] - Enter time for follow up (please call for follow up appointment) Prescriptions/Medication Reconciliation: New cefdinir 300 mg capsule 300 mg PO BID 5 Days Qty: 10 0RF Continued Xolair 150 mg/mL syringe 300 mg SQ MONTHLY prednisone 5 mg tablet 2.5 mg PO DAILY methocarbamol 500 mg tablet 500 mg PO BIDP PRN (Reason: Muscle Pain) epinephrine 0.3 mg/0.3 mL auto-injector 0.3 mg IM Q5-15M PRN (Reason: Allergic Reaction) Rx Instructions: do not exceed 3 doses per episode hydroxychloroquine [Plaquenil] 200 mg tablet 200 mg PO BID fluticasone propionate 50 mcg/actuation spray,suspension 1 spray NS DAILYP PRN (Reason: Allergy Symptoms) lisinopril 40 mg tablet 20 mg PO BID Patient Comments: TAKE 1/2 TABLET BY MOUTH TWICE DAILY triamterene-hydrochlorothiazid 37.5-25 mg tablet 1 tab PO DAILY 90 Days Qty: 90 3RF paroxetine HCl 40 mg tablet 40 mg PO DAILY Qty: 90 3RF hydroxyzine HCl 25 mg tablet 25 mg PO BID Patient Comments: TAKE ONE TABLET BY MOUTH TWICE DAILY MAY CAUSE DROWSINESS progesterone micronized [Prometrium] 100 mg capsule 100 mg PO DAILY Qty: 90 3RF estradiol 1 mg tablet 1 mg PO DAILY Qty: 90 3RF carvedilol 12.5 mg tablet 12.5 mg PO BID Qty: 60 5RF alprazolam 0.25 mg tablet 0.25 mg PO BID PRN (Reason: anxiety) Qty: 60 0RF simvastatin 20 mg tablet 20 mg PO HS Patient Comments: TAKE ONE TABLET BY MOUTH EVERY DAY AT BEDTIME FOR cholesterol amitriptyline 50 mg tablet 50 mg PO HS Rx Instructions: TAKE ONE TABLET BY MOUTH EVERY DAY AT BEDTIME aspirin 81 MG tablet,delayed release (DR/EC) 81 mg PO DAILY esomeprazole magnesium 20 MG capsule,delayed release(DR/EC) 20 mg PO DAILY cetirizine 10 MG capsule 10 mg PO DAILY gabapentin 300 mg capsule 300 mg PO HS Patient Comments: Problem Reconciliation Problems Reviewed?: Yes Patient Discharge Instructions ACTIVITY: Continue current activity DIET: continue same diet Patient Instructions: Diarrhea, DI for Abdominal Pain-Adult, DI for Acute Kidney Injury Print Language: [place] Providers Primary Care Provider: Sofia Suarez Admit Provider: Garcia Yu Attending Provider: Garcia Yu
[2024-05-29 07:06] LABS: C-Reactive Protein 8.9 mg/L (0-4)
[2024-05-29 08:00] VITALS: BP 144/74; PULSE 76; RESP 20; TEMP 36.7; O2SAT 96
[2024-05-29] MEDS: predniSONE 5MG TAB 5 MG PO (08:54)
[2024-05-29] MEDS: MAGNESIUM SULFATE IN WATER 2 GM/50 ML PIGGYBACK IV (08:54)
[2024-05-29] MEDS: FAMOTIDINE 20MG/2ML VIAL 20 MG IV (08:54)
[2024-05-29] MEDS: hydrOXYzine pamoate 25MG CAPSULE 25 MG PO (08:54)
[2024-05-29] MEDS: PARoxetine 20MG TABLET 40 MG PO (08:54)
--- NOTE | 2024-05-31 16:12 | SW/DCPLANNER ---
Hospital follow up phone call: patient stated that she is feeling 100% better. Patient will be making her follow up appointment and did hand picker her new medication. Patient did not have any further questions/needs at this time.
== END 2024-05-29 10:28 | disposition home or self-care (01) ==
LOC: ER 15:48 → 2ND 18:37
PROVIDERS: Admitting Provider Internal Medicine Adolescent Medicine; Emergency Provider Emergency Medicine; PCP Nurse Practitioner Family; Visit Provider Internal Medicine Adolescent Medicine
DX: K51.00 Ulcerative (chronic) pancolitis without complications (principal); N17.9 Acute kidney failure, unspecified; D84.9 Immunodeficiency, unspecified; M35.00 Sjogren syndrome, unspecified; I10 Essential (primary) hypertension; F41.9 Anxiety disorder, unspecified; N39.0 Urinary tract infection, site not specified; Z79.899 Other long term (current) drug therapy
CPT/HCPCS: 36415; 74174; 80053; 81001; 83690; 83735; 85007; 85025; 85027; 85610; 85651; 86140; 86803; 86850; 87086; 87389; 87507; 93005; 97163; 97165; 99285; G0378; J0696; J2405; J3475; J7120; J7512; Q9967; S0028

== ENCOUNTER 2024-06-04 16:45 | Outpatient (CLI) | payer BC, SELFPAY | END 2024-06-04 23:59 | disposition home or self-care (01) | LOC: LAB.DROPOF 16:45 | PROVIDERS: PCP Nurse Practitioner Family; Visit Provider Nurse Practitioner Family | DX: N39.0 Urinary tract infection, site not specified (principal) | CPT/HCPCS: 87086 ==

== ENCOUNTER 2024-06-11 15:07 | Outpatient (CLI) | payer BC, SELFPAY ==
[2024-06-11 15:15] LABS: Microscopic, Urine URINE MICROSCOPIC (MICROSCOPIC)
[2024-06-11 16:01] LABS: Appearance,Urine CLEAR (Clear); Bilirubin,Urine Negative (Negative); Blood, Urine TRACE-I (Negative); Color,Urine YELLOW (Yellow); Glucose,Urine (UA) Negative (Negative); Ketones,Urine Negative (Negative); Leukocyte Esterase,Urine Negative (Negative); Nitrate,Urine Negative (Negative); Protein,Urine Negative (Negative); Urobilinogen,Urine 0.2 EU/dl (0.2)
[2024-06-11 16:19] LABS: Bacteria,Urine Trace /lpf; WBC,Urine Occasional #/hpf (0-3)
== END 2024-06-11 23:59 | disposition home or self-care (01) ==
LOC: LAB 15:08
PROVIDERS: PCP Nurse Practitioner Family; Visit Provider Nurse Practitioner Family
DX: N39.0 Urinary tract infection, site not specified (principal)
CPT/HCPCS: 81001; 87086

== ENCOUNTER 2024-07-21 13:00 | Outpatient (RCR) | payer BC, SELFPAY | END 2024-07-21 23:59 | disposition home or self-care (01) | LOC: OT 13:00 | PROVIDERS: Visit Provider Orthopaedic Surgery Sports Medicine | DX: Z98.890 Other specified postprocedural states (principal); Z96.612 Presence of left artificial shoulder joint | CPT/HCPCS: 97010; 97014; 97110; 97140; 97164; 97165; 97168; 97530; G0283 ==

== ENCOUNTER 2024-10-20 14:40 | Outpatient (CLI) | payer BC, SELFPAY | END 2024-10-20 23:59 | disposition home or self-care (01) | LOC: LAB.DROPOF 10-21 11:04 | PROVIDERS: PCP Nurse Practitioner; Visit Provider Nurse Practitioner | DX: R35.0 Frequency of micturition (principal) | CPT/HCPCS: 87086 ==

== ENCOUNTER 2025-03-27 13:36 | Emergency (ER) | payer BC, SELFPAY ==
[2025-03-27] VITALS (11 sets, daily range): BP systolic 112–149; BP diastolic 52–76; PULSE 61–69; RESP 9–18; TEMP 36.4–36.8; O2SAT 96–99; BMI 34.7
--- NOTE | 2025-03-27 13:39 | HMH.EDGENADL ---
Discharge Plan Disposition Chief Complaint: Syncope Prescriptions Prescriptions: No Action Xolair 150 mg/mL syringe 300 mg SQ MONTHLY prednisone 5 mg tablet 2.5 mg PO DAILY methocarbamol 500 mg tablet 500 mg PO BIDP PRN (Reason: Muscle Pain) epinephrine 0.3 mg/0.3 mL auto-injector 0.3 mg IM Q5-15M PRN (Reason: Allergic Reaction) Rx Instructions: do not exceed 3 doses per episode hydroxychloroquine [Plaquenil] 200 mg tablet 200 mg PO BID fluticasone propionate 50 mcg/actuation spray,suspension 1 spray NS DAILYP PRN (Reason: Allergy Symptoms) hydroxyzine HCl 25 mg tablet 25 mg PO BID Patient Comments: TAKE ONE TABLET BY MOUTH TWICE DAILY MAY CAUSE DROWSINESS progesterone micronized [Prometrium] 100 mg capsule 100 mg PO DAILY Qty: 90 3RF gabapentin 300 mg capsule 300 mg PO HS Qty: 30 2RF alprazolam 0.25 mg tablet 0.25 mg PO BID PRN (Reason: anxiety) Qty: 60 0RF guaifenesin [Mucinex] 1,200 mg tablet extended release 12hr 1,200 mg PO BID Qty: 20 0RF lisinopril 40 mg tablet 20 mg PO BID Qty: 30 11RF Patient Comments: TAKE 1/2 TABLET BY MOUTH TWICE DAILY albuterol sulfate 2.5 mg /3 mL (0.083 %) solution for nebulization 2.5 mg inhalation Q4-6H PRN (Reason: shortness of breath or wheezing) Qty: 90 1RF estradiol 1 mg tablet See Rx Instructions .ROUTE .COMPLEX Qty: 90 1RF Dose Instruction: TAKE ONE TABLET BY MOUTH EVERY DAY Rx Instructions: TAKE ONE TABLET BY MOUTH EVERY DAY simvastatin 20 mg tablet See Rx Instructions .ROUTE .COMPLEX Qty: 90 1RF Dose Instruction: TAKE ONE TABLET BY MOUTH EVERY DAY AT BEDTIME FOR cholesterol Rx Instructions: TAKE ONE TABLET BY MOUTH EVERY DAY AT BEDTIME FOR cholesterol carvedilol 12.5 mg tablet 12.5 mg PO BID Qty: 60 5RF triamterene-hydrochlorothiazid 37.5-25 mg tablet See Rx Instructions .ROUTE .COMPLEX Qty: 90 3RF Dose Instruction: TAKE ONE TABLET BY MOUTH EVERY DAY FOR FLUID Rx Instructions: TAKE ONE TABLET BY MOUTH EVERY DAY FOR FLUID amitriptyline 50 mg tablet 50 mg PO HS Qty: 90 0RF Rx Instructions: TAKE ONE TABLET BY MOUTH EVERY DAY AT BEDTIME paroxetine HCl 40 mg tablet 40 mg PO DAILY Qty: 90 0RF Airsupra 90-80 mcg/actuation HFA aerosol inhaler See Rx Instructions .ROUTE .COMPLEX Qty: 21.4 0RF Dose Instruction: INHALE TWO PUFFS BY MOUTH six times DAILY NEEDED FOR SHORTNESS OF BREATH Rx Instructions: INHALE TWO PUFFS BY MOUTH six times DAILY NEEDED FOR SHORTNESS OF BREATH aspirin 81 MG tablet,delayed release (DR/EC) 81 mg PO DAILY esomeprazole magnesium 20 MG capsule,delayed release(DR/EC) 20 mg PO DAILY cetirizine 10 MG capsule 10 mg PO DAILY Referrals Follow up/Referrals: Provider,Referral, MD [Referring, Medical] - See instructions Instructions Patient Instructions: DI for Syncope in Adults (Fainting), DI for Syncope in Children (Fainting) Print Language Print Language: Mosotho Discharge ED Provider: Teri Bloom General Adult HPI General Chief complaint: Syncope Stated complaint: syncope Time Seen by Provider: 03/27/25 13:39 History of Present Illness HPI narrative: Patient is a 64-year-old past medical history significant for Sjogren syndrome hypertension presents to the emergency department with syncopal episode. Patient has had congestion and sneezing with runny nose over the last 24 hours so took 2 doses of Benadryl yesterday for her symptoms. This morning she was sleepier than normal so was laying on the couch for over 6 hours when she s stood up suddenly walked a few steps then felt lightheaded dizzy like she was about to pass out sweaty and nauseous. Patient sat down and then syncopized while laying her head on the table. Has never had similar episodes in the past. Denies any chest pain palpitations prior to her syncopal event or currently. Patient feels very thirsty. No fever chills difficulty ambulating after her syncopal event. No abnormal shaking prior to her syncopal event that was witnessed by her . Patient was breathing while she was passed out with no episodes of turning blue. Related Data Home Medications ?Medication ?Instructions ?Recorded ?Confirmed aspirin 81 mg tablet,delayed 81 mg PO DAILY 11/18/17 01/14/25 release cetirizine 10 mg capsule 10 mg PO DAILY 11/18/17 01/14/25 esomeprazole magnesium 20 mg 20 mg PO DAILY 11/18/17 01/14/25 capsule,delayed release epinephrine 0.3 mg/0.3 mL 0.3 mg IM Q5-15M PRN Allergic 02/21/23 01/14/25 injection, auto-injector Reaction hydroxychloroquine 200 mg tablet 200 mg PO BID 02/21/23 01/14/25 (Plaquenil) methocarbamol 500 mg tablet 500 mg PO BIDP PRN Muscle Pain 02/21/23 01/14/25 prednisone 5 mg tablet 2.5 mg PO DAILY 02/21/23 01/14/25 omalizumab 150 mg/mL subcutaneous 300 mg SQ MONTHLY 02/24/23 01/14/25 syringe (Xolair) fluticasone propionate 50 1 spray intranasal DAILYP PRN 05/13/23 01/14/25 mcg/actuation nasal Allergy Symptoms spray,suspension hydroxyzine HCl 25 mg tablet 25 mg PO BID 03/26/24 01/14/25 Previous Rx's ?Medication ?Instructions ?Recorded progesterone micronized 100 mg 100 mg PO DAILY #90 caps 03/26/24 capsule (Prometrium) lisinopril 40 mg tablet 20 mg (1/2 x 40 mg) PO BID #30 tabs 08/10/24 guaifenesin 1,200 mg tablet, 1,200 mg PO BID #20 tabs 10/20/24 extended release 12 hr (Mucinex) albuterol sulfate 2.5 mg/3 mL 2.5 mg (3 mL) inhalation Q4-6H PRN 10/22/24 (0.083 %) solution for nebulization shortness of breath or wheezing #90 mL estradiol 1 mg tablet See Rx Instructions .Route 11/05/24 .COMPLEX #90 tabs simvastatin 20 mg tablet See Rx Instructions .Route 11/05/24 .COMPLEX #90 tabs carvedilol 12.5 mg tablet 12.5 mg PO BID #60 tabs 11/10/24 triamterene 37.5 See Rx Instructions .Route 12/31/24 mg-hydrochlorothiazide 25 mg tablet .COMPLEX #90 tabs amitriptyline 50 mg tablet 50 mg PO HS #90 tabs 01/10/25 paroxetine HCl 40 mg tablet 40 mg PO DAILY #90 tabs 01/10/25 alprazolam 0.25 mg tablet 0.25 mg PO BID PRN anxiety #60 tabs 01/14/25 gabapentin 300 mg capsule 300 mg PO HS #30 caps 01/14/25 albuterol 90 mcg-budesonide 80 See Rx Instructions .Route 03/11/25 mcg/actuation HFA aerosol inhaler .COMPLEX #21.4 grams (Airsupra) Allergies Allergy/AdvReac Type Severity Reaction Status Date / Time latex Allergy rash/hives Verified 01/14/25 11:38 oxycodone Allergy Rash Verified 01/14/25 11:38 [facility] Disclaimer: The information contained in this section may have been updated after the patient was seen, as this information can be updated by other users. Medical History Bronchitis Sjogrens syndrome HTN (hypertension) Acute dyspnea PNA (pneumonia) Traumatic tear of left rotator cuff Decreased range of motion of left shoulder Injury of left shoulder Left shoulder pain Anxiety Iron deficiency anemia Vitamin B12 deficiency Abnormal electrocardiogram [ECG] [EKG] Hormone replacement therapy (HRT) Chest pain GERD (gastroesophageal reflux disease) Fibromyalgia Sinusitis Hyponatremia Surgical History H/O shoulder surgery Left, 01/21/24 History of delivery S/P ORIF (open reduction internal fixation) fracture left patella fx Family History Mother Heart attack Social History Smoking Status: Never smoker alcohol intake: never substance use type: denies use current occupational status: retired Travel in the last 8 weeks?: None household members: family housing: house Have you lived/traveled outside US in past 30 days?: No Contact w/someone who lives/traveled outside US past 30 days?: No Exposure to someone with infectious disease in past 14 days?: No Do you have a fever (greater than 100.4 F or 38 C)?: No Have you tested positive for COVID-19?: No Exposed to someone with COVID-19 in past 14 days?: No Do you have a sore throat?: No Do you have a cough?: No Do you have any weakness?: No Do you have any diarrhea?: No Are you experiencing any unusual bleeding?: No Do you have any muscle aches/pain?: No Do you have any abdominal pain?: No Are you experiencing loss of taste or smell?: No Other Medical History Have you received the Flu Vaccine for this season: No Have you received the Pneumonia Vaccine: No ROS Obtained: Yes All systems reviewed & no additional complaints except as documented Physical Exam General General appearance: alert and in no apparent distress Eye Eye exam: Present normal appearance and PERRL ENT ENT exam: Present mucous membranes dry and other (Rhinorrhea) Respiratory Respiratory exam: Present normal lung sounds bilaterally; Absent respiratory distress Cardiovascular Cardiovascular exam: Present regular rate and normal rhythm Abdominal Exam Abdominal exam: Present soft; Absent distention or tenderness Extremities Exam Extremities exam: Present other (Dry distal extremities) Back Exam Back exam: Present normal inspection; Absent tenderness Neurological Exam Neurological exam: Present alert, oriented X3, CN II-XII intact, normal gait and other (No abnormal finger-nose or [id number], NIHSS 0); Absent motor sensory deficit Medical Decision Making Medical Records Screening: Per USPSTF and CDC recommendations, given the prevalence of disease in our region, it is our hospital?s policy to screen for HIV and viral Hepatitis for all patients aged 18 and over and those with ongoing risk factors. Geremias Inquiry Pt receiving controlled substance: No Vital Signs: 03/27/25 13:45 03/27/25 13:55 03/27/25 14:00 Temperature 97.5 F L Temperature Source Oral Pulse Rate 63 Pulse Rate [Orthostatic Lying Right Radial] 61 Pulse Rate [Orthostatic Sitting Right Radial] 63 Pulse Rate [Orthostatic Standing Right Radial] 64 Pulse Rate [Right Radial] 69 Respiratory Rate 18 9 L Blood Pressure 118/72 Blood Pressure [Orthostatic Lying Right Arm] 134/74 Blood Pressure [Orthostatic Sitting Right Arm] 114/67 Blood Pressure [Orthostatic Standing Right Arm] 112/52 L Blood Pressure [Right Arm] 126/76 Blood Pressure Mean [Right Arm] 92 Blood Pressure Source [Right Arm] Automatic Cuff Blood Pressure Position [Right Arm] Sitting 02 Sat by Pulse Oximetry 97 97 Oxygen Delivery Method Room Air 03/27/25 14:10 03/27/25 14:11 03/27/25 14:12 Temperature Temperature Source Pulse Rate 68 65 Pulse Rate [Orthostatic Lying Right Radial] Pulse Rate [Orthostatic Sitting Right Radial] Pulse Rate [Orthostatic Standing Right Radial] Pulse Rate [Right Radial] Respiratory Rate 18 13 18 Blood Pressure 137/74 114/67 112/52 L Blood Pressure [Orthostatic Lying Right Arm] Blood Pressure [Orthostatic Sitting Right Arm] Blood Pressure [Orthostatic Standing Right Arm] Blood Pressure [Right Arm] Blood Pressure Mean [Right Arm] Blood Pressure Source [Right Arm] Blood Pressure Position [Right Arm] 02 Sat by Pulse Oximetry 96 98 Oxygen Delivery Method 03/27/25 14:30 03/27/25 15:01 Temperature Temperature Source Pulse Rate 66 62 Pulse Rate [Orthostatic Lying Right Radial] Pulse Rate [Orthostatic Sitting Right Radial] Pulse Rate [Orthostatic Standing Right Radial] Pulse Rate [Right Radial] Respiratory Rate 17 14 Blood Pressure 118/60 131/65 Blood Pressure [Orthostatic Lying Right Arm] Blood Pressure [Orthostatic Sitting Right Arm] Blood Pressure [Orthostatic Standing Right Arm] Blood Pressure [Right Arm] Blood Pressure Mean [Right Arm] Blood Pressure Source [Right Arm] Blood Pressure Position [Right Arm] 02 Sat by Pulse Oximetry 99 98 Oxygen Delivery Method Room Air Lab Data Lab Results 03/27/25 13:38: WBC 7.6, RBC 4.02 L, Hgb 12.6, Hct 35.5 L, MCV 88.3, MCH 31.3 H, MCHC 35.5 H, RDW 12.6, Plt Count 310, MPV 9.1, Neut % (Auto) 60.0, Lymph % (Auto) 25.1, [place] % (Auto) 7.6, Eos % (Auto) 6.3, Baso % (Auto) 0.7, Neut # (Auto) 4.6, Lymph # (Auto) 1.9, Cid[place] # (Auto) 0.6, Eos # (Auto) 0.5 H, Baso # (Auto) 0.1, Sodium 133 L, Potassium 4.0, Chloride 100, Carbon Dioxide 24, Anion Gap 13.0, BUN 13, Creatinine 0.70, Estimated Creat Clear 82, Estimated GFR 84, Est GFR ( Amer) 102, Glucose 158 H, Calcium 9.4, Magnesium 1.9, Total Bilirubin 0.6, AST 48 H, ALT 24, Alkaline Phosphatase 138 H, Troponin I < 0.01, Total Protein 7.2, Albumin 4.2, Globulin 3.0, Albumin/Globulin Ratio 1.4 03/27/25 14:03: SARS-CoV-2 (PCR) Not detected, Influenza A Untype (PCR) Not detected, Influenza Type B (PCR) Not detected 03/27/25 13:38 03/27/25 13:38 Orders (Tests/Meds): ED MEDICATIONS Discontinued Medications Generic Name Dose Route Start Last Admin Trade Name Freq PRN Reason Stop Dose Admin Lactated Ringer's 1,000 mls @ 999 mls/hr 03/27/25 13:55 03/27/25 14:05 Lactated Ringer's 1000 Ml Bag IV 03/27/25 14:55 999 mls/hr .Q1H1M ONE Administration ORDERS Category Date Time Status Chest XR 2 view (NOT portable) [XR chest 2V] Stat Exams 03/27/25 13:55 Completed Complete Blood Count Auto Diff Stat Lab 03/27/25 13:38 Completed Comprehensive Metabolic Panel Stat Lab 03/27/25 13:38 Completed Full Resp Panel w/COVID ([facility]) Routine Lab 03/27/25 14:03 Received Magnesium Stat Lab 03/27/25 13:38 Completed Rapid PCR Covid and Flu A/B Stat Lab 03/27/25 14:03 Completed Troponin I Q3H Lab 03/27/25 17:00 Ordered Troponin I Q3H Lab 03/27/25 20:00 Ordered Troponin I Stat Lab 03/27/25 13:38 Completed Medical Decision Narrative: In summary, this 64-year-old female presents to the emergency department today with syncope. On initial evaluation patient is hemodynamically stable saturating appropriately on room air afebrile no acute distress. Differential diagnosis includes but is not limited to orthostatic hypotension vasovagal syncope cardiogenic syncope including ACS arrhythmia, vertebrobasilar insufficiency. history is most consistent with orthostatic hypotension leading to vasovagal syncope. based on these concerns, I ordered CBC CMP EKG troponin EKG nasopharyngeal respiratory swabs ECG personally interpreted demonstrates Normal sinus rhythm, T wave inversions in V1 V2, aVR, normal axis, no ST elevation or ST depression. Patient received 1 L fluid bolus for treatment. Orthostatic vitals positive for orthostatic hypotension. Labs personally reviewed demonstrate mild hyponatremia, normal creatinine XR personally interpreted demonstrates no focal consolidation or pneumothorax On reassessment patient has resolution of symptoms. Patient's vasovagal syncopal event likely from polypharmacy with her Benadryl and Zyrtec use. Recommended avoiding Benadryl and increasing hydration. Patient ambulatory and tolerating p.o. agreeable to discharge with outpatient follow-up with her PCP. Critical Care Critical Care Time Critical Care Time: No
--- OUTSIDE RECORDS SUMMARY | 2025-03-27 13:39 | XMS_ITS | Clinical Summary ---
[facility] Address [address] [place] [address] Care Team Providers Care Assistant Front End Manager Name Role Phone Federico Whitehead MD Primary Care Provider [phone] Social History Tobacco Use Types Packs/Day Years Used Date Smoking Tobacco: Never Assessed Abuse Screen Answer Date Recorded Unsafe at Home or Work/School Not on file Feels Threatened by Someone? Not on file 04/2023 Does Anyone Keep You from Co ntacting Others or Doint Things Outside the Home? Not on file 05/12/2023 Physical Sign of Abuse Present Not on file 1 Housing Stability Answer Date Recorded Current Living Arrangements Not on file 04/2023 Potentially Unsafe Housing Conditions Not on max e 05/12/2023 Family and Community Support Answer Jak e Recorded Help with Day-to-Day Activities Not on file 05/12/2023 Lonely or Isolated Not on file 05/12/2023 Employment Answer Date Recorded Do you want help finding or keeping work or a stephanie b? Not on file 05/12/2023 Disabilities Answer Date Recorded Concentrating, Remembering, or Making Decisions Difficulty Not on file 05/12/2023 Doing Errands Independently Difficulty Not on fi le 05/12/2023 Education Answer Date Recorded Help with school or training? Not on file Preferred Language Not on file 05/12/2023 Comments Unknown Sex and Gender Information Value Date Recorded Sex Assigned at Not on file Legal Sex Female 10:19 AM EDT Gender Identity Not on file Sexual Orientation Not on file Plan of Treatment Health Maintenance Due Date Last Done Comments ANNUAL PHYSICAL 1960 Annual Gynecologic Pelvic and Breast Exam 1960 HEPATITIS C SCREENING 1960 TDAP/TD VACCINES (1 - Tdap) 1979 MAMMOGRAM 2000 COLOGUARD 2005 COLON CANCER SCREENING 5 YEAR SIGMOIDOSCOPY 2005 COLONOSCOPY 2005 [address] CANCER SCREENING 2005 CT COLONOGRAPHY 2005 FECAL OCCULT BLOOD TEST 2005 FIT Testing (1 year) 2005 Pneumococcal Vaccine 50+ (1 of 1 - PCV) 2010 ZOSTER VACCINE (1 of 2) 2010 COVID-19 Vaccine ( - 2023- season) 2024 INFLUENZA VACCINE 05/04/2025 Insurance [employer] Care Teams Assistant Front End Manager Relationship Specialty Start Date End Date Federico Whitehead MD [address] [place] [address] PCP - General Family Medicine 05/31/16
--- NOTE | 2025-03-27 13:40 | ECG_ITS ---
APPROVED REPORT Exam: Resting ECG HR:63 bpm ECG Measurements Heart Rate 63 AXES AL 173 P 34 QRSd 105 QRS 36 QT 459 T 72 QTc 467 Conclusion Normal sinus rhythm, T wave inversions in V1 V2, aVR, normal axis, no ST elevation or ST depression. Electronically signed by : Teri Bloom, 03/27/2025 15:34:12
--- NOTE | 2025-03-27 13:55 | XR_ITS ---
PROCEDURE INFORMATION: Exam: XR Chest Exam date and time: 03/27/2025 2:10 PM Age: 64 years old Clinical indication: Cough and shortness of breath; Additional info: Cough, SOA TECHNIQUE: Imaging protocol: Radiologic exam of the chest. Views: 2 views. COMPARISON: CR XR CHEST 2V 08/19/2023 4:19 PM FINDINGS: Lungs: Unremarkable. No consolidation. Pleural spaces: Unremarkable. No pleural effusion. No pneumothorax. Heart/Mediastinum: Unremarkable. No cardiomegaly. Bones/joints: Left shoulder arthroplasty . Osseous structures are otherwise stable IMPRESSION: No acute findings.
[2025-03-27 14:02] LABS: Hematocrit 35.5 % (37.0-47.0); Hemoglobin 12.6 g/dL (12.2-16.2); Immature Granulocytes % 0.3 %; Mean Corpuscular HGB Conc 35.5 g/dL (31.8-35.4); Mean Corpuscular Hemoglobin 31.3 pg (27.0-31.2); Mean Corpuscular Volume 88.3 fl (81-99); Nucleated Red Blood Cells % 0 %; Platelet Count 310 K/mm3 (142-424); Red Blood Count 4.02 M/mm3 (4.20-5.40); Red Cell Distribution Width-SD 41.1 fL; White Blood Count 7.6 K/mm3 (4.8-10.8)
[2025-03-27 14:04] LABS: Albumin Level 4.2 g/dl (3.5-5.0); Chloride 100 mmol/L (98-107); Sodium 133 mmol/L (136-145)
[2025-03-27 14:05] LABS: Potassium 4.0 mmoL/L (3.5-5.1)
[2025-03-27] MEDS: LACTATED RINGERS 1000ML 1,000 ML 999 ML IV (14:05)
[2025-03-27 14:07] LABS: Adenovirus,PCR Not Detected (NotDetected); Chlamydophila Pneumoniae, PCR Not Detected (NotDetected); Coronavirus 19, PCR Not Detected (NotDetected); Coronovirus HKU1,PCR Not Detected (NotDetected); Influenza A, PCR Not Detected (NotDetected); Influenza AH1, 2009 Not Detected (NotDetected); Influenza AH1, PCR Not Detected (NotDetected); Influenza AH3,PCR Not Detected (NotDetected); Influenza B, PCR Not Detected (NotDetected); Mycoplasma Pneumoniae, PCR Not Detected (NotDetected); Parainfluenza 1, PCR Not Detected (NotDetected); Parainfluenza 2, PCR Not Detected (NotDetected); Parainfluenza 3, PCR Not Detected (NotDetected); Parainfluenza 4, PCR Not Detected (NotDetected)
[2025-03-27 14:07] LABS: Alanine Aminotransferase 24 U/L (12-78); Albumin/Globulin Ratio 1.4 (1.1-1.8); Alkaline Phosphatase 138 U/L (38-126); Anion Gap 13.0 mEq/L (5-15); Aspartate Amino Transferase 48 U/L (14-36); Bilirubin,Total 0.6 mg/dl (0.2-1.3); Blood Urea Nitrogen 13 mg/dl (7-17); Calcium 9.4 mg/dl (8.4-10.2); Carbon Dioxide 24 mmol/L (22.0-30.0); Creatinine Clearance Estimated 82 mL/min (50-200); Creatinine,Serum 0.70 mg/dl (0.52-1.04); Estimated Glomerular Filt Rate 84 ml/min (>60); GFR (African American) 102 ML/MIN (>60); Globulin 3.0 g/dL (1.3-3.2); Glucose 158 mg/dl (74-100); Total Protein,Serum 7.2 g/dl (6.3-8.2)
[2025-03-27 14:08] LABS: Magnesium 1.9 mg/dl (1.6-2.3)
[2025-03-27 14:20] LABS: Troponin I < 0.01 ng/ml (0.00-0.034)
== END 2025-03-27 16:04 | disposition home or self-care (01) ==
PROVIDERS: Emergency Provider Student in an Organized Health Care Education/Training Program; PCP Nurse Practitioner Family
DX: R55 Syncope and collapse (principal); E87.1 Hypo-osmolality and hyponatremia; I10 Essential (primary) hypertension; M35.00 Sjogren syndrome, unspecified
CPT/HCPCS: 0223U; 71046; 80053; 83735; 84484; 85025; 87636; 93005; 96360; 99285; J7120

== ENCOUNTER 2025-04-19 14:02 | Outpatient (CLI) | payer BC, SELFPAY ==
--- OUTSIDE RECORDS SUMMARY | 2025-04-19 14:07 | XMS_ITS | Clinical Summary ---
[facility] Address [address] [place] [address] Care Team Providers Care Supervisor Crack Off Name Role Phone Federico Whitehead MD Primary Care Provider [phone] Social History Tobacco Use Types Packs/Day Years [...] of 2) 2010 COVID-19 Vaccine ( - season) 2025 INFLUENZA VACCINE 05/04/2025 Insurance [employer] Care Teams Supervisor Crack Off Relationship Specialty Start Date End Date Federico Whitehead MD [address] [place] [address] PCP - General Family Medicine 05/31/16
--- NOTE | 2025-04-19 14:14 | ECG_ITS ---
APPROVED REPORT Exam: Resting ECG HR:65 bpm ECG Measurements Heart Rate 65 AXES AZ 180 P 31 QRSd 100 QRS 19 QT 427 T 63 QTc 438 Conclusion SINUS RHYTHM NORMAL ECG UNCONFIRMED REPORT Electronically signed by : Umesh Walter MD 04/20/2025 08:24:44
--- NOTE | 2025-04-19 14:45 | XR_ITS ---
FINAL REPORT CLINICAL HISTORY: PRE-DIABETIC COMPARISON: 03/23/2025 FINDINGS: 2 views of the chest were obtained . The heart is normal in size. The mediastinum is within normal limits. The lungs are clear. There is no pneumothorax. Osseous structures are unremarkable. IMPRESSION: No acute cardiopulmonary process. Reviewed, Interpreted and Dictated by Maty Gann MD Transcribed by Breanna Castillo Authenticated and [facility]
[2025-04-19 14:47] LABS: Hematocrit 37.1 % (37.0-47.0); Hemoglobin 12.5 g/dL (12.2-16.2); Immature Granulocytes % 0.2 %; Mean Corpuscular HGB Conc 33.7 g/dL (31.8-35.4); Mean Corpuscular Hemoglobin 30.9 pg (27.0-31.2); Mean Corpuscular Volume 91.6 fl (81-99); Nucleated Red Blood Cells % 0 %; Platelet Count 278 K/mm3 (142-424); Red Blood Count 4.05 M/mm3 (4.20-5.40); Red Cell Distribution Width-SD 42.7 fL; White Blood Count 5.2 K/mm3 (4.8-10.8)
[2025-04-19 14:54] LABS: Anion Gap 11.5 mEq/L (5-15); Blood Urea Nitrogen 11 mg/dl (7-17); Calcium 9.1 mg/dl (8.4-10.2); Carbon Dioxide 28 mmol/L (22.0-30.0); Chloride 97 mmol/L (98-107); Creatinine,Serum 0.80 mg/dl (0.52-1.04); Estimated Glomerular Filt Rate 72 ml/min (>60); GFR (African American) 87 ML/MIN (>60); Glucose 105 mg/dl (74-100); Potassium 3.5 mmoL/L (3.5-5.1); Sodium 133 mmol/L (136-145)
[2025-04-19 15:56] LABS: Hemoglobin A1C 5.5 % (4.0-6.0)
== END 2025-04-19 23:59 | disposition home or self-care (01) ==
LOC: LAB 14:04
PROVIDERS: PCP Nurse Practitioner Family; Visit Provider Orthopaedic Surgery Sports Medicine
DX: Z01.810 Encounter for preprocedural cardiovascular examination (principal); Z01.811 Encounter for preprocedural respiratory examination; Z01.812 Encounter for preprocedural laboratory examination; R73.03 Prediabetes
CPT/HCPCS: 36415; 71046; 80048; 83036; 85025; 93005

== ENCOUNTER 2025-05-31 15:12 | Outpatient (CLI) | payer BC, SELFPAY ==
--- OUTSIDE RECORDS SUMMARY | 2025-05-31 15:16 | XMS_ITS | Clinical Summary ---
Author Organization [facility] Address [address] [place] [address] Care Team Providers Care Recordist Chief Name Role Phone Federico Whitehead MD Primary Care Provider [phone] Allergies Active Allergy Reactions Criticality Noted Date Comments Oxycodone Itching 04/27/2025 Medications oxyCODONE (ROXICODONE) 5 MG immediate release tablet Take 1 (one) Tablet by mouth every four to six hours, as needed 25 tablet 04/27/2025 Active HYDROcodone-acet aminophen (NORCO) 7.5-325 MG per tablet Take 1 (one) tablet by mouth every four to six hours, as needed 24 tablet 04/27/2025 11:26 AM EDT 04/27/2025 Active Social History Tobacco Use Types Packs/Day Years [...] 2010 ZOSTER VACCINE (1 of 2) 2010 INFLUENZA VACCINE 03/04/[address] [place] [address] EMPLOYEE Care Teams Recordist Chief Relationship Specialty Start Date End Date Federico Whitehead MD [address] [place] [address] PCP - General Family Medicine 05/31/16
--- NOTE | 2025-05-31 15:30 | MM_ITS ---
PROCEDURE INFORMATION: Exam: MG Bilateral Screening 3D Mammography Exam date and time: 05/31/2025 3:38 PM Age: 64 years old Clinical indication: Screening examination. TECHNIQUE: Imaging protocol: Bilateral Screening tomosynthesis and 2D mammography including computer-aided detection (CAD) when performed. COMPARISON: 1. MG MM DIG SCREENING MAMM BI W/CAD 03/26/2024 10:27 AM 2. MG MM DIG MAMM DX UNILAT LT CAD 03/17/2023 2:33 PM FINDINGS: MAMMOGRAPHY: Breast composition: There are scattered areas of fibroglandular density. Mass: None. Architectural distortion: None. Calcifications: No suspicious calcifications. Asymmetric density: None. Skin thickening: None. Axillary adenopathy: None. IMPRESSION: No mammographic evidence of malignancy. Annual screening is recommended unless otherwise clinically indicated. ASSESSMENT: BI-RADS Category 1: Negative.
== END 2025-05-31 23:59 | disposition home or self-care (01) ==
LOC: RAD 15:14
PROVIDERS: PCP Nurse Practitioner Family; Visit Provider Nurse Practitioner Obstetrics & Gynecology
DX: Z12.31 Encounter for screening mammogram for malignant neoplasm of breast (principal); R92.323 Mammographic fibroglandular density, bilateral breasts
CPT/HCPCS: 77063; 77067

== ENCOUNTER 2025-06-27 11:00 | Outpatient (RCR) | payer BC, SELFPAY | END 2025-06-27 23:59 | disposition home or self-care (01) | LOC: OT 11:00 | PROVIDERS: PCP Nurse Practitioner Family; Visit Provider Orthopaedic Surgery Sports Medicine | DX: Z47.1 Aftercare following joint replacement surgery (principal); Z96.611 Presence of right artificial shoulder joint | CPT/HCPCS: 97032; 97140; 97165; 97530 ==

== ENCOUNTER 2025-08-03 13:00 | Outpatient (RCR) | payer MEDICARE, SELFPAY | END 2025-08-03 23:59 | disposition home or self-care (01) | LOC: OT 13:00 | PROVIDERS: PCP Nurse Practitioner Family; Visit Provider Orthopaedic Surgery Sports Medicine | DX: Z47.89 Encounter for other orthopedic aftercare (principal); Z96.611 Presence of right artificial shoulder joint | CPT/HCPCS: 97032; 97110; 97140; 97530 ==